=== PATIENT | male | born 1970 | race African-American/Black ===

== ENCOUNTER 2020-03-25 00:32 | Inpatient (IN) ==
[2020-03-25] MEDS ORDERED: ZOFRAN INJ 4 MG VIAL ONE ×2 (00:39→05:02)
[2020-03-25] MEDS ORDERED: APRESOLINE INJ 20 MG VIAL IVP ONE ×3 (00:47→14:36)
[2020-03-25] MEDS ORDERED: ZOFRAN INJ 4 MG VIAL IM ONE (00:50)
[2020-03-25 00:52] VITALS: BMI 32.5
[2020-03-25] MEDS ORDERED: APRESOLINE INJ 20 MG VIAL ONE ×3 (00:57→14:52)
--- NOTE | 2020-03-25 01:02 | DR.N/VMALE ---
HPI Time Seen Time Seen by Provider: 03/25/20 00:46 HPI Comment HPI Comment: Brought in by ems with elevated bp and "afib"; appears reluctant to speak and begins vomiting and c/o abd pain which began this afternoon; denies h/o afib, no cp, sob, fever or chills; admits to having a beer and a "shot" of alcohol earlier today but denies drugs. PMH PMH Past Medical History: Hypertension Past Surgical History: No Surgical History: No History Family History Family Medical History: Diabetes Mellitus, Cancer, Coronary Artery Disease and Hypertension Social History Do you use any recreational Drugs:: No ROS Review of Systems Constitutional: Malaise Eyes: No Symptoms Reported ENTM: No Symptoms Reported Respiratoy: No Symptoms Reported Cardiovascular: No Symptoms Reported Gastrointestinal/Abdominal: See HPI Genitourinary: No Symptoms Reported Neurological: No Symptoms Reported Musculoskeletal: No Symptoms Reported Integumentary: No Symptoms Reported Hematologic/Lymphatic: No Symptoms Reported PE Vital Signs Vitals: Temperature 98 F Pulse Rate [Apical] 97 Pulse Rate 71 Respiratory Rate 18 Blood Pressure [Left Arm] 197/113 Blood Pressure 228/115 O2 Sat by Pulse Oximetry 95 General Limitations: Other (somnolent, uncooperative, low speech) General Appearance: Alert Head Head Exam: Normal Inspection, Atraumatic and Normocephalic Eyes Eye exam: Normal Appearance Neck Neck Exam: Normal Inspection, Full ROM and Trachea Midline Chest Chest Inspection: Normal Inspection and Symmetric Chest Wall Rise Respiratory Respiratory Exam: Normal Lung Sounds Bilat Respiratory Exam: Bilateral: Clear to Auscultation Cardiovascular Cardiovascular Exam: Regular Rate and Normal Rhythm Abdominal Exam Abdominal Exam: Normal Inspection, Normal Bowel Sounds and Tenderness (actively throwing up) Extremities Extremities Exam: Normal Inspection and Full ROM Back Back Exam: Normal Inspection and Full ROM Psychiatric Psychiatric Exam: Flat Affect Skin Skin Exam: Warm and Dry COURSE Treatment Treatment: use morphine for prn abd pain as pt throwing up and has crf emesis appears coffee ground Reevaluation 1st: Unchanged 2nd: Worsened ("cramping" abd pain) ROR Labs Reviewed Laboratory Results Reviewed?: Yes Result Diagrams: 03/25/20 00:57 03/25/20 00:57 Laboratory: WBC 9.3 X10^3/uL (3.6-10.0) 03/25/20 00:57 RBC 5.47 X10^6/uL (4.7-6.0) 03/25/20 00:57 Hgb 17.2 g/dL (13.5-18.0) 03/25/20 00:57 Hct 50.6 % (42.0-54.0) 03/25/20 00:57 MCV 92.6 fL (80.0-100.0) 03/25/20 00:57 MCH 31.4 pg (27.0-34.0) 03/25/20 00:57 MCHC 34.0 g/dL (33.0-35.0) 03/25/20 00:57 RDW 13.7 % (11.6-16.5) 03/25/20 00:57 Plt Count 340 X10^3/uL (150.0-450.0) 03/25/20 00:57 MPV 8.8 fL (7.4-11.0) 03/25/20 00:57 Neut % (Auto) 83.4 % (42.0-75.0) H 03/25/20 00:57 Lymph % (Auto) 11.0 % (21.0-51.0) L 03/25/20 00:57 [place] % (Auto) 4.1 % (0.0-13.0) 03/25/20 00:57 Eos % (Auto) 0.5 % (0.9-2.9) L 03/25/20 00:57 Baso % (Auto) 1.0 % (0.2-1.0) 03/25/20 00:57 Neut # (Auto) 7.8 x10^3/uL (2.2-4.8) H 03/25/20 00:57 Lymph # (Auto) 1.0 X10^3/uL (1.3-2.9) L 03/25/20 00:57 [place] # (Auto) 0.4 x10^3/uL (0.3-0.8) 03/25/20 00:57 Eos # (Auto) 0.0 x10^3/uL (0.0-0.2) 03/25/20 00:57 Baso # (Auto) 0.1 X10^3/uL (0.0-0.1) 03/25/20 00:57 Absolute Nucleated RBC 0.3 /100WBC 03/25/20 00:57 Sodium 148 mmol/L (136-145) H 03/25/20 00:57 Corrected Sodium 149 mmol/L (136-145) H 03/25/20 00:57 Potassium 3.1 mmol/L (3.5-5.1) L 03/25/20 00:57 Chloride 111 mmol/L (98-107) H 03/25/20 00:57 Carbon Dioxide 25.6 mmol/L (21-32) 03/25/20 00:57 BUN 17 mg/dL (7-18) 03/25/20 00:57 Creatinine 3.23 mg/dL (0.70-1.30) H 03/25/20 00:57 Est GFR (MDRD) Af Amer 27 (>60) L 03/25/20 00:57 Est GFR (MDRD) Non-Af 22 (>60) L 03/25/20 00:57 Glucose 128 mg/dL (65-99) H 03/25/20 00:57 Calcium 9.2 mg/dL (8.5-10.1) 03/25/20 00:57 Corrected Calcium 10.7 mg/dL (8.5-10.1) H 03/25/20 00:57 Total Bilirubin 0.70 mg/dL (0.2-1.0) 03/25/20 00:57 AST 34 Units/L (15-37) 03/25/20 00:57 ALT 36 Units/L (12-78) 03/25/20 00:57 Alkaline Phosphatase 81 Units/L (46-116) 03/25/20 00:57 Creatine Kinase 650 Units/L (39-308) H 03/25/20 00:57 CK-MB (CK-2) 6.8 ng/mL (0-4.0) H* 03/25/20 00:57 CK/CKMB % Calc 1.1 % (<4) 03/25/20 00:57 Troponin I < 0.02 ng/mL (0-1.5) 03/25/20 00:57 Total Protein 6.4 g/dL (6.4-8.2) 03/25/20 00:57 Albumin 2.1 g/dL (3.4-5.0) L 03/25/20 00:57 Globulin 4.3 g/dL (2.5-4.5) 03/25/20 00:57 Albumin/Globulin Ratio 0.5 Ratio (1.1-2.1) L 03/25/20 00:57 Amylase 211 Units/L (25-115) H 03/25/20 00:57 Lipase 67 Units/L (73-393) L 03/25/20 00:57 Specimen Type Clean catch urine 03/25/20 01:03 Urine Color Yellow (YELLOW) 03/25/20 01:03 Urine Appearance Clear (CLEAR) 03/25/20 01:03 Urine pH 7.0 (5.0 - 8.0) 03/25/20 01:03 Ur Specific [place] 1.015 (1.000-1.030) 03/25/20 01:03 Urine Protein 4+ (NEGATIVE) 03/25/20 01:03 Urine Glucose (UA) 2+ (NEGATIVE) 03/25/20 01:03 Urine Ketones 1+ (NEGATIVE) 03/25/20 01:03 Urine Occult Blood 3+ (NEGATIVE) 03/25/20 01:03 Urine Nitrite Negative (NEGATIVE) 03/25/20 01:03 Urine Bilirubin Negative (NEGATIVE) 03/25/20 01:03 Urine Urobilinogen Normal (NORMAL) 03/25/20 01:03 Ur Leukocyte Esterase Negative (NEGATIVE) 03/25/20 01:03 Urine RBC 3-5 /HPF (0-3) A 03/25/20 01:03 Urine WBC None seen /HPF (0-5) 03/25/20 01:03 Ur Squamous Epith Cells Few /HPF (NEGATIVE) 03/25/20 01:03 Urine Bacteria Negative /HPF (NEGATIVE) 03/25/20 01:03 Other Casts Few /LPF (NEGATIVE) 03/25/20 01:03 Ur Culture Indicated? No/not indicated 03/25/20 01:03 Stool Description Fob tube 03/25/20 03:35 Stl Occult Blood (IFOB) Positive (NEGATIVE) A 03/25/20 03:35 Urine Opiates Screen Negative (NEG=<300) 03/25/20 01:03 Urine Methadone Screen Negative (NEG=<300) 03/25/20 01:03 Ur Barbiturates Screen Negative (NEG=<200) 03/25/20 01:03 Ur Phencyclidine Scrn Negative (NEG=<25) 03/25/20 01:03 Ur Amphetamines Screen Negative (NEG=<1000) 03/25/20 01:03 U Benzodiazepines Scrn Negative (NEG=<200) 03/25/20 01:03 Urine Cocaine Screen Positive (NEG=<300) 03/25/20 01:03 U Marijuana (THC) Screen Negative (NEG=<50) 03/25/20 01:03 Ethyl Alcohol mg/dL < 3 mg/dL (0-19.9) 03/25/20 00:57 XRAY XRAY Interpreted by: Radiologist X-ray Results: 1. THE LUNGS ARE CLEAR AND THE HEART SIZE IS NORMAL. 2. THE BOWEL GAS PATTERN IS NONOBSTRUCTIVE. Opioid Opioid Risk Tool Family Hx of Substance Abuse: Alcohol Personal Hx of Substance Abuse: Alcohol Age (Nav box if 16-45): No History of Preadolescent Sexual Abuse: No Psychological Disease: Depression Total: 0 Total Score Risk Category: Low Risk Copyright: Wilber AGEE predicting aberrant behaviors Diagnosis Discharge Problem: Acute GI bleeding, Acute hypokalemia, Cocaine abuse Hematuria Qualifiers: Hematuria type: other microscopic Qualified Code(s): R31.29 - Other microscopic hematuria Acute on chronic renal failure Qualifiers: Acute renal failure type: unspecified Chronic kidney disease stage: unspecified stage Qualified Code(s): N17.9 - Acute kidney failure, unspecified Instructions Instructions: Gastrointestinal Bleeding, [id number] Forms: Excuse From Work Precautions for COVID19 Patient Portal Social Distancing
[2020-03-25 01:17] LABS: BASOPHILS # (AUTO) 0.1 X10^3/uL (0.0-0.1); EOSINOPHILS % (AUTO) 0.5 % (0.9-2.9); HEMATOCRIT 50.6 % (42.0-54.0); HEMOGLOBIN 17.2 g/dL (13.5-18.0); MEAN CORPUSCULAR HEMOGLOBIN 31.4 pg (27.0-34.0); MEAN CORPUSCULAR VOLUME 92.6 fL (80.0-100.0); MEAN PLATELET VOLUME 8.8 fL (7.4-11.0); MONOCYTES # (AUTO) 0.4 x10^3/uL (0.3-0.8); MONOCYTES % (AUTO) 4.1 % (0.0-13.0); NEUTROPHILS # (AUTO) 7.8 x10^3/uL (2.2-4.8); NEUTROPHILS % (AUTO) 83.4 % (42.0-75.0); PLATELET COUNT 340 X10^3/uL (150.0-450.0); RED BLOOD COUNT 5.47 X10^6/uL (4.7-6.0); RED CELL DISTRIBUTION WIDTH 13.7 % (11.6-16.5); WHITE BLOOD COUNT 9.3 X10^3/uL (3.6-10.0)
[2020-03-25 01:27] LABS: BILIRUBIN,URINE NEGATIVE (NEGATIVE); BLOOD/HEMOGLOBIN,URINE 3+ (NEGATIVE); GLUCOSE, URINE 2+ (NEGATIVE); KETONES,URINE 1+ (NEGATIVE); LEUKOCYTE ESTERASE ,URINE NEGATIVE (NEGATIVE); NITRITES,URINE NEGATIVE (NEGATIVE); PROTEIN,URINE 4+ (NEGATIVE); UROBILINOGEN,URINE NORMAL (NORMAL)
[2020-03-25 01:28] LABS: APPEARANCE,URINE CLEAR (CLEAR); COLOR,URINE YELLOW (YELLOW)
[2020-03-25 01:55] LABS: ALANINE AMINOTRANSFERASE 36 Units/L (12-78); ALBUMIN 2.1 g/dL (3.4-5.0); ALKALINE PHOSPHATASE 81 Units/L (46-116); AMYLASE 211 Units/L (25-115); ASPARTATE AMINO TRANSFERASE 34 Units/L (15-37); BLOOD ALCOHOL < 3 mg/dL (0-19.9); BLOOD UREA NITROGEN 17 mg/dL (7-18); CALCIUM 9.2 mg/dL (8.5-10.1); CARBON DIOXIDE 25.6 mmol/L (21-32); CHLORIDE 111 mmol/L (98-107); CKMB % 1.1 % (<4); COR CA(FOR HYPOALB) 10.7 mg/dL (8.5-10.1); COR NA(FOR HYPERGLY) 149 mmol/L (136-145); CREATINE KINASE 650 Units/L (39-308); CREATININE 3.23 mg/dL (0.70-1.30); LIPASE 67 Units/L (73-393); SODIUM 148 mmol/L (136-145); TOTAL PROTEIN 6.4 g/dL (6.4-8.2); TROPONIN I < 0.02 ng/mL (0-1.5); eGFR NON BLACK RACES 22 (>60)
[2020-03-25 01:59] LABS: CREATINE KINASE MB 6.8 ng/mL (0-4.0)
--- NOTE | 2020-03-25 02:00 | RAD ---
STUDY: ACUTE ABDOMEN SERIESCOMPARISON: NoneHISTORY: pt c/o n/v admits to drinking liquor and beer todayFINDINGS:CHEST:There is no focal consolidation seen.The heart size is normal.The mediastinum is unremarkable.There is no evidence of pleural effusion or gross pneumothorax.ABDOMEN:The bowel gas pattern is nonobstructive.There is no gross evidence of free air.There are no abnormal masses or calcification seen.The visualized bones demonstrate degenerative changes.IMPRESSION:1. THE LUNGS ARE CLEAR AND THE HEART SIZE IS NORMAL.2. THE BOWEL GAS PATTERN IS NONOBSTRUCTIVE.Electronically signed by: Twan Kilgore (March 25, 2020 01:59:18)
[2020-03-25 03:07] LABS: SQUAMOUS EPITHELIAL CELL,UR FEW /HPF (NEGATIVE)
[2020-03-25 03:08] LABS: BACTERIA,URINE NEGATIVE /HPF (NEGATIVE); OTHER CASTS, URINE FEW /LPF (NEGATIVE)
[2020-03-25] MEDS ORDERED: NS 1000 ML 1,000 ML IV ONE (03:33)
[2020-03-25] MEDS ORDERED: NS 1000 ML 1,000 ML ONE ×2 (03:41→06:11)
[2020-03-25] MEDS ORDERED: K-RIDER 10 MEQ/NS 100 ML 10 MEQ/100 ML BAG IV ONE (03:44)
[2020-03-25] MEDS: K-RIDER 10 MEQ/NS 100 ML 10 MEQ/100 ML BAG IV SCH ×2 (03:49→09:13)
[2020-03-25] MEDS ORDERED: LOPRESSOR INJ 5 MG AMP IVP ONE (04:38)
[2020-03-25] MEDS ORDERED: PROTONIX INJ 40 MG VIAL IVP ONE (04:41)
[2020-03-25] MEDS ORDERED: PROTONIX INJ 40 MG VIAL ONE (04:44)
[2020-03-25] MEDS ORDERED: LOPRESSOR INJ 5 MG AMP ONE (04:44)
[2020-03-25] MEDS ORDERED: ZOFRAN INJ 4 MG VIAL IV ONE (04:58)
[2020-03-25] MEDS ORDERED: MORPHINE SULFATE INJ 2 MG INJ IV ONE (05:00)
[2020-03-25] MEDS ORDERED: MORPHINE SULFATE INJ 2 MG INJ ONE (05:02)
[2020-03-25] MEDS ORDERED: CARDIZEM INJ 50 MG VIAL IVP ONE (05:13)
[2020-03-25] MEDS ORDERED: CARDIZEM INJ 50 MG VIAL ONE (05:33)
[2020-03-25] MEDS ORDERED: MORPHINE SULFATE INJ 2 MG INJ IVP PRN (05:33)
[2020-03-25] MEDS ORDERED: CARDIZEM INJ 125 MG VIAL 125 MG in NS 100 ML IV 100 ML IV PRN (05:33)
[2020-03-25] MEDS ORDERED: NS 100 ML IV 100 ML IV ONE (06:06)
[2020-03-25] MEDS ORDERED: CARDIZEM INJ 125 MG VIAL ONE (06:07)
--- NOTE | 2020-03-25 08:32 | US ---
HISTORYHematuria, chronic renal failureSTUDYRENAL SONOGRAMTechnique: Multiple grayscale sonographic images were obtained.COMPARISONNoneFINDINGSThe right kidney measured 10 x 4.8 x 5.2 cm. Cortical thickness is normal. Cortical echogenicity is increased suggestive of chronic renal disease. No solid masses, hydronephrosis, stones, or perinephric fluid collections are identified. The left kidney measured 10.6 x 5.2 x 5.5 cm. Cortical thickness is normal. Increased cortical echogenicity is identified suggestive of medical renal disease. No solid masses, hydronephrosis, stones, or perinephric fluid collections are identified. Trace ascites is identified. No bladder abnormality is identified.IMPRESSIONNo evidence for hydronephrosisIncreased renal cortical echogenicity suggestive of medical renal diseaseElectronically signed by: RANDAL SHELTON (March 25, 2020 08:31:05)
[2020-03-25] MEDS: PROTONIX INJ 40 MG VIAL IVP SCH (09:13)
[2020-03-25 10:27] LABS: BASOPHILS % (AUTO) 0.3 % (0.2-1.0); HEMATOCRIT 51.5 % (42.0-54.0); HEMOGLOBIN 17.4 g/dL (13.5-18.0); LYMPHOCYTES # (AUTO) 0.7 X10^3/uL (1.3-2.9); LYMPHOCYTES % (AUTO) 5.3 % (21.0-51.0); MEAN CORPUSCULAR HEMOGLOBIN 31.3 pg (27.0-34.0); MEAN CORPUSCULAR HGB CONC 33.8 g/dL (33.0-35.0); MEAN CORPUSCULAR VOLUME 92.6 fL (80.0-100.0); MEAN PLATELET VOLUME 8.6 fL (7.4-11.0); MONOCYTES # (AUTO) 0.6 x10^3/uL (0.3-0.8); MONOCYTES % (AUTO) 4.5 % (0.0-13.0); NEUTROPHILS # (AUTO) 12.6 x10^3/uL (2.2-4.8); NEUTROPHILS % (AUTO) 89.9 % (42.0-75.0); PLATELET COUNT 358 X10^3/uL (150.0-450.0); RED BLOOD COUNT 5.56 X10^6/uL (4.7-6.0); RED CELL DISTRIBUTION WIDTH 14.1 % (11.6-16.5)
[2020-03-25 10:32] LABS: BLOOD UREA NITROGEN 20 mg/dL (7-18); CALCIUM 8.9 mg/dL (8.5-10.1); CARBON DIOXIDE 20.6 mmol/L (21-32); CHLORIDE 111 mmol/L (98-107); CREATININE 2.86 mg/dL (0.70-1.30); SODIUM 146 mmol/L (136-145); eGFR NON BLACK RACES 25 (>60)
[2020-03-25] MEDS ORDERED: K-RIDER 10 MEQ/NS 100 ML 10 MEQ/100 ML BAG IV PRN (10:39)
[2020-03-25] MEDS ORDERED: MICRO K EXTEN CAP 10 MEQ PO PRN (10:39)
[2020-03-25] MEDS ORDERED: K-DUR TAB 20 MEQ PO PRN (10:39)
[2020-03-25] MEDS ORDERED: MAGNESIUM SULFATE 1 GRAM/100 mL PREMIX 1 GM/100 ML BAG IV PRN (10:39)
[2020-03-25] MEDS ORDERED: POTASSIUM CHLORIDE LIQ 20 MEQ UDC PO PRN (10:39)
[2020-03-25] MEDS ORDERED: KLOR-CON PO PRN (10:39)
[2020-03-25] MEDS ORDERED: POTASSIUM CHL 40 MEQ/NS 0.45% 500 ML IV PRN (10:39)
[2020-03-25] MEDS ORDERED: POTASSIUM CHL 60 MEQ/NS 0.45% 500 ML IV PRN (10:39)
[2020-03-25] MEDS ORDERED: CATAPRES-TTS-2 TD SCH (11:00)
[2020-03-25] MEDS: MILK OF MAGNESIA PO SCH ×2 (11:12→21:05)
[2020-03-25 11:59] LABS: ALANINE AMINOTRANSFERASE 35 Units/L (12-78); ALBUMIN 2.1 g/dL (3.4-5.0); ALKALINE PHOSPHATASE 81 Units/L (46-116); ASPARTATE AMINO TRANSFERASE 34 Units/L (15-37); CKMB % 1.4 % (<4); COR CA(FOR HYPOALB) 10.4 mg/dL (8.5-10.1); CREATINE KINASE 506 Units/L (39-308); TOTAL PROTEIN 6.6 g/dL (6.4-8.2); TROPONIN I 0.13 ng/mL (0-1.5)
[2020-03-25] MEDS: CARDIZEM CD 180 MG 24-HR PO SCH (12:56)
[2020-03-25] MEDS: ZOFRAN INJ 4 MG VIAL IVP PRN (14:00)
[2020-03-25] MEDS: CARDIZEM INJ 125 MG VIAL 125 MG in NS 100 ML IV 100 ML IV PRN (15:28)
[2020-03-25] MEDS: LOPRESSOR TAB 50 MG PO SCH ×2 (15:50→21:03)
[2020-03-25] MEDS ORDERED: PHENERGAN INJ 25 MG IM ONE (17:22)
[2020-03-25] MEDS: PHENERGAN INJ 25 MG IM PRN (17:36)
[2020-03-25 18:57] LABS: CKMB % 1.8 % (<4); TROPONIN I 0.12 ng/mL (0-1.5)
[2020-03-25] MEDS: NS 1000 ML 1,000 ML IV SCH ×2 (19:42→21:02)
[2020-03-25] MEDS: COLACE CAP 100 MG PO SCH (21:03)
[2020-03-25 21:20] LABS: CREATINE KINASE MB 6.2 ng/mL (0-4.0)
[2020-03-25 22:46] LABS: CKMB % 1.7 % (<4); TROPONIN I 0.16 ng/mL (0-1.5)
[2020-03-25 22:51] LABS: CREATINE KINASE MB 5.5 ng/mL (0-4.0)
[2020-03-26] MEDS: CARDIZEM INJ 125 MG VIAL 125 MG in NS 100 ML IV 100 ML IV PRN (00:48)
[2020-03-26 06:32] LABS: BASOPHILS # (AUTO) 0.1 X10^3/uL (0.0-0.1); EOSINOPHILS # (AUTO) 0.1 x10^3/uL (0.0-0.2); EOSINOPHILS % (AUTO) 0.8 % (0.9-2.9); HEMATOCRIT 44.3 % (42.0-54.0); HEMOGLOBIN 14.8 g/dL (13.5-18.0); LYMPHOCYTES # (AUTO) 2.4 X10^3/uL (1.3-2.9); LYMPHOCYTES % (AUTO) 16.1 % (21.0-51.0); MEAN CORPUSCULAR HEMOGLOBIN 31.4 pg (27.0-34.0); MEAN CORPUSCULAR HGB CONC 33.4 g/dL (33.0-35.0); MEAN CORPUSCULAR VOLUME 94.1 fL (80.0-100.0); MEAN PLATELET VOLUME 9.3 fL (7.4-11.0); MONOCYTES # (AUTO) 1.4 x10^3/uL (0.3-0.8); MONOCYTES % (AUTO) 9.2 % (0.0-13.0); NEUTROPHILS # (AUTO) 11.1 x10^3/uL (2.2-4.8); NEUTROPHILS % (AUTO) 72.9 % (42.0-75.0); PLATELET COUNT 326 X10^3/uL (150.0-450.0); RED BLOOD COUNT 4.71 X10^6/uL (4.7-6.0); RED CELL DISTRIBUTION WIDTH 14.2 % (11.6-16.5); WHITE BLOOD COUNT 15.2 X10^3/uL (3.6-10.0)
[2020-03-26 06:48] LABS: ALANINE AMINOTRANSFERASE 25 Units/L (12-78); ALBUMIN 1.7 g/dL (3.4-5.0); ALKALINE PHOSPHATASE 58 Units/L (46-116); ASPARTATE AMINO TRANSFERASE 26 Units/L (15-37); BLOOD UREA NITROGEN 20 mg/dL (7-18); CALCIUM 7.8 mg/dL (8.5-10.1); CARBON DIOXIDE 23.9 mmol/L (21-32); CHLORIDE 113 mmol/L (98-107); COR CA(FOR HYPOALB) 9.6 mg/dL (8.5-10.1); CREATININE 3.29 mg/dL (0.70-1.30); SODIUM 146 mmol/L (136-145); TOTAL PROTEIN 5.1 g/dL (6.4-8.2); eGFR NON BLACK RACES 21 (>60)
[2020-03-26] MEDS: K-RIDER 10 MEQ/NS 100 ML 10 MEQ/100 ML BAG IV SCH (08:48)
[2020-03-26] MEDS: PROTONIX INJ 40 MG VIAL IVP SCH (08:50)
[2020-03-26] MEDS: NS 1000 ML 1,000 ML IV SCH ×2 (08:51→22:16)
[2020-03-26] MEDS: LOPRESSOR TAB 50 MG PO SCH ×2 (08:51→20:47)
[2020-03-26] MEDS: MILK OF MAGNESIA PO SCH ×2 (08:51→22:16)
--- NOTE | 2020-03-26 11:26 | DR.H&P ---
H&P - History & Physical for Day of: H&P Date: 03/25/20 - Chief Complaint Chief Complaint: ABDOMINAL PAIN, FATIGUE, VOMITING, A-FIB, HTN - History of Present Illness History of Present Illness: IS A 50 YEAR OLD BLACK MALE WHO PRESENTED TO THE ER VIA EMS WITH REPORTS OF ELEVATED BLOOD PRESSURE AND ATRIAL FIBRILLATION. PATIENT REPORTS COMPLAINTS OF ABDOMINAL PAIN, VOMITING, AND FATIGUE. SYMPTOMS BEGAN APPROXIMATELY 12 HOURS PRIOR TO ARRIVAL. HE RATES PAIN 5/10. HE DENIES CHEST PAIN, SOB, FEVER, OR CHILLS. HE DOES ADMIT TO HAVING A BEER AND A SHOT OF LIQUOR EARLIER IN THE DAY. HE ALSO ADMITTED TO USE OF COCAINE. PMH INCLUDES HTN. ON ARRIVAL TO THE ER, VITALS WERE 98.0-71-26-95%-228/115. LABS WERE OBTAINED. ABNORMAL LAB VALUES INCLUDE THE FOLLOWING: SODIUM 148, POTASSIUM 3.1, CHLORIDE 111, CREATININE 3.23, GLUCOSE 128, CALCIUM 10.7, CREATINE KINASE 650, CK-MB 6.8, ALBUMIN 2.1, AMYLASE 211, LIPASE 67. A URINALYSIS WAS OBTAINED AND REVEALED: WBC NONE SEEN, RBC 3-5, OCCULT 3+, BACTERIA NEGATIVE, KETONES 1+, PROTEIN 4+. STOOL IS POSTIVE FOR OCCULT BLOOD. URINE DRUG SCREEN IS POSITIVE FOR COCAINE. AN ABDOMINAL XRAY WAS OBTAINED AND REVEALED: 1. THE LUNGS ARE CLEAR AND THE HEART SIZE IS NORMAL. 2. THE BOWEL GAS PATTERN IS NONOBSTRUCTIVE. AN EKG WAS OBTAINED AND REVEALE SINUS ARRHYTHMIA WITH HR 57. A RENAL US WAS OBTAINED AND REVEALED: No evidence for hydronephrosis. Increased renal cortical echogenicity suggestive of medical renal disease. HE WAS GIVEN APRESOLINE 20MG IV X 1 DOSE, ZOFRAN 4MG IM X 1 DOSE. BLOOD PRESSURE REMAINE ELEVATED. HE WAS GIVEN AN ADDITIONAL DOSE OF APRESOLINE 20MG, A NORMAL SALINE BOLUS, LOPRESSOR 5MG IV X 1, ZOFRAN 4MG IV X 1, AND MORPHINE 2MG IV X 1. BLOOD PRESSURE ONLY DECREASED TO 198/110. HE WAS STARTED ON A CARDIZEM DRIP. HE WAS ADMITTED FOR FURTHER EVALUATION AND TREATMENT OF HYPERT ENSIVE URGENCY, GI BLEED, N/V/D, AND ACUTE ON CHRONIC RENAL FAILURE. HE WAS STARTED ON NS AT 80ML/HR, THE POPTASSIUM AND MAGNESIUM PROTOCOLS, LOPRESSOR 50MG PO BID, CATAPRES 0.2MG/HR TD PATCH, MORPHINE 2MG IV Q8H PRN, AND ZOFRAN 4MG IV Q8H PRN. WE WILL DISCONTINUE THE DRIP AND STARTE CARDIZEM CD 180MG PO DAILY. WE WILL MONITOR SERIAL CARDIAC ENZYMES AND EKGS. OTHERWISE, WE PLAN TO FOLLOW UP WITH AM LABS AND CONTINUE TO MONITOR. - Past Medical History Past Medical History: Hypertension - Past Surgical History Surgical History: No History - Family History Family Medical History: Diabetes Mellitus, Cancer, Coronary Artery Disease, Hypertension - Social History Does patient currently use any type of tobacco product: Yes Have you used tobacco products in the last 12 months: Yes Type of Tobacco Use: Cigarettes Does any household member use tobacco: No Alcohol Use: Occasionally Drug Use: Cocaine, Marijuana - Medications Home Medications: No Known Drug Allergies Allergy (Verified 11/23/19 16:59) CONTINUE taking the following medications NK 03/25/20 [History] - Review of Systems Constitutional: Malaise Eyes: No Symptoms Reported ENT: No Symptoms Reported Respiratory: No Symptoms Reported Cardiovascular: See HPI, Palpitations Gastrointestinal: See HPI, Vomiting, Abdominal Pain Genitourinary: No Symptoms Reported Musculoskeletal: No Symptoms Reported Skin: No Symptoms Reported Neurological: No Symptoms Reported - Physical Exam Vital Signs: Temperature 98.3 F Pulse Rate [Right Brachial] 64 Pulse Rate [Apical] 97 Pulse Rate 78 Respiratory Rate 18 Blood Pressure [Right Arm] 117/60 Blood Pressure [Left Arm] 197/113 Blood Pressure 220/122 O2 Sat by Pulse Oximetry 94 Oriented: Normal Eyes: Normal Ear: Normal Nose: Normal Throat: Normal Respiratory: Diminished Throughout Cardiovascular: Irregular. negative: S3, S4, Murmur : Normal Auscultation: Bowel Sounds: Normal Palpation: Normal Tenderness: Normal Skin: Normal Musculoskeletal: Normal Psychiatric: Normal Mood Description: Calm Affect: Normal Speech Pattern: Clear - Assessment/Plan (1) Hypertensive urgency Status: Acute Plan: ADMIT, NS AT 80ML/HR, THE POPTASSIUM AND MAGNESIUM PROTOCOLS, LOPRESSOR 50MG PO BID,CARDIZEM CD 180MG PO DAILY, CATAPRES 0.2MG/HR TD PATCH, MORPHINE 2MG IV Q8H PRN, AND ZOFRAN 4MG IV Q8H PRN. (2) Acute on chronic renal failure Qualifiers: Acute renal failure type: unspecified Chronic kidney disease stage: unspecified stage Qualified Code(s): N17.9 - Acute kidney failure, unspecified; N18.9 - Chronic kidney disease, unspecified Status: Acute (3) Hypernatremia Status: Acute (4) Acute hypokalemia Status: Acute (5) Acute GI bleeding Status: Acute (6) Nausea and vomiting Qualifiers: Vomiting type: unspecified Vomiting Intractability: non-intractable Qualified Code(s): R11.2 - Nausea with vomiting, unspecified Status: Acute - Allergies Allergies/Adverse Reactions: Allergies Allergy/AdvReac Type Severity Reaction Status Date / Time No Known Drug Allergies Allergy Verified 11/23/19 16:59
--- NOTE | 2020-03-26 14:56 | RAD ---
HISTORYSOBSTUDYCHEST, 1 VIEWCOMPARISONChest film December 01, 2019.FINDINGSThe trachea is midline. The cardiac silhouette is unremarkable . The lungs are clear without focal infiltrate or effusion. The bony thorax is unremarkable.IMPRESSIONNo acute cardiopulmonary disease and no significant change compared to December 01, 2019..Electronically signed by: FELIPE TEE (March 26, 2020 14:55:16)
[2020-03-26] MEDS: COLACE CAP 100 MG PO SCH (20:47)
--- NOTE | 2020-03-26 22:31 | PCM.PROG ---
Progress Note - Progress Note for Day of Date of Exam: 03/26/20 - Subjective Subjective: IS BEING TREATED FOR HYPERTENSIVE URGENCY, HYPERNATREMIA, HYPOKALEMIA, GI BLEED, NAUSEA AND VOMITING, AND ACUTE ON CHRONIC RENAL FAILURE. TODAY, HE IS ALERT, LYING IN BED ON MORNING ROUNDS. HE CONTINUES WITH COMPLAINTS OF NAUSEA. HE REPORTS MILD ABDOMINAL PAIN THIS MORNING. ON EXAMINATION, HEART IS REGULAR IN RATE AND RHYTHM. BILATERAL LUNGS ARE NOTED WITH DIMINISHED LUNG SOUNDS THROUGHOUT. ABDOMEN IS ROUND, SOFT, AND NOTED WITH DIFFUSE TENDERNESS TO PALPATION. NORMAL BOWEL SOUNDS ARE NOTED IN ALL QUADRANTS. HIS VITALS THIS MORNING ARE: 98.3-60-16-94%RA-112/56. LABS WERE OBTAINED. ABNORMAL LAB VALUES INCLUDE THE FOLLOWING: WBC 15.2, SODIUM 146, POTASSIUM 3.0, CHLORIDE 113, BUN 20, CREATININE 3.29, CALCIUM 7.8, TOTAL PROTEIN 5.1, ALBUMIN 1.7. HE IS CURRENTLY RECEIVING NS AT 80ML/HR, THE POPTASSIUM AND MAGNESIUM PROTOCOLS, LOPRESSOR 50MG PO BID, CATAPRES 0.2MG/HR TD PATCH, CARDIZEM CD 180MG PO DAILY, MORPHINE 2MG IV Q8H PRN, ZOFRAN 4MG IV Q8H PRN, AND THE POTASSIUM AND MAGNESIUM PROTOCOLS. TODAY, WE WILL CHANGE THE IV FLUIDS TO NORMAL SALINE. WE WILL OBTAIN A CHEST XRAY AND STOOL STUDIES DUE TO ELEVATED WBC. WE ALSO PLAN TO OBTAIN AN ABDOMEN/PELVIS CT WITHOUT CONTRAST IN THE MORNING DUE TO PERSISTENT ABDOMINAL PAIN. OTHERWISE, WE PLAN TO FOLLOW UP WITH AM LABS AND CONTINUE TO MONITOR. - Past Medical Family Social History Past Med/Fam/Surg Hx: No changes since H&P Allergies: Allergies No Known Drug Allergies Allergy (Verified 11/23/19 16:59) - Review of Systems ROS: No change since H&P - Vital Signs and I&O's Vital Signs: Temperature 98.0 F Pulse Rate [Right Brachial] 62 Pulse Rate [Apical] 97 Pulse Rate 78 Respiratory Rate 18 Blood Pressure [Right Arm] 121/77 Blood Pressure [Left Arm] 197/113 Blood Pressure 220/122 O2 Sat by Pulse Oximetry 96 Intake and Output: Intake & Output 03/24/20 03/25/20 03/26/20 03/27/20 11:59 11:59 11:59 11:59 Intake Total 1498 / 1498 1200 / 1200 Output Total 350 / 350 700 / 700 Balance -320 / -320 798 / 798 1200 / 1200 - Physical Exam Oriented: Normal Eyes: Normal Ear: Normal Nose: Normal Throat: Normal Respiratory: Generalized, Diminished Cardiovascular: Normal. negative: S3, S4, Murmur : Normal Auscultation: Bowel Sounds: Normal Palpation: Normal Tenderness: Normal Skin: Normal Musculoskeletal: Normal Psychiatric: Normal Mood Description: Calm Affect: Normal Speech Pattern: Clear, Appropriate - Laboratory and Diagnostics Result Diagrams: 03/26/20 05:30 03/26/20 05:30 Labs: Laboratory WBC 15.2 X10^3/uL (3.6-10.0) H 03/26/20 05:30 RBC 4.71 X10^6/uL (4.7-6.0) 03/26/20 05:30 Hgb 14.8 g/dL (13.5-18.0) D 03/26/20 05:30 Hct 44.3 % (42.0-54.0) 03/26/20 05:30 MCV 94.1 fL (80.0-100.0) 03/26/20 05:30 MCH 31.4 pg (27.0-34.0) 03/26/20 05:30 MCHC 33.4 g/dL (33.0-35.0) 03/26/20 05:30 RDW 14.2 % (11.6-16.5) 03/26/20 05:30 Plt Count 326 X10^3/uL (150.0-450.0) 03/26/20 05:30 MPV 9.3 fL (7.4-11.0) 03/26/20 05:30 Neut % (Auto) 72.9 % (42.0-75.0) 03/26/20 05:30 Lymph % (Auto) 16.1 % (21.0-51.0) L 03/26/20 05:30 [place] % (Auto) 9.2 % (0.0-13.0) 03/26/20 05:30 Eos % (Auto) 0.8 % (0.9-2.9) L 03/26/20 05:30 Baso % (Auto) 1.0 % (0.2-1.0) 03/26/20 05:30 Neut # (Auto) 11.1 x10^3/uL (2.2-4.8) H 03/26/20 05:30 Lymph # (Auto) 2.4 X10^3/uL (1.3-2.9) 03/26/20 05:30 [place] # (Auto) 1.4 x10^3/uL (0.3-0.8) H 03/26/20 05:30 Eos # (Auto) 0.1 x10^3/uL (0.0-0.2) 03/26/20 05:30 Baso # (Auto) 0.1 X10^3/uL (0.0-0.1) 03/26/20 05:30 Absolute Nucleated RBC 0.0 /100WBC 03/26/20 05:30 Sodium 146 mmol/L (136-145) H 03/26/20 05:30 Corrected Sodium TNP 03/26/20 05:30 Potassium 3.0 mmol/L (3.5-5.1) L* 03/26/20 05:30 Chloride 113 mmol/L (98-107) H 03/26/20 05:30 Carbon Dioxide 23.9 mmol/L (21-32) 03/26/20 05:30 BUN 20 mg/dL (7-18) H 03/26/20 05:30 Creatinine 3.29 mg/dL (0.70-1.30) H 03/26/20 05:30 Est GFR (MDRD) Af Amer 26 (>60) L 03/26/20 05:30 Est GFR (MDRD) Non-Af 21 (>60) L 03/26/20 05:30 Glucose 88 mg/dL (65-99) 03/26/20 05:30 Calcium 7.8 mg/dL (8.5-10.1) L 03/26/20 05:30 Corrected Calcium 9.6 mg/dL (8.5-10.1) 03/26/20 05:30 Magnesium 2.1 mg/dL (1.7-2.9) 03/25/20 10:13 Total Bilirubin 0.30 mg/dL (0.2-1.0) 03/26/20 05:30 AST 26 Units/L (15-37) 03/26/20 05:30 ALT 25 Units/L (12-78) 03/26/20 05:30 Alkaline Phosphatase 58 Units/L (46-116) 03/26/20 05:30 Creatine Kinase 322 Units/L (39-308) H 03/25/20 21:56 CK-MB (CK-2) 5.5 ng/mL (0-4.0) H* 03/25/20 21:56 CK/CKMB % Calc 1.7 % (<4) 03/25/20 21:56 Troponin I 0.16 ng/mL (0-1.5) 03/25/20 21:56 Total Protein 5.1 g/dL (6.4-8.2) L 03/26/20 05:30 Albumin 1.7 g/dL (3.4-5.0) L 03/26/20 05:30 Globulin 3.4 g/dL (2.5-4.5) 03/26/20 05:30 Albumin/Globulin Ratio 0.5 Ratio (1.1-2.1) L 03/26/20 05:30 Amylase 211 Units/L (25-115) H 03/25/20 00:57 Lipase 67 Units/L (73-393) L 03/25/20 00:57 Specimen Type Clean catch urine 03/25/20 01:03 Urine Color Yellow (YELLOW) 03/25/20 01:03 Urine Appearance Clear (CLEAR) 03/25/20 01:03 Urine pH 7.0 (5.0 - 8.0) 03/25/20 01:03 Ur Specific [place] 1.015 (1.000-1.030) 03/25/20 01:03 Urine Protein 4+ (NEGATIVE) 03/25/20 01:03 Urine Glucose (UA) 2+ (NEGATIVE) 03/25/20 01:03 Urine Ketones 1+ (NEGATIVE) 03/25/20 01:03 Urine Occult Blood 3+ (NEGATIVE) 03/25/20 01:03 Urine Nitrite Negative (NEGATIVE) 03/25/20 01:03 Urine Bilirubin Negative (NEGATIVE) 03/25/20 01:03 Urine Urobilinogen Normal (NORMAL) 03/25/20 01:03 Ur Leukocyte Esterase Negative (NEGATIVE) 03/25/20 01:03 Urine RBC 3-5 /HPF (0-3) A 03/25/20 01:03 Urine WBC None seen /HPF (0-5) 03/25/20 01:03 Ur Squamous Epith Cells Few /HPF (NEGATIVE) 03/25/20 01:03 Urine Bacteria Negative /HPF (NEGATIVE) 03/25/20 01:03 Other Casts Few /LPF (NEGATIVE) 03/25/20 01:03 Ur Culture Indicated? No/not indicated 03/25/20 01:03 Stool Description Fob tube 03/25/20 03:35 Stl Occult Blood (IFOB) Positive (NEGATIVE) A 03/25/20 03:35 Urine Opiates Screen Negative (NEG=<300) 03/25/20 01:03 Urine Methadone Screen Negative (NEG=<300) 03/25/20 01:03 Ur Barbiturates Screen Negative (NEG=<200) 03/25/20 01:03 Ur Phencyclidine Scrn Negative (NEG=<25) 03/25/20 01:03 Ur Amphetamines Screen Negative (NEG=<1000) 03/25/20 01:03 U Benzodiazepines Scrn Negative (NEG=<200) 03/25/20 01:03 Urine Cocaine Screen Positive (NEG=<300) 03/25/20 01:03 U Marijuana (THC) Screen Negative (NEG=<50) 03/25/20 01:03 Ethyl Alcohol mg/dL < 3 mg/dL (0-19.9) 03/25/20 00:57 - Plan (1) Hypertensive urgency Status: Acute Plan: 1/2 NS AT 80ML/HR, THE POTASSIUM AND MAGNESIUM PROTOCOLS, LOPRESSOR 50MG PO BID,CARDIZEM CD 180MG PO DAILY, CATAPRES 0.3MG/HR TD PATCH, MORPHINE 2MG IV Q8H PRN, AND ZOFRAN 4MG IV Q8H PRN. (2) Acute on chronic renal failure Status: Acute Qualifiers: Acute renal failure type: unspecified Chronic kidney disease stage: unspecified stage Qualified Code(s): N17.9 - Acute kidney failure, unspecified; N18.9 - Chronic kidney disease, unspecified Plan: CONTINUE IV FLUIDS (3) Hypernatremia Status: Acute Plan: 1/2NS AT 80 ML/HR (4) Acute hypokalemia Status: Acute Plan: POTASSIUM AND MAGNESIUM PROTOCOLS (5) Acute GI bleeding Status: Acute (6) Nausea and vomiting Status: Acute Qualifiers: Vomiting type: unspecified Vomiting Intractability: non-intractable Qual ified Code(s): R11.2 - Nausea with vomiting, unspecified Plan: OBTAIN ABDOMEN/PELVIS CT IN AM
[2020-03-26] MEDS: NS 1/2 1000 ML IV 1,000 ML IV SCH (23:52)
[2020-03-26] MEDS ORDERED: NS 1/2 1000 ML IV 1,000 ML IV ONE (23:52)
--- NOTE | 2020-03-27 02:55 | CT ---
CT abdomen and pelvis without contrastIndication: Abdominal pain with nausea and vomitingCOMPARISONMay 2019 renal sonogram. November 19, 2018 CT from an outside facilityTECHNIQUEHelical images through the abdomen and pelvis without contrast. Coronal and sagittal reformats provided.FINDINGSLimited images through the lower chest shows prominent heart size with small right effusion. Body wall anasarca suggested. Developing consolidation in the right lower lung not excluded. Review of bone windows demonstrates spine and pelvis DJD without destructive osseous lesion.Abdomen: The liver, gallbladder, spleen, pancreas and adrenal glands are within normal limits for noncontrast study. The kidneys appear normal without hydroureteronephrosis. Few iliac calcifications noted.The stomach and small bowel show no convincing acute abnormality. Few right colonic diverticula noted with minimal adjacent stranding, although this could be related to the diffuse mild anasarca in general mesenteric stranding.. The appendix is normal. No acute colonic abnormality seen.Pelvis: Urinary bladder and rectum are normal. Prostate gland is normal.IMPRESSION1. Right colon diverticula with minimal adjacent stranding. Diverticulitis is not excluded.2. Right lower lung opacity and effusion. Developing right lower lung pneumonia is likely. Correlate clinically and follow-up to resolution to exclude underlying lesion3. Lack of contrast limits sensitivity. Few vascular calcifications, spine DJD, and other findings as above.Electronically signed by: MIROSLAVA SELLERS (March 27, 2020 02:53:39)
[2020-03-27 05:40] LABS: ALANINE AMINOTRANSFERASE 25 Units/L (12-78); ALBUMIN 1.5 g/dL (3.4-5.0); ALKALINE PHOSPHATASE 53 Units/L (46-116); AMYLASE 45 Units/L (25-115); ASPARTATE AMINO TRANSFERASE 11 Units/L (15-37); BLOOD UREA NITROGEN 19 mg/dL (7-18); CALCIUM 7.4 mg/dL (8.5-10.1); CARBON DIOXIDE 24.5 mmol/L (21-32); CHLORIDE 110 mmol/L (98-107); COR CA(FOR HYPOALB) 9.4 mg/dL (8.5-10.1); CREATININE 3.12 mg/dL (0.70-1.30); LIPASE 149 Units/L (73-393); SODIUM 141 mmol/L (136-145); TOTAL PROTEIN 4.5 g/dL (6.4-8.2); eGFR NON BLACK RACES 23 (>60)
[2020-03-27 05:43] LABS: BASOPHILS # (AUTO) 0.1 X10^3/uL (0.0-0.1); BASOPHILS % (AUTO) 0.9 % (0.2-1.0); EOSINOPHILS # (AUTO) 0.5 x10^3/uL (0.0-0.2); EOSINOPHILS % (AUTO) 4.7 % (0.9-2.9); HEMATOCRIT 39.3 % (42.0-54.0); HEMOGLOBIN 13.1 g/dL (13.5-18.0); LYMPHOCYTES % (AUTO) 20.9 % (21.0-51.0); MEAN CORPUSCULAR HEMOGLOBIN 31.7 pg (27.0-34.0); MEAN CORPUSCULAR HGB CONC 33.4 g/dL (33.0-35.0); MEAN CORPUSCULAR VOLUME 94.8 fL (80.0-100.0); MEAN PLATELET VOLUME 9.7 fL (7.4-11.0); MONOCYTES # (AUTO) 1.2 x10^3/uL (0.3-0.8); NEUTROPHILS % (AUTO) 61.5 % (42.0-75.0); PLATELET COUNT 271 X10^3/uL (150.0-450.0); RED BLOOD COUNT 4.14 X10^6/uL (4.7-6.0); RED CELL DISTRIBUTION WIDTH 14.5 % (11.6-16.5); WHITE BLOOD COUNT 9.8 X10^3/uL (3.6-10.0)
[2020-03-27] MEDS: MILK OF MAGNESIA PO SCH ×2 (08:42→20:55)
[2020-03-27] MEDS: LOPRESSOR TAB 50 MG PO SCH ×2 (08:42→20:55)
[2020-03-27] MEDS: PROTONIX INJ 40 MG VIAL IVP SCH (08:42)
[2020-03-27] MEDS: CARDIZEM CD 180 MG 24-HR PO SCH (08:42)
[2020-03-27] MEDS: K-RIDER 10 MEQ/NS 100 ML 10 MEQ/100 ML BAG IV SCH (08:42)
[2020-03-27] MEDS ORDERED: LEVAQUIN PREMIX IV 750 MG 750 MG/150 ML BAG IV SCH (09:00)
[2020-03-27 09:04] LABS: CREATINE KINASE MB 1.9 ng/mL (0-4.0); TROPONIN I 0.03 ng/mL (0-1.5)
[2020-03-27] MEDS: FORTAZ or TAZICEF VIAL INJ 1 G in NS 100 ML IV 100 ML IV SCH (09:49)
[2020-03-27] MEDS: DUONEB 0.5 MG/3 MG (3 mL) NEB SCH ×4 (12:28→21:00)
[2020-03-27] MEDS: ZOFRAN INJ 4 MG VIAL IVP PRN (14:21)
[2020-03-27] MEDS ORDERED: NS 1/2 1000 ML IV 1,000 ML IV ONE (16:59)
[2020-03-27] MEDS: NS 1/2 1000 ML IV 1,000 ML IV SCH (17:01)
[2020-03-27] MEDS: COLACE CAP 100 MG PO SCH (20:55)
[2020-03-27] MEDS: APRESOLINE INJ 20 MG VIAL IVP PRN (22:15)
[2020-03-28] MEDS ORDERED: NS 1/2 1000 ML IV 1,000 ML IV ONE (02:58)
[2020-03-28] MEDS: NS 1/2 1000 ML IV 1,000 ML IV SCH ×2 (03:14→06:41)
--- NOTE | 2020-03-28 05:32 | RAD ---
HISTORYSOBSTUDYAP [id number] normal heart size with clear left chest. There is a diffus e increase in density at the right lower lung suggesting a developing infiltrate. The right upper lob e is clear. No pleural fluid or pneumothorax identified.IMPRESSIONSuspect appearance for developing i nfiltrate or atelectasis in the right lower lung. Continued follow-up suggested for this purpose.Elec tronically signed by: MICHAEL SOTO (March 28, 2020 05:30:44)
[2020-03-28 06:03] LABS: BASOPHILS % (AUTO) 0.6 % (0.2-1.0); EOSINOPHILS # (AUTO) 0.6 x10^3/uL (0.0-0.2); EOSINOPHILS % (AUTO) 7.1 % (0.9-2.9); HEMATOCRIT 38.6 % (42.0-54.0); HEMOGLOBIN 12.9 g/dL (13.5-18.0); LYMPHOCYTES # (AUTO) 1.9 X10^3/uL (1.3-2.9); LYMPHOCYTES % (AUTO) 23.3 % (21.0-51.0); MEAN CORPUSCULAR HEMOGLOBIN 31.9 pg (27.0-34.0); MEAN CORPUSCULAR HGB CONC 33.5 g/dL (33.0-35.0); MEAN CORPUSCULAR VOLUME 95.4 fL (80.0-100.0); MEAN PLATELET VOLUME 9.5 fL (7.4-11.0); MONOCYTES # (AUTO) 0.9 x10^3/uL (0.3-0.8); MONOCYTES % (AUTO) 10.6 % (0.0-13.0); NEUTROPHILS # (AUTO) 4.7 x10^3/uL (2.2-4.8); NEUTROPHILS % (AUTO) 58.4 % (42.0-75.0); PLATELET COUNT 259 X10^3/uL (150.0-450.0); RED BLOOD COUNT 4.05 X10^6/uL (4.7-6.0); RED CELL DISTRIBUTION WIDTH 14.7 % (11.6-16.5); WHITE BLOOD COUNT 8.1 X10^3/uL (3.6-10.0)
[2020-03-28 06:26] LABS: ALBUMIN 1.4 g/dL (3.4-5.0); CALCIUM 7.2 mg/dL (8.5-10.1); CARBON DIOXIDE 25.2 mmol/L (21-32); COR CA(FOR HYPOALB) 9.3 mg/dL (8.5-10.1); CREATININE 2.65 mg/dL (0.70-1.30); MAGNESIUM 2.3 mg/dL (1.7-2.9); TOTAL PROTEIN 4.6 g/dL (6.4-8.2)
[2020-03-28] MEDS: K-RIDER 10 MEQ/NS 100 ML 10 MEQ/100 ML BAG IV SCH (08:39)
[2020-03-28] MEDS: FORTAZ or TAZICEF VIAL INJ 1 G in NS 100 ML IV 100 ML IV SCH (08:43)
[2020-03-28 08:45] LABS: CRYPTOSPORIDIUM PARVUM ANTIGEN NEGATIVE (NEGATIVE); GIARDIA LAMBLIA ANTIGEN NEGATIVE (NEGATIVE)
[2020-03-28] MEDS: PROTONIX INJ 40 MG VIAL IVP SCH (08:50)
[2020-03-28] MEDS: CARDIZEM CD 180 MG 24-HR PO SCH (08:51)
[2020-03-28] MEDS: LOPRESSOR TAB 50 MG PO SCH ×2 (08:51→21:09)
[2020-03-28] MEDS: MILK OF MAGNESIA PO SCH ×2 (08:58→21:10)
[2020-03-28] MEDS: DUONEB 0.5 MG/3 MG (3 mL) NEB SCH ×4 (09:19→21:10)
[2020-03-28] MEDS: LEVAQUIN PREMIX IV 500 MG 500 MG/100 ML BAG IV SCH (10:36)
[2020-03-28] MEDS: AMOXIL CAP 500 MG PO SCH ×2 (10:36→21:09)
[2020-03-28] MEDS: NS 1/2 + KCL 20 MEQ/L 1,000 ML IV SCH ×2 (10:36→23:16)
[2020-03-28] MEDS: PROTONIX TAB 40 MG PO SCH ×2 (10:53→21:10)
--- NOTE | 2020-03-28 11:00 | PCM.PROG ---
Progress Note Progress Note for Day of Date of Exam: 03/28/20 Subjective Subjective: Patient is seen at bedside, reports feeling slightly better. He is admitted for abdominal pain, hypertensive urgency, hypokalemia and GI bleed. Patient reports nausea, no vomiting or diarrhea. He states abdominal pain has improved, tolerating soft diet. He states he still feels dizzy on ambulation. He reports some cough, no fever or chills. He states some SOB with exertion. Labs: K: 3.2 Hgb 12.9 Cr: 2.65 from 3.12 Stool: H Pylori antigen positive, WBC present, [place] (-) FOBT + CXR: increased RLL infiltrate/atelectasis Plan: start on triple therapy for H Pylori: levaquin 500 daily, amoxicillin 500 mg BID and Pantoprazole 40 mg BID Replace K with IVF, advance diet as tolerated, incentive spirometer, albuterol,will check for COVID due to respiratory symptoms. Continue anti-hypertensives, monitor AM labs Past Medical Family Social History Past Med/Fam/Surg Hx: No changes since H&P Allergies: Allergies No Known Drug Allergies Allergy (Verified 11/23/19 16:59) Review of Systems ROS: No change since H&P Vital Signs and I&O's Vital Signs: Temperature 98.0 F Pulse Rate [Right Brachial] 56 Pulse Rate [Apical] 97 Pulse Rate 62 Respiratory Rate 20 Blood Pressure [Right Arm] 152/84 Blood Pressure [Left Arm] 197/113 Blood Pressure 220/122 O2 Sat by Pulse Oximetry 95 Intake and Output: Intake & Output 03/25/20 03/26/20 03/27/20 03/28/20 23:59 23:59 23:59 23:59 Intake Total 995 / 995 2823 / 2823 2029 100 / 100 Output Total 1050 / 1050 975 / 975 450 / 450 Balance -55 / -55 2823 / 2823 1055 / 1055 -350 / -350 Physical Exam Oriented: Normal Eyes: Normal Ear: Normal Nose: Normal Throat: Normal Respiratory: Generalized and Diminished Cardiovascular: Normal; negative S3, S4 and Murmur Auscultation: Bowel Sounds: Normal Tenderness: Normal Skin: Normal Musculoskeletal: Normal Psychiatric: Normal Mood Description: Calm Affect: Normal Speech Pattern: Clear and Appropriate Laboratory and Diagnostics Result Diagrams: 03/28/20 04:11 03/28/20 04:11 Labs: 03/28/20 07:54 Stool - Final Laboratory WBC 8.1 X10^3/uL (3.6-10.0) 03/28/20 04:11 RBC 4.05 X10^6/uL (4.7-6.0) L 03/28/20 04:11 Hgb 12.9 g/dL (13.5-18.0) L 03/28/20 04:11 Hct 38.6 % (42.0-54.0) L 03/28/20 04:11 MCV 95.4 fL (80.0-100.0) 03/28/20 04:11 MCH 31.9 pg (27.0-34.0) 03/28/20 04:11 MCHC 33.5 g/dL (33.0-35.0) 03/28/20 04:11 RDW 14.7 % (11.6-16.5) 03/28/20 04:11 Plt Count 259 X10^3/uL (150.0-450.0) 03/28/20 04:11 MPV 9.5 fL (7.4-11.0) 03/28/20 04:11 Neut % (Auto) 58.4 % (42.0-75.0) 03/28/20 04:11 Lymph % (Auto) 23.3 % (21.0-51.0) 03/28/20 04:11 [place] % (Auto) 10.6 % (0.0-13.0) 03/28/20 04:11 Eos % (Auto) 7.1 % (0.9-2.9) H 03/28/20 04:11 Baso % (Auto) 0.6 % (0.2-1.0) 03/28/20 04:11 Neut # (Auto) 4.7 x10^3/uL (2.2-4.8) 03/28/20 04:11 Lymph # (Auto) 1.9 X10^3/uL (1.3-2.9) 03/28/20 04:11 [place] # (Auto) 0.9 x10^3/uL (0.3-0.8) H 03/28/20 04:11 Eos # (Auto) 0.6 x10^3/uL (0.0-0.2) H 03/28/20 04:11 Baso # (Auto) 0.0 X10^3/uL (0.0-0.1) 03/28/20 04:11 Absolute Nucleated RBC 0.0 /100WBC 03/28/20 04:11 Sodium 139 mmol/L (136-145) 03/28/20 04:11 Corrected Sodium 139 mmol/L (136-145) 03/28/20 04:11 Potassium 3.2 mmol/L (3.5-5.1) L 03/28/20 04:11 Chloride 109 mmol/L (98-107) H 03/28/20 04:11 Carbon Dioxide 25.2 mmol/L (21-32) 03/28/20 04:11 BUN 18 mg/dL (7-18) 03/28/20 04:11 Creatinine 2.65 mg/dL (0.70-1.30) H 03/28/20 04:11 Est GFR (MDRD) Af Amer 33 (>60) L 03/28/20 04:11 Est GFR (MDRD) Non-Af 28 (>60) L 03/28/20 04:11 Glucose 117 mg/dL (65-99) H 03/28/20 04:11 Calcium 7.2 mg/dL (8.5-10.1) L 03/28/20 04:11 Corrected Calcium 9.3 mg/dL (8.5-10.1) 03/28/20 04:11 Magnesium 2.3 mg/dL (1.7-2.9) 03/28/20 04:11 Total Bilirubin 0.10 mg/dL (0.2-1.0) L 03/28/20 04:11 AST 21 Units/L (15-37) 03/28/20 04:11 ALT 26 Units/L (12-78) 03/28/20 04:11 Alkaline Phosphatase 55 Units/L (46-116) 03/28/20 04:11 Creatine Kinase 184 Units/L (39-308) 03/27/20 04:19 CK-MB (CK-2) 1.9 ng/mL (0-4.0) 03/27/20 04:19 CK/CKMB % Calc 1.0 % (<4) 03/27/20 04:19 Troponin I 0.03 ng/mL (0-1.5) 03/27/20 04:19 Total Protein 4.6 g/dL (6.4-8.2) L 03/28/20 04:11 Albumin 1.4 g/dL (3.4-5.0) L 03/28/20 04:11 Globulin 3.2 g/dL (2.5-4.5) 03/28/20 04:11 Albumin/Globulin Ratio 0.4 Ratio (1.1-2.1) L 03/28/20 04:11 Amylase 45 Units/L (25-115) 03/27/20 04:19 Lipase 149 Units/L (73-393) 03/27/20 04:19 Specimen Type Clean catch urine 03/25/20 01:03 Urine Color Yellow (YELLOW) 03/25/20 01:03 Urine Appearance Clear (CLEAR) 03/25/20 01:03 Urine pH 7.0 (5.0 - 8.0) 03/25/20 01:03 Ur Specific [place] 1.015 (1.000-1.030) 03/25/20 01:03 Urine Protein 4+ (NEGATIVE) 03/25/20 01:03 Urine Glucose (UA) 2+ (NEGATIVE) 03/25/20 01:03 Urine Ketones 1+ (NEGATIVE) 03/25/20 01:03 Urine Occult Blood 3+ (NEGATIVE) 03/25/20 01:03 Urine Nitrite Negative (NEGATIVE) 03/25/20 01:03 Urine Bilirubin Negative (NEGATIVE) 03/25/20 01:03 Urine Urobilinogen Normal (NORMAL) 03/25/20 01:03 Ur Leukocyte Esterase Negative (NEGATIVE) 03/25/20 01:03 Urine RBC 3-5 /HPF (0-3) A 03/25/20 01:03 Urine WBC None seen /HPF (0-5) 03/25/20 01:03 Ur Squamous Epith Cells Few /HPF (NEGATIVE) 03/25/20 01:03 Urine Bacteria Negative /HPF (NEGATIVE) 03/25/20 01:03 Other Casts Few /LPF (NEGATIVE) 03/25/20 01:03 Ur Culture Indicated? No/not indicated 03/25/20 01:03 Stool Description 300g,brown,unformed 03/28/20 07:54 Stool Description 300g,brown,unformed' 03/28/20 07:54 Stl Occult Blood (IFOB) Negative (NEGATIVE) 03/28/20 07:54 Stool for White Cells Positive (NEGATIVE) A 03/28/20 07:54 Stl C. diff Tox B Gene Negative (NEGATIVE) 03/28/20 07:54 Stl C. diff 027-NAP1-BI Negative (NEGATIVE) 03/28/20 07:54 Stool H. pylori Ag Positive (NEGATIVE) A 03/28/20 07:54 Urine Opiates Screen Negative (NEG=<300) 03/25/20 01:03 Urine Methadone Screen Negative (NEG=<300) 03/25/20 01:03 Ur Barbiturates Screen Negative (NEG=<200) 03/25/20 01:03 Ur Phencyclidine Scrn Negative (NEG=<25) 03/25/20 01:03 Ur Amphetamines Screen Negative (NEG=<1000) 03/25/20 01:03 U Benzodiazepines Scrn Negative (NEG=<200) 03/25/20 01:03 Urine Cocaine Screen Positive (NEG=<300) 03/25/20 01:03 U Marijuana (THC) Screen Negative (NEG=<50) 03/25/20 01:03 Ethyl Alcohol mg/dL < 3 mg/dL (0-19.9) 03/25/20 00:57 Cryptosporid parvum Ag Negative (NEGATIVE) 03/28/20 07:54 Giardia lamblia Ag Negative (NEGATIVE) 03/28/20 07:54 Plan (1) H. pylori infection: Status: Acute (2) RLL pneumonia: Status: Acute Qualifiers: Pneumonia type: due to unspecified organism Qualified Code(s): J18.9 - Pneumonia, unspecified organism (3) Acute hypokalemia: Status: Acute Plan: POTASSIUM AND MAGNESIUM PROTOCOLS (4) Acute on chronic renal failure: Status: Acute Qualifiers: Acute renal failure type: unspecified Chronic kidney disease stage: unspecified stage Qualified Code(s): N17.9 - Acute kidney failure, unspecified; N18.9 - Chronic kidney disease, unspecified Plan: CONTINUE IV FLUIDS (5) Hypertensive urgency: Status: Acute Plan: 1/2 NS AT 80ML/HR, THE POTASSIUM AND MAGNESIUM PROTOCOLS, LOPRESSOR 50MG PO BID,CARDIZEM CD 180MG PO DAILY, CATAPRES 0.3MG/HR TD PATCH, MORPHINE 2MG IV Q8H PRN, AND ZOFRAN 4MG IV Q8H PRN. (6) Hypernatremia: Status: Acute Plan: 1/2NS AT 80 ML/HR (7) Hypokalemia: Status: Acute (8) Acute GI bleeding: Status: Acute (9) Nausea and vomiting: Status: Acute Qualifiers: Vomiting Intractability: non-intractable Vomiting type: unspecified Qu alified Code(s): R11.2 - Nausea with vomiting, unspecified Plan: OBTAIN ABDOMEN/PELVIS CT IN AM
[2020-03-28] MEDS: COLACE CAP 100 MG PO SCH (21:09)
[2020-03-29 06:14] LABS: BASOPHILS % (AUTO) 0.5 % (0.2-1.0); EOSINOPHILS # (AUTO) 0.7 x10^3/uL (0.0-0.2); EOSINOPHILS % (AUTO) 8.5 % (0.9-2.9); LYMPHOCYTES # (AUTO) 1.6 X10^3/uL (1.3-2.9); LYMPHOCYTES % (AUTO) 18.2 % (21.0-51.0); MEAN CORPUSCULAR HEMOGLOBIN 32.1 pg (27.0-34.0); MEAN CORPUSCULAR HGB CONC 34.2 g/dL (33.0-35.0); MEAN PLATELET VOLUME 8.8 fL (7.4-11.0); MONOCYTES # (AUTO) 0.9 x10^3/uL (0.3-0.8); MONOCYTES % (AUTO) 10.7 % (0.0-13.0); NEUTROPHILS # (AUTO) 5.3 x10^3/uL (2.2-4.8); NEUTROPHILS % (AUTO) 62.1 % (42.0-75.0); PLATELET COUNT 260 X10^3/uL (150.0-450.0); RED BLOOD COUNT 4.05 X10^6/uL (4.7-6.0); RED CELL DISTRIBUTION WIDTH 14.1 % (11.6-16.5); WHITE BLOOD COUNT 8.6 X10^3/uL (3.6-10.0)
[2020-03-29 06:33] LABS: ALANINE AMINOTRANSFERASE 24 Units/L (12-78); ALBUMIN 1.4 g/dL (3.4-5.0); ALKALINE PHOSPHATASE 56 Units/L (46-116); ASPARTATE AMINO TRANSFERASE 15 Units/L (15-37); BLOOD UREA NITROGEN 14 mg/dL (7-18); CALCIUM 7.9 mg/dL (8.5-10.1); CHLORIDE 109 mmol/L (98-107); SODIUM 139 mmol/L (136-145); TOTAL PROTEIN 4.8 g/dL (6.4-8.2); eGFR NON BLACK RACES 32 (>60)
--- NOTE | 2020-03-29 06:43 | RAD ---
HISTORYSOBSTUDYCHEST, 1 VIEWCOMPARISONMay 2019TECHNIQUEPortable chest x-rayFINDINGSThe streaky airspace disease in the right lower lobe is improving, though not fully resolved at this stage. There is mild elevation of the right diaphragm which is unchanged. Marginal blunting of the costophrenic sulci is improved in the interim.IMPRESSIONImproved aeration of the right lower lobe, indicating resolving infiltrate or atelectasis. Improved blunting of the costophrenic sulci associated with previously noted trace pleural effusions on CT exam of March 28.Electronically signed by: SHELBY MURILLO (March 29, 2020 06:42:09)
[2020-03-29] MEDS: DUONEB 0.5 MG/3 MG (3 mL) NEB SCH ×4 (08:19→21:15)
[2020-03-29] MEDS: LEVAQUIN PREMIX IV 500 MG 500 MG/100 ML BAG IV SCH (08:43)
[2020-03-29] MEDS: K-RIDER 10 MEQ/NS 100 ML 10 MEQ/100 ML BAG IV SCH (08:50)
[2020-03-29] MEDS: AMOXIL CAP 500 MG PO SCH ×2 (08:50→20:34)
[2020-03-29] MEDS: PROTONIX TAB 40 MG PO SCH ×2 (08:50→20:35)
[2020-03-29] MEDS: CARDIZEM CD 180 MG 24-HR PO SCH (08:50)
[2020-03-29] MEDS: LOPRESSOR TAB 50 MG PO SCH ×2 (08:51→20:35)
[2020-03-29] MEDS: MILK OF MAGNESIA PO SCH ×2 (08:51→20:35)
--- NOTE | 2020-03-29 11:31 | PCM.PROG ---
Progress Note Progress Note for Day of Date of Exam: 03/29/20 Subjective Subjective: Patient is seen at bedside, no overnight events. He reports doing better. He is admitted for abdominal pain, hypertensive urgency, hypokalemia and GI bleed. He is tolerating diet. He reports still feeling dizzy when he ambulates. He states breathing is better, has been using IS. Labs: K 3.6 Cr trending down 2.30 CXR: improved aeration of RLL COVID negative Plan: continue H Pylori treatment, continue gentle hydration, monitor AM labs. Continue using IS, ambulate TID. Monitor BP. Past Medical Family Social History Past Med/Fam/Surg Hx: No changes since H&P Allergies: Allergies No Known Drug Allergies Allergy (Verified 11/23/19 16:59) Review of Systems ROS: No change since H&P Vital Signs and I&O's Vital Signs: Temperature 98.9 F Pulse Rate [Left Brachial] 61 Pulse Rate [Right Brachial] 61 Pulse Rate [Apical] 97 Pulse Rate 62 Respiratory Rate 18 Blood Pressure [Right Arm] 176/92 Blood Pressure [Left Arm] 175/91 Blood Pressure 220/122 O2 Sat by Pulse Oximetry 96 Intake and Output: Intake & Output 03/26/20 03/27/20 03/28/20 03/29/20 23:59 23:59 23:59 23:59 Intake Total 2823 / 2823 2030 / 2030 1460 / 1460 1204 / 1204 Output Total 975 / 975 1400 / 1400 800 / 800 Balance 2823 / 2823 1055 / 1055 60 / 60 404 / 404 Physical Exam Oriented: Normal Eyes: Normal Ear: Normal Nose: Normal Throat: Normal Respiratory: Generalized and Diminished Cardiovascular: Normal; negative S3, S4 and Murmur : Normal Auscultation: Bowel Sounds: Normal Tenderness: Normal Skin: Normal Musculoskeletal: Normal Psychiatric: Normal Mood Description: Calm Affect: Normal Speech Pattern: Clear and Appropriate Laboratory and Diagnostics Result Diagrams: 03/29/20 05:08 03/29/20 05:08 Labs: 03/28/20 07:54 Stool Stool Culture - Preliminary 03/28/20 07:54 Stool - Final Laboratory WBC 8.6 X10^3/uL (3.6-10.0) 03/29/20 05:08 RBC 4.05 X10^6/uL (4.7-6.0) L 03/29/20 05:08 Hgb 13.0 g/dL (13.5-18.0) L 03/29/20 05:08 Hct 38.0 % (42.0-54.0) L 03/29/20 05:08 MCV 94.0 fL (80.0-100.0) 03/29/20 05:08 MCH 32.1 pg (27.0-34.0) 03/29/20 05:08 MCHC 34.2 g/dL (33.0-35.0) 03/29/20 05:08 RDW 14.1 % (11.6-16.5) 03/29/20 05:08 Plt Count 260 X10^3/uL (150.0-450.0) 03/29/20 05:08 MPV 8.8 fL (7.4-11.0) 03/29/20 05:08 Neut % (Auto) 62.1 % (42.0-75.0) 03/29/20 05:08 Lymph % (Auto) 18.2 % (21.0-51.0) L 03/29/20 05:08 [place] % (Auto) 10.7 % (0.0-13.0) 03/29/20 05:08 Eos % (Auto) 8.5 % (0.9-2.9) H 03/29/20 05:08 Baso % (Auto) 0.5 % (0.2-1.0) 03/29/20 05:08 Neut # (Auto) 5.3 x10^3/uL (2.2-4.8) H 03/29/20 05:08 Lymph # (Auto) 1.6 X10^3/uL (1.3-2.9) 03/29/20 05:08 [place] # (Auto) 0.9 x10^3/uL (0.3-0.8) H 03/29/20 05:08 Eos # (Auto) 0.7 x10^3/uL (0.0-0.2) H 03/29/20 05:08 Baso # (Auto) 0.0 X10^3/uL (0.0-0.1) 03/29/20 05:08 Absolute Nucleated RBC 0.0 /100WBC 03/29/20 05:08 Sodium 139 mmol/L (136-145) 03/29/20 05:08 Corrected Sodium TNP 03/29/20 05:08 Potassium 3.6 mmol/L (3.5-5.1) 03/29/20 05:08 Chloride 109 mmol/L (98-107) H 03/29/20 05:08 Carbon Dioxide 23.0 mmol/L (21-32) 03/29/20 05:08 BUN 14 mg/dL (7-18) 03/29/20 05:08 Creatinine 2.30 mg/dL (0.70-1.30) H 03/29/20 05:08 Est GFR (MDRD) Af Amer 39 (>60) L 03/29/20 05:08 Est GFR (MDRD) Non-Af 32 (>60) L 03/29/20 05:08 Glucose 106 mg/dL (65-99) H 03/29/20 05:08 Calcium 7.9 mg/dL (8.5-10.1) L 03/29/20 05:08 Corrected Calcium 10.0 mg/dL (8.5-10.1) 03/29/20 05:08 Magnesium 2.3 mg/dL (1.7-2.9) 03/28/20 04:11 Total Bilirubin 0.20 mg/dL (0.2-1.0) 03/29/20 05:08 AST 15 Units/L (15-37) 03/29/20 05:08 ALT 24 Units/L (12-78) 03/29/20 05:08 Alkaline Phosphatase 56 Units/L (46-116) 03/29/20 05:08 Creatine Kinase 184 Units/L (39-308) 03/27/20 04:19 CK-MB (CK-2) 1.9 ng/mL (0-4.0) 03/27/20 04:19 CK/CKMB % Calc 1.0 % (<4) 03/27/20 04:19 Troponin I 0.03 ng/mL (0-1.5) 03/27/20 04:19 Total Protein 4.8 g/dL (6.4-8.2) L 03/29/20 05:08 Albumin 1.4 g/dL (3.4-5.0) L 03/29/20 05:08 Globulin 3.4 g/dL (2.5-4.5) 03/29/20 05:08 Albumin/Globulin Ratio 0.4 Ratio (1.1-2.1) L 03/29/20 05:08 Amylase 45 Units/L (25-115) 03/27/20 04:19 Lipase 149 Units/L (73-393) 03/27/20 04:19 Specimen Type Clean catch urine 03/25/20 01:03 Urine Color Yellow (YELLOW) 03/25/20 01:03 Urine Appearance Clear (CLEAR) 03/25/20 01:03 Urine pH 7.0 (5.0 - 8.0) 03/25/20 01:03 Ur Specific [place] 1.015 (1.000-1.030) 03/25/20 01:03 Urine Protein 4+ (NEGATIVE) 03/25/20 01:03 Urine Glucose (UA) 2+ (NEGATIVE) 03/25/20 01:03 Urine Ketones 1+ (NEGATIVE) 03/25/20 01:03 Urine Occult Blood 3+ (NEGATIVE) 03/25/20 01:03 Urine Nitrite Negative (NEGATIVE) 03/25/20 01:03 Urine Bilirubin Negative (NEGATIVE) 03/25/20 01:03 Urine Urobilinogen Normal (NORMAL) 03/25/20 01:03 Ur Leukocyte Esterase Negative (NEGATIVE) 03/25/20 01:03 Urine RBC 3-5 /HPF (0-3) A 03/25/20 01:03 Urine WBC None seen /HPF (0-5) 03/25/20 01:03 Ur Squamous Epith Cells Few /HPF (NEGATIVE) 03/25/20 01:03 Urine Bacteria Negative /HPF (NEGATIVE) 03/25/20 01:03 Other Casts Few /LPF (NEGATIVE) 03/25/20 01:03 Ur Culture Indicated? No/not indicated 03/25/20 01:03 Stool Description 300g,brown,unformed 03/28/20 07:54 Stool Description 300g,brown,unformed' 03/28/20 07:54 Stl Occult Blood (IFOB) Negative (NEGATIVE) 03/28/20 07:54 Stool for White Cells Positive (NEGATIVE) A 03/28/20 07:54 Stl C. diff Tox B Gene Negative (NEGATIVE) 03/28/20 07:54 Stl C. diff 027-NAP1-BI Negative (NEGATIVE) 03/28/20 07:54 Stool H. pylori Ag Positive (NEGATIVE) A 03/28/20 07:54 Urine Opiates Screen Negative (NEG=<300) 03/25/20 01:03 Urine Methadone Screen Negative (NEG=<300) 03/25/20 01:03 Ur Barbiturates Screen Negative (NEG=<200) 03/25/20 01:03 Ur Phencyclidine Scrn Negative (NEG=<25) 03/25/20 01:03 Ur Amphetamines Screen Negative (NEG=<1000) 03/25/20 01:03 U Benzodiazepines Scrn Negative (NEG=<200) 03/25/20 01:03 Urine Cocaine Screen Positive (NEG=<300) 03/25/20 01:03 U Marijuana (THC) Screen Negative (NEG=<50) 03/25/20 01:03 Ethyl Alcohol mg/dL < 3 mg/dL (0-19.9) 03/25/20 00:57 Cryptosporid parvum Ag Negative (NEGATIVE) 03/28/20 07:54 Giardia lamblia Ag Negative (NEGATIVE) 03/28/20 07:54 SARS-CoV-2 (PCR) Negative (NEGATIVE) 03/28/20 11:16 Plan (1) H. pylori infection: Status: Acute (2) RLL pneumonia: Status: Acute Qualifiers: Pneumonia type: due to unspecified organism Qualified Code(s): J18.9 - Pneumonia, unspecified organism (3) Acute hypokalemia: Status: Acute (4) Acute on chronic renal failure: Status: Acute Qualifiers: Acute renal failure type: unspecified Chronic kidney disease stage: unspecified stage Qualified Code(s): N17.9 - Acute kidney failure, unspecified; N18.9 - Chronic kidney disease, unspecified (5) Hypertensive urgency: Status: Acute (6) Hypernatremia: Status: Acute (7) Acute GI bleeding: Status: Acute (8) Nausea and vomiting: Status: Acute Qualifiers: Vomiting Intractability: non-intractable Vomiting type: unspecified Qualified Code(s): R11.2 - Nausea with vomiting, unspecified
[2020-03-29] MEDS: NS 1/2 + KCL 20 MEQ/L 1,000 ML IV SCH (18:06)
[2020-03-29] MEDS: COLACE CAP 100 MG PO SCH (20:34)
[2020-03-29] MEDS: APRESOLINE INJ 20 MG VIAL IVP PRN (22:15)
[2020-03-30] MEDS: NS 1/2 + KCL 20 MEQ/L 1,000 ML IV SCH (01:12)
[2020-03-30] MEDS: APRESOLINE INJ 20 MG VIAL IVP PRN ×3 (03:38→15:39)
[2020-03-30] MEDS ORDERED: CATAPRES TAB 0.1 MG PO ONE (04:50)
[2020-03-30] MEDS ORDERED: CATAPRES TAB 0.1 MG ONE (04:52)
[2020-03-30 06:09] LABS: ALANINE AMINOTRANSFERASE 24 Units/L (12-78); ALBUMIN 1.5 g/dL (3.4-5.0); ALKALINE PHOSPHATASE 64 Units/L (46-116); ASPARTATE AMINO TRANSFERASE 18 Units/L (15-37); BLOOD UREA NITROGEN 13 mg/dL (7-18); CALCIUM 8.2 mg/dL (8.5-10.1); CARBON DIOXIDE 21.4 mmol/L (21-32); CHLORIDE 109 mmol/L (98-107); COR CA(FOR HYPOALB) 10.2 mg/dL (8.5-10.1); CREATININE 2.02 mg/dL (0.70-1.30); SODIUM 140 mmol/L (136-145); TOTAL PROTEIN 5.4 g/dL (6.4-8.2); eGFR NON BLACK RACES 38 (>60)
[2020-03-30 06:18] LABS: BASOPHILS # (AUTO) 0.1 X10^3/uL (0.0-0.1); BASOPHILS % (AUTO) 0.5 % (0.2-1.0); EOSINOPHILS # (AUTO) 0.7 x10^3/uL (0.0-0.2); EOSINOPHILS % (AUTO) 6.6 % (0.9-2.9); HEMATOCRIT 42.1 % (42.0-54.0); HEMOGLOBIN 14.3 g/dL (13.5-18.0); LYMPHOCYTES # (AUTO) 1.5 X10^3/uL (1.3-2.9); LYMPHOCYTES % (AUTO) 13.5 % (21.0-51.0); MEAN CORPUSCULAR HEMOGLOBIN 31.7 pg (27.0-34.0); MEAN CORPUSCULAR HGB CONC 33.9 g/dL (33.0-35.0); MEAN CORPUSCULAR VOLUME 93.5 fL (80.0-100.0); MEAN PLATELET VOLUME 9.5 fL (7.4-11.0); MONOCYTES % (AUTO) 8.4 % (0.0-13.0); PLATELET COUNT 308 X10^3/uL (150.0-450.0); RED CELL DISTRIBUTION WIDTH 14.4 % (11.6-16.5); WHITE BLOOD COUNT 11.3 X10^3/uL (3.6-10.0)
[2020-03-30] MEDS: DUONEB 0.5 MG/3 MG (3 mL) NEB SCH ×4 (08:31→20:20)
[2020-03-30] MEDS: MILK OF MAGNESIA PO SCH (08:32)
[2020-03-30] MEDS: AMOXIL CAP 500 MG PO SCH ×2 (08:33→20:48)
[2020-03-30] MEDS: PROTONIX TAB 40 MG PO SCH ×2 (08:33→20:46)
[2020-03-30] MEDS: CARDIZEM CD 180 MG 24-HR PO SCH (08:33)
[2020-03-30] MEDS: LOPRESSOR TAB 50 MG PO SCH (08:33)
[2020-03-30] MEDS: LEVAQUIN PREMIX IV 500 MG 500 MG/100 ML BAG IV SCH (08:34)
[2020-03-30] MEDS ORDERED: HYDROCHLOROTHIAZIDE 12.5 MG CAP PO SCH (09:00)
[2020-03-30] MEDS: ZOFRAN INJ 4 MG VIAL IVP PRN (09:14)
[2020-03-30] MEDS: APRESOLINE TAB 25 MG PO SCH ×3 (09:36→20:47)
--- NOTE | 2020-03-30 10:03 | PCM.PROG ---
Progress Note Progress Note for Day of Date of Exam: 03/30/20 Subjective Subjective: Patient seen at bedside, BP elevated overnight. He received a dose of IV hydralazine and clonidine. This morning patient is having nausea and vomiting green liquid. He ate pizza last night. He states he woke up feeling sick. He reports mild abdominal pain, last BM yesterday. Labs: K-3.4 Cr:2.02 WBC:11.3 Plan: discussed with patient about his meals, will start full liquids today as patient as been vomiting. Continue antibiotics and BP medications, hydralazine 25 mg BID added. If unable to take PO, IV hydralazine prn. Monitor AM labs and vitals. Continue IS, ambulate TID. Past Medical Family Social History Past Med/Fam/Surg Hx: No changes since H&P Allergies: Allergies No Known Drug Allergies Allergy (Verified 11/23/19 16:59) Review of Systems ROS: No change since H&P Vital Signs and I&O's Vital Signs: Temperature 98.5 F Pulse Rate [Left Brachial] 70 Pulse Rate [Right Brachial] 61 Pulse Rate [Apical] 97 Pulse Rate 86 Respiratory Rate 20 Blood Pressure [Right Arm] 205/98 Blood Pressure [Left Arm] 175/91 Blood Pressure 220/122 O2 Sat by Pulse Oximetry 93 Intake and Output: Intake & Output 03/27/20 03/28/20 03/29/20 03/30/20 23:59 23:59 23:59 23:59 Intake Total 2029 / 2029 1460 / 1460 3335 / 3335 1040 / 1040 Output Total 975 / 975 1400 / 1400 1850 / 1850 Balance 1055 / 1055 60 / 60 1485 / 1485 1040 / 1040 Physical Exam Oriented: Normal Eyes: Normal Ear: Normal Nose: Normal Throat: Normal Respiratory: Normal Cardiovascular: Tachycardia; negative S3, S4 and Murmur Auscultation: Bowel Sounds: Normal Tenderness: Epigastric and Mild Skin: Normal Musculoskeletal: Normal Psychiatric: Normal Mood Description: Calm Affect: Normal Speech Pattern: Clear and Appropriate Laboratory and Diagnostics Result Diagrams: 03/30/20 05:20 03/30/20 05:20 Labs: 03/28/20 07:54 Stool Stool Culture - Preliminary 03/28/20 07:54 Stool - Final Laboratory WBC 11.3 X10^3/uL (3.6-10.0) H 03/30/20 05:20 RBC 4.50 X10^6/uL (4.7-6.0) L 03/30/20 05:20 Hgb 14.3 g/dL (13.5-18.0) 03/30/20 05:20 Hct 42.1 % (42.0-54.0) 03/30/20 05:20 MCV 93.5 fL (80.0-100.0) 03/30/20 05:20 MCH 31.7 pg (27.0-34.0) 03/30/20 05:20 MCHC 33.9 g/dL (33.0-35.0) 03/30/20 05:20 RDW 14.4 % (11.6-16.5) 03/30/20 05:20 Plt Count 308 X10^3/uL (150.0-450.0) 03/30/20 05:20 MPV 9.5 fL (7.4-11.0) 03/30/20 05:20 Neut % (Auto) 71.0 % (42.0-75.0) 03/30/20 05:20 Lymph % (Auto) 13.5 % (21.0-51.0) L 03/30/20 05:20 [place] % (Auto) 8.4 % (0.0-13.0) 03/30/20 05:20 Eos % (Auto) 6.6 % (0.9-2.9) H 03/30/20 05:20 Baso % (Auto) 0.5 % (0.2-1.0) 03/30/20 05:20 Neut # (Auto) 8.0 x10^3/uL (2.2-4.8) H 03/30/20 05:20 Lymph # (Auto) 1.5 X10^3/uL (1.3-2.9) 03/30/20 05:20 [place] # (Auto) 1.0 x10^3/uL (0.3-0.8) H 03/30/20 05:20 Eos # (Auto) 0.7 x10^3/uL (0.0-0.2) H 03/30/20 05:20 Baso # (Auto) 0.1 X10^3/uL (0.0-0.1) 03/30/20 05:20 Absolute Nucleated RBC 0.1 /100WBC 03/30/20 05:20 Sodium 140 mmol/L (136-145) 03/30/20 05:20 Corrected Sodium TNP 03/30/20 05:20 Potassium 3.4 mmol/L (3.5-5.1) L 03/30/20 05:20 Chloride 109 mmol/L (98-107) H 03/30/20 05:20 Carbon Dioxide 21.4 mmol/L (21-32) 03/30/20 05:20 BUN 13 mg/dL (7-18) 03/30/20 05:20 Creatinine 2.02 mg/dL (0.70-1.30) H 03/30/20 05:20 Est GFR (MDRD) Af Amer 46 (>60) L 03/30/20 05:20 Est GFR (MDRD) Non-Af 38 (>60) L 03/30/20 05:20 Glucose 93 mg/dL (65-99) 03/30/20 05:20 Calcium 8.2 mg/dL (8.5-10.1) L 03/30/20 05:20 Corrected Calcium 10.2 mg/dL (8.5-10.1) H 03/30/20 05:20 Magnesium 2.3 mg/dL (1.7-2.9) 03/28/20 04:11 Total Bilirubin 0.20 mg/dL (0.2-1.0) 03/30/20 05:20 AST 18 Units/L (15-37) 03/30/20 05:20 ALT 24 Units/L (12-78) 03/30/20 05:20 Alkaline Phosphatase 64 Units/L (46-116) 03/30/20 05:20 Creatine Kinase 184 Units/L (39-308) 03/27/20 04:19 CK-MB (CK-2) 1.9 ng/mL (0-4.0) 03/27/20 04:19 CK/CKMB % Calc 1.0 % (<4) 03/27/20 04:19 Troponin I 0.03 ng/mL (0-1.5) 03/27/20 04:19 Total Protein 5.4 g/dL (6.4-8.2) L 03/30/20 05:20 Albumin 1.5 g/dL (3.4-5.0) L 03/30/20 05:20 Globulin 3.9 g/dL (2.5-4.5) 03/30/20 05:20 Albumin/Globulin Ratio 0.4 Ratio (1.1-2.1) L 03/30/20 05:20 Amylase 45 Units/L (25-115) 03/27/20 04:19 Lipase 149 Units/L (73-393) 03/27/20 04:19 Specimen Type Clean catch urine 03/25/20 01:03 Urine Color Yellow (YELLOW) 03/25/20 01:03 Urine Appearance Clear (CLEAR) 03/25/20 01:03 Urine pH 7.0 (5.0 - 8.0) 03/25/20 01:03 Ur Specific [place] 1.015 (1.000-1.030) 03/25/20 01:03 Urine Protein 4+ (NEGATIVE) 03/25/20 01:03 Urine Glucose (UA) 2+ (NEGATIVE) 03/25/20 01:03 Urine Ketones 1+ (NEGATIVE) 03/25/20 01:03 Urine Occult Blood 3+ (NEGATIVE) 03/25/20 01:03 Urine Nitrite Negative (NEGATIVE) 03/25/20 01:03 Urine Bilirubin Negative (NEGATIVE) 03/25/20 01:03 Urine Urobilinogen Normal (NORMAL) 03/25/20 01:03 Ur Leukocyte Esterase Negative (NEGATIVE) 03/25/20 01:03 Urine RBC 3-5 /HPF (0-3) A 03/25/20 01:03 Urine WBC None seen /HPF (0-5) 03/25/20 01:03 Ur Squamous Epith Cells Few /HPF (NEGATIVE) 03/25/20 01:03 Urine Bacteria Negative /HPF (NEGATIVE) 03/25/20 01:03 Other Casts Few /LPF (NEGATIVE) 03/25/20 01:03 Ur Culture Indicated? No/not indicated 03/25/20 01:03 Stool Description 300g,brown,unformed 03/28/20 07:54 Stool Description 300g,brown,unformed' 03/28/20 07:54 Stl Occult Blood (IFOB) Negative (NEGATIVE) 03/28/20 07:54 Stool for White Cells Positive (NEGATIVE) A 03/28/20 07:54 Stl C. diff Tox B Gene Negative (NEGATIVE) 03/28/20 07:54 Stl C. diff [id number] Negative (NEGATIVE) 03/28/20 07:54 Stool H. pylori Ag Positive (NEGATIVE) A 03/28/20 07:54 Urine Opiates Screen Negative (NEG=<300) 03/25/20 01:03 Urine Methadone Screen Negative (NEG=<300) 03/25/20 01:03 Ur Barbiturates Screen Negative (NEG=<200) 03/25/20 01:03 Ur Phencyclidine Scrn Negative (NEG=<25) 03/25/20 01:03 Ur Amphetamines Screen Negative (NEG=<1000) 03/25/20 01:03 U Benzodiazepines Scrn Negative (NEG=<200) 03/25/20 01:03 Urine Cocaine Screen Positive (NEG=<300) 03/25/20 01:03 U Marijuana (THC) Screen Negative (NEG=<50) 03/25/20 01:03 Ethyl Alcohol mg/dL < 3 mg/dL (0-19.9) 03/25/20 00:57 Cryptosporid parvum Ag Negative (NEGATIVE) 03/28/20 07:54 Giardia lamblia Ag Negative (NEGATIVE) 03/28/20 07:54 SARS-CoV-2 (PCR) Negative (NEGATIVE) 03/28/20 11:16 Plan (1) H. pylori infection: Status: Acute (2) RLL pneumonia: Status: Acute Qualifiers: Pneumonia type: due to unspecified organism Qualified Code(s): J18.9 - Pneumonia, unspecified organism (3) Acute hypokalemia: Status: Acute Plan: POTASSIUM AND MAGNESIUM PROTOCOLS (4) Acute on chronic renal failure: Status: Acute Qualifiers: Acute renal failure type: unspecified Chronic kidney disease stage: unspecified stage Qualified Code(s): N17.9 - Acute kidney failure, unspecified; N18.9 - Chronic kidney disease, unspecified Plan: CONTINUE IV FLUIDS (5) Hypertensive urgency: Status: Acute Plan: 1/2 NS AT 80ML/HR, THE POTASSIUM AND MAGNESIUM PROTOCOLS, LOPRESSOR 50MG PO BID,CARDIZEM CD 180MG PO DAILY, CATAPRES 0.3MG/HR TD PATCH, MORPHINE 2MG IV Q8H PRN, AND ZOFRAN 4MG IV Q8H PRN. (6) Hypernatremia: Status: Acute Plan: 1/2NS AT 80 ML/HR (7) Acute GI bleeding: Status: Acute (8) Nausea and vomiting: Status: Acute Qualifiers: Vomiting Intractability: non-intractable Vomiting type: unspecified Qualified Code(s): R11.2 - Nausea with vomiting, unspecified Plan: OBTAIN ABDOMEN/PELVIS CT IN AM
[2020-03-30] MEDS: K-RIDER 10 MEQ/NS 100 ML 10 MEQ/100 ML BAG IV SCH (10:04)
[2020-03-30] MEDS: PHENERGAN INJ 25 MG IM PRN (14:09)
[2020-03-30] MEDS ORDERED: CATAPRES TAB 0.2 MG PO ONE (17:10)
[2020-03-30] MEDS: HYDROCHLOROTHIAZIDE 25 MG TAB PO SCH (20:47)
[2020-03-30] MEDS: COLACE CAP 100 MG PO SCH (20:48)
[2020-03-31 05:29] LABS: BASOPHILS # (AUTO) 0.1 X10^3/uL (0.0-0.1); BASOPHILS % (AUTO) 0.7 % (0.2-1.0); EOSINOPHILS # (AUTO) 0.3 x10^3/uL (0.0-0.2); EOSINOPHILS % (AUTO) 2.3 % (0.9-2.9); HEMATOCRIT 43.5 % (42.0-54.0); HEMOGLOBIN 14.7 g/dL (13.5-18.0); LYMPHOCYTES # (AUTO) 1.5 X10^3/uL (1.3-2.9); LYMPHOCYTES % (AUTO) 13.2 % (21.0-51.0); MEAN CORPUSCULAR HEMOGLOBIN 31.5 pg (27.0-34.0); MEAN CORPUSCULAR HGB CONC 33.8 g/dL (33.0-35.0); MEAN CORPUSCULAR VOLUME 93.1 fL (80.0-100.0); MEAN PLATELET VOLUME 9.6 fL (7.4-11.0); MONOCYTES # (AUTO) 0.9 x10^3/uL (0.3-0.8); MONOCYTES % (AUTO) 8.1 % (0.0-13.0); NEUTROPHILS # (AUTO) 8.8 x10^3/uL (2.2-4.8); NEUTROPHILS % (AUTO) 75.7 % (42.0-75.0); PLATELET COUNT 325 X10^3/uL (150.0-450.0); RED BLOOD COUNT 4.67 X10^6/uL (4.7-6.0); RED CELL DISTRIBUTION WIDTH 14.2 % (11.6-16.5); WHITE BLOOD COUNT 11.6 X10^3/uL (3.6-10.0)
[2020-03-31 05:36] LABS: BLOOD UREA NITROGEN 15 mg/dL (7-18); CALCIUM 8.3 mg/dL (8.5-10.1); CARBON DIOXIDE 22.1 mmol/L (21-32); CHLORIDE 107 mmol/L (98-107); CREATININE 2.37 mg/dL (0.70-1.30); SODIUM 139 mmol/L (136-145); eGFR NON BLACK RACES 31 (>60)
--- NOTE | 2020-03-31 06:01 | RAD ---
HISTORYShortness of breathSTUDYCHEST, 1 [id number]/24/2020FINDINGSThe heart is within normal limits in size. The awilda are normal. The lungs are well inflated. Mild residual right basilar infiltrate remains. The remainder of the lung aguirre are clear. No pleural effusions are identified. Bony thorax is unremarkable.IMPRESSIONNo change residual right basilar lung infiltrateElectronically signed by: RANDAL SHELTON (March 31, 2020 06:00:17)
[2020-03-31] MEDS: HYDROCHLOROTHIAZIDE 25 MG TAB PO SCH (08:42)
[2020-03-31] MEDS: APRESOLINE TAB 25 MG PO SCH (08:42)
[2020-03-31] MEDS: PROTONIX TAB 40 MG PO SCH (08:43)
[2020-03-31] MEDS: AMOXIL CAP 500 MG PO SCH (08:43)
[2020-03-31] MEDS: CARDIZEM CD 180 MG 24-HR PO SCH (08:43)
[2020-03-31] MEDS: LEVAQUIN PREMIX IV 500 MG 500 MG/100 ML BAG IV SCH (08:44)
[2020-03-31] MEDS: K-RIDER 10 MEQ/NS 100 ML 10 MEQ/100 ML BAG IV SCH (08:44)
--- NOTE | 2020-03-31 08:54 | PCM.PROG ---
Progress Note - Progress Note for Day of Date of Exam: 03/27/20 - Subjective Subjective: IS BEING TREATED FOR HYPERTENSIVE URGENCY, HYPERNATREMIA, HYPOKALEMIA, GI BLEED, NAUSEA AND VOMITING, AND ACUTE ON CHRONIC RENAL FAILURE. TODAY, HE IS ALERT, LYING IN BED ON MORNING ROUNDS. HE CONTINUES WITH COMPLAINTS OF MILD ABDOMINAL PAIN AND ALSO REPORTS SHORTNESS OF BREATH THIS MORNING. HE DOES HAVE A MILD, NON-PRODUCTIVE COUGH. ON EXAMINATION, HEART IS REGULAR IN RATE AND RHYTHM. BILATERAL LUNGS ARE NOTED WITH DIMINISHED LUNG SOUNDS THROUGHOUT. ABDOMEN IS ROUND, SOFT, AND NOTED WITH DIFFUSE TENDERNESS TO PALPATION. NORMAL BOWEL SOUNDS ARE NOTED IN ALL QUADRANTS. HIS VITALS THIS MORNING ARE: 98.1-64-20-94%-160/93. LABS WERE OBTAINED. ABNORMAL LAB VALUES INCLUDE THE FOLL OWING: RBC 4.14, HGB 13.1, HCT 39.3, POTASSIUM 3.4, CHLORIDE 110, BUN 19, CREATININE 3.12, CALCIUM 7.4, AST 11, TOTAL PROTEIN 4.5, ALBUMIN 1.5. WE OBTAINED AN ABDOMEN/PELVIS CT THIS MORNING. IT REVEALED: 1. Right colon diverticula with minimal adjacent stranding. Diverticulitis is not excluded. 2. Right lower lung opacity and effusion. Developing right lower lung pneumonia is likely. Correlate clinically and follow-up to resolution to exclude underlying lesion 3. Lack of contrast limits sensitivity. Few vascular calcifications, spine DJD. WE HAVE ORDERED STOOL STUDIES, BUT A STOOL HAS NOT BEEN COLLECTED AT THIS TIME. HE IS CURRENTLY RECEIVING NS AT 80ML/HR, THE POPTASSIUM AND MAGNESIUM PROTOCOLS, LOPRESSOR 50MG PO BID, CATAPRES 0.2MG/HR TD PATCH, CARDIZEM CD 180MG PO DAILY, MORPHINE 2MG IV Q8H PRN, ZOFRAN 4MG IV Q8H PRN, AND THE POTASSIUM AND MAGNESIUM PROTOCOLS. TODAY, WE WILL START IV FORTAZ AND IV LEVAQUIN FOR TREATMENT OF PNEUMONIA. OTHERWISE, WE PLAN TO FOLLOW UP WITH AM LABS AND CONTINUE TO MONITOR. - Past Medical Family Social History Past Med/Fam/Surg Hx: No changes since H&P Allergies: Allergies No Known Drug Allergies Allergy (Verified 11/23/19 16:59) - Review of Systems ROS: No change since H&P - Vital Signs and I&O's Vital Signs: Temperature 98.2 F Pulse Rate [Left Brachial] 65 Pulse Rate [Right Brachial] 72 Pulse Rate [Apical] 97 Pulse Rate 74 Respiratory Rate 20 Blood Pressure [Right Arm] 190/116 Blood Pressure [Left Arm] 196/106 Blood Pressure 220/122 O2 Sat by Pulse Oximetry 93 Intake and Output: Intake & Output 03/28/20 03/29/20 03/30/20 03/31/20 11:59 11:59 11:59 11:59 Intake Total 1910 / 1910 2564 / 2564 3171 / 3171 1552 / 1552 Output Total 1425 / 1425 1750 / 1750 1050 / 1050 1550 / 1550 Balance 485 / 485 814 / 814 2121 / 1 - Physical Exam Oriented: Normal Eyes: Normal Ear: Normal Nose: Normal Throat: Normal Respiratory: Normal Cardiovascular: Normal. negative: S3, S4, Murmur : Normal Auscultation: Bowel Sounds: Normal Palpation: Normal Tenderness: Epigastric, Mild Skin: Normal Musculoskeletal: Normal Psychiatric: Normal Mood Description: Calm Affect: Normal Speech Pattern: Clear, Appropriate - Laboratory and Diagnostics Result Diagrams: 03/31/20 04:36 03/31/20 04:36 Labs: 03/28/20 07:54 Stool Stool Culture - Final 03/28/20 07:54 Stool - Final Laboratory WBC 11.6 X10^3/uL (3.6-10.0) H 03/31/20 04:36 RBC 4.67 X10^6/uL (4.7-6.0) L 03/31/20 04:36 Hgb 14.7 g/dL (13.5-18.0) 03/31/20 04:36 Hct 43.5 % (42.0-54.0) 03/31/20 04:36 MCV 93.1 fL (80.0-100.0) 03/31/20 04:36 MCH 31.5 pg (27.0-34.0) 03/31/20 04:36 MCHC 33.8 g/dL (33.0-35.0) 03/31/20 04:36 RDW 14.2 % (11.6-16.5) 03/31/20 04:36 Plt Count 325 X10^3/uL (150.0-450.0) 03/31/20 04:36 MPV 9.6 fL (7.4-11.0) 03/31/20 04:36 Neut % (Auto) 75.7 % (42.0-75.0) H 03/31/20 04:36 Lymph % (Auto) 13.2 % (21.0-51.0) L 03/31/20 04:36 [place] % (Auto) 8.1 % (0.0-13.0) 03/31/20 04:36 Eos % (Auto) 2.3 % (0.9-2.9) 03/31/20 04:36 Baso % (Auto) 0.7 % (0.2-1.0) 03/31/20 04:36 Neut # (Auto) 8.8 x10^3/uL (2.2-4.8) H 03/31/20 04:36 Lymph # (Auto) 1.5 X10^3/uL (1.3-2.9) 03/31/20 04:36 [place] # (Auto) 0.9 x10^3/uL (0.3-0.8) H 03/31/20 04:36 Eos # (Auto) 0.3 x10^3/uL (0.0-0.2) H 03/31/20 04:36 Baso # (Auto) 0.1 X10^3/uL (0.0-0.1) 03/31/20 04:36 Absolute Nucleated RBC 0.1 /100WBC 03/31/20 04:36 Sodium 139 mmol/L (136-145) 03/31/20 04:36 Corrected Sodium TNP 03/31/20 04:36 Potassium 3.3 mmol/L (3.5-5.1) L 03/31/20 04:36 Chloride 107 mmol/L (98-107) 03/31/20 04:36 Carbon Dioxide 22.1 mmol/L (21-32) 03/31/20 04:36 BUN 15 mg/dL (7-18) 03/31/20 04:36 Creatinine 2.37 mg/dL (0.70-1.30) H 03/31/20 04:36 Est GFR (MDRD) Af Amer 38 (>60) L 03/31/20 04:36 Est GFR (MDRD) Non-Af 31 (>60) L 03/31/20 04:36 Glucose 95 mg/dL (65-99) 03/31/20 04:36 Calcium 8.3 mg/dL (8.5-10.1) L 03/31/20 04:36 Corrected Calcium 10.2 mg/dL (8.5-10.1) H 03/30/20 05:20 Magnesium 1.9 mg/dL (1.7-2.9) 03/30/20 05:20 Total Bilirubin 0.20 mg/dL (0.2-1.0) 03/30/20 05:20 AST 18 Units/L (15-37) 03/30/20 05:20 ALT 24 Units/L (12-78) 03/30/20 05:20 Alkaline Phosphatase 64 Units/L (46-116) 03/30/20 05:20 Creatine Kinase 184 Units/L (39-308) 03/27/20 04:19 CK-MB (CK-2) 1.9 ng/mL (0-4.0) 03/27/20 04:19 CK/CKMB % Calc 1.0 % (<4) 03/27/20 04:19 Troponin I 0.03 ng/mL (0-1.5) 03/27/20 04:19 Total Protein 5.4 g/dL (6.4-8.2) L 03/30/20 05:20 Albumin 1.5 g/dL (3.4-5.0) L 03/30/20 05:20 Globulin 3.9 g/dL (2.5-4.5) 03/30/20 05:20 Albumin/Globulin Ratio 0.4 Ratio (1.1-2.1) L 03/30/20 05:20 Amylase 45 Units/L (25-115) 03/27/20 04:19 Lipase 149 Units/L (73-393) 03/27/20 04:19 Specimen Type Clean catch urine 03/25/20 01:03 Urine Color Yellow (YELLOW) 03/25/20 01:03 Urine Appearance Clear (CLEAR) 03/25/20 01:03 Urine pH 7.0 (5.0 - 8.0) 03/25/20 01:03 Ur Specific [place] 1.015 (1.000-1.030) 03/25/20 01:03 Urine Protein 4+ (NEGATIVE) 03/25/20 01:03 Urine Glucose (UA) 2+ (NEGATIVE) 03/25/20 01:03 Urine Ketones 1+ (NEGATIVE) 03/25/20 01:03 Urine Occult Blood 3+ (NEGATIVE) 03/25/20 01:03 Urine Nitrite Negative (NEGATIVE) 03/25/20 01:03 Urine Bilirubin Negative (NEGATIVE) 03/25/20 01:03 Urine Urobilinogen Normal (NORMAL) 03/25/20 01:03 Ur Leukocyte Esterase Negative (NEGATIVE) 03/25/20 01:03 Urine RBC 3-5 /HPF (0-3) A 03/25/20 01:03 Urine WBC None seen /HPF (0-5) 03/25/20 01:03 Ur Squamous Epith Cells Few /HPF (NEGATIVE) 03/25/20 01:03 Urine Bacteria Negative /HPF (NEGATIVE) 03/25/20 01:03 Other Casts Few /LPF (NEGATIVE) 03/25/20 01:03 Ur Culture Indicated? No/not indicated 03/25/20 01:03 Stool Description 300g,brown,unformed 03/28/20 07:54 Stool Description 300g,brown,unformed' 03/28/20 07:54 Stl Occult Blood (IFOB) Negative (NEGATIVE) 03/28/20 07:54 Stool for White Cells Positive (NEGATIVE) A 03/28/20 07:54 Stl C. diff Tox B Gene Negative (NEGATIVE) 03/28/20 07:54 Stl C. diff [id number] Negative (NEGATIVE) 03/28/20 07:54 Stool H. pylori Ag Positive (NEGATIVE) A 03/28/20 07:54 Urine Opiates Screen Negative (NEG=<300) 03/25/20 01:03 Urine Methadone Screen Negative (NEG=<300) 03/25/20 01:03 Ur Barbiturates Screen Negative (NEG=<200) 03/25/20 01:03 Ur Phencyclidine Scrn Negative (NEG=<25) 03/25/20 01:03 Ur Amphetamines Screen Negative (NEG=<1000) 03/25/20 01:03 U Benzodiazepines Scrn Negative (NEG=<200) 03/25/20 01:03 Urine Cocaine Screen Positive (NEG=<300) 03/25/20 01:03 U Marijuana (THC) Screen Negative (NEG=<50) 03/25/20 01:03 Ethyl Alcohol mg/dL < 3 mg/dL (0-19.9) 03/25/20 00:57 Cryptosporid parvum Ag Negative (NEGATIVE) 03/28/20 07:54 Giardia lamblia Ag Negative (NEGATIVE) 03/28/20 07:54 SARS-CoV-2 (PCR) Negative (NEGATIVE) 03/28/20 11:16 - Plan (1) RLL pneumonia Status: Acute Qualifiers: Pneumonia type: due to unspecified organism Plan: IV FORTAZ, IV LEVAQUIN, RESPIRATORY TX, CONTINUE TO MONITOR (2) Hypertensive urgency Status: Acute Plan: 1/2 NS AT 80ML/HR, THE POTASSIUM AND MAGNESIUM PROTOCOLS, LOPRESSOR 50MG PO BID,CARDIZEM CD 180MG PO DAILY, CATAPRES 0.3MG/HR TD PATCH, MORPHINE 2MG IV Q8H PRN, AND ZOFRAN 4MG IV Q8H PRN. (3) Acute on chronic renal failure Status: Acute Qualifiers: Acute renal failure type: unspecified Chronic kidney disease stage: unspecified stage Qualified Code(s): N17.9 - Acute kidney failure, unspecified; N18.9 - Chronic kidney disease, unspecified Plan: CONTINUE IV FLUIDS (4) Hypernatremia Status: Acute Plan: 1/2NS AT 80 ML/HR (5) Acute hypokalemia Status: Acute Plan: POTASSIUM AND MAGNESIUM PROTOCOLS (6) Acute GI bleeding Status: Acute (7) Nausea and vomiting Status: Acute Qualifiers: Vomiting type: unspecified Vomiting Intractability: non-intractable Qualified Code(s): R11.2 - Nausea with vomiting, unspecified
[2020-03-31] MEDS: DUONEB 0.5 MG/3 MG (3 mL) NEB SCH (09:40)
[2020-03-31 12:21] VITALS: BP 186/96
== END 2020-03-31 12:10 | disposition home or self-care (01) | DRG 304 ==
LOC: ER 00:33 → MED/SURG 05:29
PROVIDERS: ADMIT Internal Medicine; ATTEND Internal Medicine
DX: F14.10 Cocaine abuse, uncomplicated; R94.31 Abnormal electrocardiogram [ECG] [EKG]; R10.84 Generalized abdominal pain; E87.1 Hypo-osmolality and hyponatremia; K92.2 Gastrointestinal hemorrhage, unspecified; E87.0 Hyperosmolality and hypernatremia; E87.6 Hypokalemia; J18.9 Pneumonia, unspecified organism; R31.29 Other microscopic hematuria; I16.0 Hypertensive urgency; R94.4 Abnormal results of kidney function studies; N18.9 Chronic kidney disease, unspecified; R11.2 Nausea with vomiting, unspecified; B96.81 Helicobacter pylori [H. pylori] as the cause of diseases classified elsewhere; Z11.59 Encounter for screening for other viral diseases; I48.91 Unspecified atrial fibrillation; N17.8 Other acute kidney failure; F10.10 Alcohol abuse, uncomplicated
CPT/HCPCS: 36415; 71010; 71045; 74022; 74176; 76770; 80048; 80053; 80307; 80320; 81001; 82150; 82270; 82550; 82553; 83630; 83690; 83735; 84132; 84484; 85025; 87045; 87328; 87329; 87338; 87427; 87449; 87493; 87635; 87899; 93005; 94640; 94760; 96365; 96372; 96374; 96375; 99285; A4216; A4222; C9113; J0360; J0713; J1956; J2270; J2405; J2550; J3480; J3490; J7030; J7050; J7620

== ENCOUNTER 2021-07-15 12:18 | Observation (INO) ==
[2021-07-15 12:38] VITALS: BMI 26.6
[2021-07-15] MEDS ORDERED: NS 1000 ML 1,000 ML IV ONE (12:56)
[2021-07-15] MEDS ORDERED: NS 1000 ML 1,000 ML ONE (13:05)
[2021-07-15 13:31] LABS: BASOPHILS # (AUTO) 0.1 X10^3/uL (0.0-0.1); BASOPHILS % (AUTO) 1.1 % (0.2-1.0); EOSINOPHILS % (AUTO) 12.4 % (0.9-2.9); HEMOGLOBIN 12.6 g/dL (13.5-18.0); LYMPHOCYTES % (AUTO) 13.1 % (21.0-51.0); MEAN CORPUSCULAR HEMOGLOBIN 31.4 pg (27.0-34.0); MEAN CORPUSCULAR VOLUME 92.3 fL (80.0-100.0); MEAN PLATELET VOLUME 8.8 fL (7.4-11.0); MONOCYTES # (AUTO) 0.7 x10^3/uL (0.3-0.8); MONOCYTES % (AUTO) 8.6 % (0.0-13.0); NEUTROPHILS % (AUTO) 64.8 % (42.0-75.0); PLATELET COUNT 307 X10^3/uL (150.0-450.0); RED BLOOD COUNT 4.01 X10^6/uL (4.7-6.0); RED CELL DISTRIBUTION WIDTH 13.6 % (11.6-16.5); WHITE BLOOD COUNT 7.7 X10^3/uL (3.6-10.0)
[2021-07-15] MEDS ORDERED: APRESOLINE INJ 20 MG VIAL IVP ONE ×2 (13:32→17:18)
[2021-07-15] MEDS ORDERED: ASPIRIN PO ONE (13:33)
[2021-07-15] MEDS ORDERED: APRESOLINE INJ 20 MG VIAL ONE ×2 (13:35→17:23)
[2021-07-15] MEDS ORDERED: ASPIRIN ONE (13:36)
--- NOTE | 2021-07-15 13:40 | DR.CP ---
HPI Time Seen Time Seen by Provider: 07/15/21 12:37 Complaint Chief Complaint Doctor Comments: 51 y/o male presents with chest pain. States it started last pm. Admits to doing a large amount of cocaine yesterday, it was possibly mixed with another substance. Having sharp chest pain, across the anterior chest, radiates into his back. Worse with moving. Nothing makes it better. Associated with palpitations, shortness of breath. Has a h/o HTN, no ho cardiac disease. Wants to quit cocaine. COVID-19 Coronavirus risk:travel/contact w/high risk person: No Has patient experienced Coronavirus symptoms: No Reviewed Nurses Notes Review: Yes Source History Provided: Patient Mode of Arrival Mode of Arrival: Ambulatory Timing Came on: Gradually Duration Duration: Intermittent How lon Duration: Days Location Location of Chest Pain: Chest Chest Pain Radiation Location: Back Context Onset: At rest Cardiac Risk Factors: Smoker, HTN and Cocaine Quality Quality: Sharp Severity Severity: Severe Modifying Factors Worsens: Movement Impoves: Nothing Associated Signs and Symptoms Associated Signs and Symptoms: Shortness of Breath and Palpitations PMH PMH Past Medical History: Yes Past Medical History: Hypertension Past Surgical History: Yes Surgical History: Unknown Family History Family Medical History: Hypertension Social History Does patient currently use any type of tobacco product: Yes Do you use any recreational Drugs:: Yes (cocaine, regular basis) Travel Risk Coronavirus risk:travel/contact w/high risk person: No Infectious screening Isolation: Standard ROS Review of Systems Constitutional: No Symptoms Reported Eyes: No Symptoms Reported ENTM: No Symptoms Reported Respiratoy: Short of Breath Cardiovascular: Chest Pain and Palpitations Gastrointestinal/Abdominal: No Symptoms Reported Genitourinary: No Symptoms Reported Neurological: No Symptoms Reported Musculoskeletal: No Symptoms Reported Integumentary: No Symptoms Reported Hematologic/Lymphatic: No Symptoms Reported Endocrine: No Symptoms Reported Psychiatric: No Symptoms Reported All Other Systems: Reviewed and Negative PE Vitals Vitals: Temperature 96.8 F Pulse Rate 82 Respiratory Rate 16 Blood Pressure [Right Arm] 223/127 Blood Pressure [Left Arm] 196/106 Blood Pressure 186/93 O2 Sat by Pulse Oximetry 100 General Limitations: No Limitations and Language Barrier General Appearance: Alert and In No Apparent Distress Head Head Exam: Normal Inspection Eyes Eye exam: Normal Appearance and PERRL ENT ENT Exam: Normal Exam Chest Chest Inspection: Normal Inspection; negative Tenderness Respiratory Respiratory Exam: Normal Lung Sounds Bilat; negative Accessory Muscle Use and Respiratory Distress Respiratory Exam: Bilateral: Clear to Auscultation Cardiovascular Cardiovascular Exam: Regular Rate, Normal Rhythm and Normal Heart Sounds Abdominal Exam Abdominal Exam: Normal Inspection and Normal Bowel Sounds; negative Tenderness Extremities Extremities Exam: Normal Inspection and Full ROM; negative Tenderness and Edema Back Back Exam: Normal Inspection and Full ROM Neurologic Neurological Exam: Alert, Oriented X3 and CN II-XII Intact; negative Motor Sensory Deficit Psychiatric Psychiatric Exam: Normal Affect Skin Skin Exam: Warm and Dry MDM Differential Diagnosis Differential Diagnosis: Angina, Aortic Dissection, Chest Wall Pain, Costochondritis, Pancreatitis and Pulmonary Embolus COURSE Treatment Treatment: 51 y/o presents with chest pain. + abuses cocaine, did a large amount yesterday. W/u initiated. Given ASA. Pt was given IV hydralazine, 10 mg , then 20 mg. Pt's chronic kidney status, worse than usual, Cr 5+. Cardiac w/u negative for acute PR. Discussed with his attending, Dr. Guillory, will admit. ROR Labs Reviewed Laboratory Results Reviewed?: Yes Result Diagrams: 07/15/21 13:13 07/15/21 13:13 Laboratory: WBC 7.7 X10^3/uL (3.6-10.0) 07/15/21 13:13 RBC 4.01 X10^6/uL (4.7-6.0) L 07/15/21 13:13 Hgb 12.6 g/dL (13.5-18.0) L 07/15/21 13:13 Hct 37.0 % (42.0-54.0) L 07/15/21 13:13 MCV 92.3 fL (80.0-100.0) 07/15/21 13:13 MCH 31.4 pg (27.0-34.0) 07/15/21 13:13 MCHC 34.0 g/dL (33.0-35.0) 07/15/21 13:13 RDW 13.6 % (11.6-16.5) 07/15/21 13:13 Plt Count 307 X10^3/uL (150.0-450.0) 07/15/21 13:13 MPV 8.8 fL (7.4-11.0) 07/15/21 13:13 Neut % (Auto) 64.8 % (42.0-75.0) 07/15/21 13:13 Lymph % (Auto) 13.1 % (21.0-51.0) L 07/15/21 13:13 [place] % (Auto) 8.6 % (0.0-13.0) 07/15/21 13:13 Eos % (Auto) 12.4 % (0.9-2.9) H 07/15/21 13:13 Baso % (Auto) 1.1 % (0.2-1.0) H 07/15/21 13:13 Neut # (Auto) 5.0 x10^3/uL (2.2-4.8) H 07/15/21 13:13 Lymph # (Auto) 1.0 X10^3/uL (1.3-2.9) L 07/15/21 13:13 [place] # (Auto) 0.7 x10^3/uL (0.3-0.8) 07/15/21 13:13 Eos # (Auto) 1.0 x10^3/uL (0.0-0.2) H 07/15/21 13:13 Baso # (Auto) 0.1 X10^3/uL (0.0-0.1) 07/15/21 13:13 Absolute Nucleated RBC 0.1 /100WBC 07/15/21 13:13 PT 15.8 SECONDS (11.8-14.3) 07/15/21 13:13 INR Target Range - 07/15/21 13:13 INR 1.32 (0.8-1.3) H 07/15/21 13:13 Sodium 141 mmol/L (136-145) 07/15/21 13:13 Corrected Sodium 141 mmol/L (136-145) 07/15/21 13:13 Potassium 3.6 mmol/L (3.5-5.1) 07/15/21 13:13 Chloride 108 mmol/L (98-107) H 07/15/21 13:13 Carbon Dioxide 22.6 mmol/L (21-32) 07/15/21 13:13 BUN 33 mg/dL (7-18) H 07/15/21 13:13 Creatinine 5.14 mg/dL (0.70-1.30) H 07/15/21 13:13 Est GFR (MDRD) Af Amer 15 (>60) L 07/15/21 13:13 Est GFR (MDRD) Non-Af 13 (>60) L 07/15/21 13:13 Glucose 120 mg/dL (65-99) H 07/15/21 13:13 Calcium 8.0 mg/dL (8.5-10.1) L 07/15/21 13:13 Corrected Calcium 9.0 mg/dL (8.5-10.1) 07/15/21 13:13 Total Bilirubin 0.20 mg/dL (0.2-1.0) 07/15/21 13:13 AST 29 Units/L (15-37) 07/15/21 13:13 ALT 39 Units/L (12-78) 07/15/21 13:13 Alkaline Phosphatase 50 Units/L (46-116) 07/15/21 13:13 Creatine Kinase 890 Units/L (39-308) H 07/15/21 13:13 CK-MB (CK-2) 5.9 ng/mL (0-4.0) H* 07/15/21 13:13 CK/CKMB % Calc 0.7 % (<4) 07/15/21 13:13 Troponin I < 0.02 ng/mL (0-1.5) 07/15/21 13:13 Total Protein 6.1 g/dL (6.4-8.2) L 07/15/21 13:13 Albumin 2.7 g/dL (3.4-5.0) L 07/15/21 13:13 Globulin 3.4 g/dL (2.5-4.5) 07/15/21 13:13 Albumin/Globulin Ratio 0.8 Ratio (1.1-2.1) L 07/15/21 13:13 Specimen Type Clean catch urine 07/15/21 17:47 Urine Color Yellow (YELLOW) 07/15/21 17:47 Urine Appearance Clear (CLEAR) 07/15/21 17:47 Urine pH 5.0 (5.0 - 8.0) 07/15/21 17:47 Ur Specific [place] 1.015 (1.000-1.030) 07/15/21 17:47 Urine Protein 4+ (NEGATIVE) 07/15/21 17:47 Urine Glucose (UA) 2+ (NEGATIVE) 07/15/21 17:47 Urine Ketones Negative (NEGATIVE) 07/15/21 17:47 Urine Occult Blood 2+ (NEGATIVE) 07/15/21 17:47 Urine Nitrite Negative (NEGATIVE) 07/15/21 17:47 Urine Bilirubin Negative (NEGATIVE) 07/15/21 17:47 Urine Urobilinogen Normal (NORMAL) 07/15/21 17:47 Ur Leukocyte Esterase Negative (NEGATIVE) 07/15/21 17:47 Urine RBC 3-5 /HPF (0-3) A 07/15/21 17:47 Urine WBC 0-2 /HPF (0-5) 07/15/21 17:47 Ur Squamous Epith Cells Rare /HPF (NEGATIVE) 07/15/21 17:47 Urine Bacteria Trace /HPF (NEGATIVE) 07/15/21 17:47 Ur Culture Indicated? No/not indicated 07/15/21 17:47 Urine Opiates Screen Negative (NEG=<300) 07/15/21 17:47 Urine Methadone Screen Negative (NEG=<300) 07/15/21 17:47 Ur Barbiturates Screen Negative (NEG=<200) 07/15/21 17:47 Ur Phencyclidine Scrn Negative (NEG=<25) 07/15/21 17:47 Ur Amphetamines Screen Negative (NEG=<1000) 07/15/21 17:47 U Benzodiazepines Scrn Negative (NEG=<200) 07/15/21 17:47 Urine Cocaine Screen Positive (NEG=<300) 07/15/21 17:47 U Marijuana (THC) Screen Negative (NEG=<50) 07/15/21 17:47 SARS-CoV-2 (PCR) Negative (NEGATIVE) 07/15/21 17:07 Influenza Type A (PCR) Negative (NEGATIVE) 07/15/21 17:07 Influenza Type B (PCR) Negative (NEGATIVE) 07/15/21 17:07 RSV (PCR) Negative (NEGATIVE) 07/15/21 17:07 XRAY XRAY Interpreted by: Both X-ray Results: No acute abnormalities EKG Rate: 70 Olden: Normal Rhythm: NSR Hypertrophy: LAE and LVH ST: Normal Opioid Opioid Risk Tool Family Hx of Substance Abuse: Alcohol Personal Hx of Substance Abuse: Alcohol Age (Nav box if 16-45): No History of Preadolescent Sexual Abuse: No Psychological Disease: Depression Total: 0 Total Score Risk Category: Low Risk Copyright: Wilber AGEE predicting aberrant behaviors Diagnosis Discharge Problem: Hypertensive urgency, Cocaine abuse Acute on chronic renal failure Qualifiers: Acute renal failure type: unspecified
--- NOTE | 2021-07-15 14:21 | RAD ---
HISTORYCHEST PAIN, PT USED COCAINE THIS WEEK WELL HEROIN, PT THINKS IT MAY HAVE BEEN LACED WITH FENTANYLSTUDYCHEST, 1 VIEWCOMPARISONOctober 2019TECHNIQUEThe chest radiographFINDINGSHeart size and mediastinal contours are normal. Lungs are clear as are the pleural spaces. No free air or pneumothorax. No acute bony abonormality.IMPRESSIONNo acute radiographic abnormalities of the chestElectronically signed by: SHELBY MURILLO (Jul 15, 2021 14:20:07)
[2021-07-15 14:37] LABS: ALANINE AMINOTRANSFERASE 39 Units/L (12-78); ALBUMIN 2.7 g/dL (3.4-5.0); ALKALINE PHOSPHATASE 50 Units/L (46-116); ASPARTATE AMINO TRANSFERASE 29 Units/L (15-37); BLOOD UREA NITROGEN 33 mg/dL (7-18); CARBON DIOXIDE 22.6 mmol/L (21-32); CHLORIDE 108 mmol/L (98-107); CKMB % 0.7 % (<4); COR NA(FOR HYPERGLY) 141 mmol/L (136-145); CREATINE KINASE 890 Units/L (39-308); CREATININE 5.14 mg/dL (0.70-1.30); SODIUM 141 mmol/L (136-145); TOTAL PROTEIN 6.1 g/dL (6.4-8.2); TROPONIN I < 0.02 ng/mL (0-1.5); eGFR NON BLACK RACES 13 (>60)
[2021-07-15 14:50] LABS: CREATINE KINASE MB 5.9 ng/mL (0-4.0)
[2021-07-15 18:01] LABS: BILIRUBIN,URINE NEGATIVE (NEGATIVE); BLOOD/HEMOGLOBIN,URINE 2+ (NEGATIVE); GLUCOSE, URINE 2+ (NEGATIVE); KETONES,URINE NEGATIVE (NEGATIVE); LEUKOCYTE ESTERASE ,URINE NEGATIVE (NEGATIVE); NITRITES,URINE NEGATIVE (NEGATIVE); PROTEIN,URINE 4+ (NEGATIVE); UROBILINOGEN,URINE NORMAL (NORMAL)
[2021-07-15] MEDS ORDERED: ZOFRAN INJ 4 MG VIAL IVP ONE (18:16)
[2021-07-15] MEDS ORDERED: ATIVAN INJ 2 MG VIAL IVP PRN (18:18)
[2021-07-15 18:21] LABS: APPEARANCE,URINE CLEAR (CLEAR); BACTERIA,URINE TRACE /HPF (NEGATIVE); COLOR,URINE YELLOW (YELLOW); SQUAMOUS EPITHELIAL CELL,UR RARE /HPF (NEGATIVE)
[2021-07-15] MEDS ORDERED: ZOFRAN INJ 4 MG VIAL ONE (18:24)
[2021-07-15 20:01] LABS: CKMB % 0.6 % (<4)
[2021-07-15 20:18] LABS: TROPONIN I 0.02 ng/mL (0-1.5)
[2021-07-15] MEDS ORDERED: APRESOLINE TAB 25 MG ONE (20:28)
[2021-07-15] MEDS: D5 1/2 NS 1000 ML 1,000 ML IV SCH (20:32)
[2021-07-15 20:34] LABS: CREATINE KINASE MB 4.6 ng/mL (0-4.0)
[2021-07-15] MEDS: APRESOLINE TAB 25 MG PO SCH (21:19)
[2021-07-15] MEDS ORDERED: APRESOLINE TAB 25 MG PO SCH (22:00)
[2021-07-16] MEDS ORDERED: CATAPRES TAB 0.2 MG PO ONE (01:27)
[2021-07-16] MEDS ORDERED: CATAPRES TAB 0.2 MG ONE (01:28)
[2021-07-16] MEDS ORDERED: D5 1/2 NS 1000 ML 1,000 ML IV ONE (03:52)
[2021-07-16] MEDS: D5 1/2 NS 1000 ML 1,000 ML IV SCH (03:53)
[2021-07-16] MEDS: APRESOLINE TAB 25 MG PO SCH (05:49)
[2021-07-16 07:02] LABS: BASOPHILS # (AUTO) 0.1 X10^3/uL (0.0-0.1); BASOPHILS % (AUTO) 1.1 % (0.2-1.0); EOSINOPHILS # (AUTO) 1.3 x10^3/uL (0.0-0.2); EOSINOPHILS % (AUTO) 18.3 % (0.9-2.9); HEMATOCRIT 34.2 % (42.0-54.0); HEMOGLOBIN 11.6 g/dL (13.5-18.0); LYMPHOCYTES # (AUTO) 1.1 X10^3/uL (1.3-2.9); LYMPHOCYTES % (AUTO) 15.7 % (21.0-51.0); MEAN CORPUSCULAR HEMOGLOBIN 31.5 pg (27.0-34.0); MEAN CORPUSCULAR HGB CONC 33.9 g/dL (33.0-35.0); MEAN CORPUSCULAR VOLUME 92.9 fL (80.0-100.0); MEAN PLATELET VOLUME 8.7 fL (7.4-11.0); MONOCYTES # (AUTO) 0.6 x10^3/uL (0.3-0.8); MONOCYTES % (AUTO) 8.5 % (0.0-13.0); NEUTROPHILS % (AUTO) 56.4 % (42.0-75.0); PLATELET COUNT 281 X10^3/uL (150.0-450.0); RED BLOOD COUNT 3.68 X10^6/uL (4.7-6.0); RED CELL DISTRIBUTION WIDTH 13.8 % (11.6-16.5); WHITE BLOOD COUNT 7.1 X10^3/uL (3.6-10.0)
[2021-07-16 07:10] LABS: ALANINE AMINOTRANSFERASE 26 Units/L (12-78); ALBUMIN 2.3 g/dL (3.4-5.0); ALKALINE PHOSPHATASE 42 Units/L (46-116); ASPARTATE AMINO TRANSFERASE 20 Units/L (15-37); BLOOD UREA NITROGEN 29 mg/dL (7-18); CALCIUM 7.4 mg/dL (8.5-10.1); CARBON DIOXIDE 21.4 mmol/L (21-32); CHLORIDE 111 mmol/L (98-107); COR CA(FOR HYPOALB) 8.8 mg/dL (8.5-10.1); CREATININE 4.39 mg/dL (0.70-1.30); SODIUM 140 mmol/L (136-145); TOTAL PROTEIN 5.3 g/dL (6.4-8.2); eGFR NON BLACK RACES 15 (>60)
[2021-07-16] MEDS ORDERED: MILK OF MAGNESIA PO SCH (09:00)
[2021-07-16] MEDS ORDERED: COLACE CAP 100 MG PO SCH (09:00)
[2021-07-16] MEDS ORDERED: LOVENOX INJ 100 MG SYR SC SCH (09:00)
[2021-07-16] MEDS ORDERED: LOVENOX INJ 100 MG SYR SC ONE (09:13)
[2021-07-16] MEDS ORDERED: CATAPRES TAB 0.1 MG ONE (09:13)
[2021-07-16] MEDS ORDERED: MILK OF MAGNESIA ONE (09:14)
[2021-07-16] MEDS ORDERED: COLACE CAP 100 MG PO ONE (09:14)
[2021-07-16 10:11] VITALS: BP 184/97
--- NOTE | 2021-07-16 10:11 | DR.SSS ---
SHORT STAY SUMMARY Admission Date Date of Admission: 07/15/21 Discharge Date Discharge Date: 07/16/21 Admission Diagnoses Admission Diagnoses: Chest pain Hypertensive urgency Cocaine abuse Discharge Diagnoses Discharge Diagnoses: Chest pain Hypertensive urgency Cocaine abuse Chief Complaint Chief Complaint: Chest pain History of Present Illness History of Present Illness: Pt is a 51 year old male past medical history of Hy pertension, CKD, presenting after having chest pain. He states that he did use cocaine and started feeling chest pain shortly after. He admits to not being compliant with his prescribed medications. Past Medical History Past Medical History: Hypertension and Renal Disease Past Surgical History Surgical History: Unknown Allergies Allergies Allergy/AdvReac Type Severity Reaction Status Date / Time lisinopril Allergy Verified 07/15/21 12:28 Medications Home Medications: lisinopril Allergy (Verified 07/15/21 12:28) CONTINUE taking the following medications clonidine 1 patch TOPICAL WE 07/15/21 [History] Family History Family Medical History: Diabetes Mellitus, Cancer, Coronary Artery Disease and Hypertension Social History Does patient currently use any type of tobacco product: Yes Have you used tobacco products in the last 12 months: Yes Type of Tobacco Use: Cigarettes How many years tobacco product used: 20 Alcohol Use: Occasionally Drug Use: Cocaine and Marijuana Review of Systems Constitutional: No Symptoms Reported Eyes: No Symptoms Reported ENT: No Symptoms Reported Respiratory: No Symptoms Reported Cardiovascular: Chest Pain Gastrointestinal: No Symptoms Reported Genitourinary: No Symptoms Reported Musculoskeletal: No Symptoms Reported Skin: No Symptoms Reported Neurological: No Symptoms Reported Physical Exam Vital Signs: Last Vital Signs Temp 98.1 F 07/16/21 08:00 Pulse 64 07/16/21 08:00 Resp 18 07/16/21 08:00 BP 184/97 07/16/21 08:00 Pulse Ox 98 07/16/21 08:00 Oriented: Normal Eyes: Normal Ear: Normal Nose: Normal Throat: Normal Respiratory: Clear Throughout Cardiovascular: Normal : Normal Auscultation: Bowel Sounds: Normal Palpation: Normal Tenderness: Normal Skin: Normal Musculoskeletal: Normal Psychiatric: Normal Mood Description: Calm Affect: Normal Speech Pattern: Clear Labs Labs: Laboratory Last Values WBC 7.1 X10^3/uL (3.6-10.0) 07/16/21 06:40 RBC 3.68 X10^6/uL (4.7-6.0) L 07/16/21 06:40 Hgb 11.6 g/dL (13.5-18.0) L 07/16/21 06:40 Hct 34.2 % (42.0-54.0) L 07/16/21 06:40 MCV 92.9 fL (80.0-100.0) 07/16/21 06:40 MCH 31.5 pg (27.0-34.0) 07/16/21 06:40 MCHC 33.9 g/dL (33.0-35.0) 07/16/21 06:40 RDW 13.8 % (11.6-16.5) 07/16/21 06:40 Plt Count 281 X10^3/uL (150.0-450.0) 07/16/21 06:40 MPV 8.7 fL (7.4-11.0) 07/16/21 06:40 Neut % (Auto) 56.4 % (42.0-75.0) 07/16/21 06:40 Lymph % (Auto) 15.7 % (21.0-51.0) L 07/16/21 06:40 [place] % (Auto) 8.5 % (0.0-13.0) 07/16/21 06:40 Eos % (Auto) 18.3 % (0.9-2.9) H 07/16/21 06:40 Baso % (Auto) 1.1 % (0.2-1.0) H 07/16/21 06:40 Neut # (Auto) 4.0 x10^3/uL (2.2-4.8) 07/16/21 06:40 Lymph # (Auto) 1.1 X10^3/uL (1.3-2.9) L 07/16/21 06:40 [place] # (Auto) 0.6 x10^3/uL (0.3-0.8) 07/16/21 06:40 Eos # (Auto) 1.3 x10^3/uL (0.0-0.2) H 07/16/21 06:40 Baso # (Auto) 0.1 X10^3/uL (0.0-0.1) 07/16/21 06:40 Absolute Nucleated RBC 0.0 /100WBC 07/16/21 06:40 PT 15.8 SECONDS (11.8-14.3) 07/15/21 13:13 INR Target Range - 07/15/21 13:13 INR 1.32 (0.8-1.3) H 07/15/21 13:13 Sodium 140 mmol/L (136-145) 07/16/21 06:40 Corrected Sodium TNP 07/16/21 06:40 Potassium 3.6 mmol/L (3.5-5.1) 07/16/21 06:40 Chloride 111 mmol/L (98-107) H 07/16/21 06:40 Carbon Dioxide 21.4 mmol/L (21-32) 07/16/21 06:40 BUN 29 mg/dL (7-18) H 07/16/21 06:40 Creatinine 4.39 mg/dL (0.70-1.30) H 07/16/21 06:40 Est GFR (MDRD) Af Amer 19 (>60) L 07/16/21 06:40 Est GFR (MDRD) Non-Af 15 (>60) L 07/16/21 06:40 Glucose 100 mg/dL (65-99) H 07/16/21 06:40 Calcium 7.4 mg/dL (8.5-10.1) L 07/16/21 06:40 Corrected Calcium 8.8 mg/dL (8.5-10.1) 07/16/21 06:40 Total Bilirubin 0.30 mg/dL (0.2-1.0) 07/16/21 06:40 AST 20 Units/L (15-37) 07/16/21 06:40 ALT 26 Units/L (12-78) 07/16/21 06:40 Alkaline Phosphatase 42 Units/L (46-116) L 07/16/21 06:40 Creatine Kinase 801 Units/L (39-308) H 07/15/21 19:12 CK-MB (CK-2) 4.6 ng/mL (0-4.0) H* 07/15/21 19:12 CK/CKMB % Calc 0.6 % (<4) 07/15/21 19:12 Troponin I 0.02 ng/mL (0-1.5) 07/15/21 19:12 Total Protein 5.3 g/dL (6.4-8.2) L 07/16/21 06:40 Albumin 2.3 g/dL (3.4-5.0) L 07/16/21 06:40 Globulin 3.0 g/dL (2.5-4.5) 07/16/21 06:40 Albumin/Globulin Ratio 0.8 Ratio (1.1-2.1) L 07/16/21 06:40 Specimen Type Clean catch urine 07/15/21 17:47 Urine Color Yellow (YELLOW) 07/15/21 17:47 Urine Appearance Clear (CLEAR) 07/15/21 17:47 Urine pH 5.0 (5.0 - 8.0) 07/15/21 17:47 Ur Specific [place] 1.015 (1.000-1.030) 07/15/21 17:47 Urine Protein 4+ (NEGATIVE) 07/15/21 17:47 Urine Glucose (UA) 2+ (NEGATIVE) 07/15/21 17:47 Urine Ketones Negative (NEGATIVE) 07/15/21 17:47 Urine Occult Blood 2+ (NEGATIVE) 07/15/21 17:47 Urine Nitrite Negative (NEGATIVE) 07/15/21 17:47 Urine Bilirubin Negative (NEGATIVE) 07/15/21 17:47 Urine Urobilinogen Normal (NORMAL) 07/15/21 17:47 Ur Leukocyte Esterase Negative (NEGATIVE) 07/15/21 17:47 Urine RBC 3-5 /HPF (0-3) A 07/15/21 17:47 Urine WBC 0-2 /HPF (0-5) 07/15/21 17:47 Ur Squamous Epith Cells Rare /HPF (NEGATIVE) 07/15/21 17:47 Urine Bacteria Trace /HPF (NEGATIVE) 07/15/21 17:47 Ur Culture Indicated? No/not indicated 07/15/21 17:47 Urine Opiates Screen Negative (NEG=<300) 07/15/21 17:47 Urine Methadone Screen Negative (NEG=<300) 07/15/21 17:47 Ur Barbiturates Screen Negative (NEG=<200) 07/15/21 17:47 Ur Phencyclidine Scrn Negative (NEG=<25) 07/15/21 17:47 Ur Amphetamines Screen Negative (NEG=<1000) 07/15/21 17:47 U Benzodiazepines Scrn Negative (NEG=<200) 07/15/21 17:47 Urine Cocaine Screen Positive (NEG=<300) 07/15/21 17:47 U Marijuana (THC) Screen Negative (NEG=<50) 07/15/21 17:47 SARS-CoV-2 (PCR) Negative (NEGATIVE) 07/15/21 17:07 Influenza Type A (PCR) Negative (NEGATIVE) 07/15/21 17:07 Influenza Type B (PCR) Negative (NEGATIVE) 07/15/21 17:07 RSV (PCR) Negative (NEGATIVE) 07/15/21 17:07 Assessment/Plan (1) Chest pain: (2) Cocaine abuse: (3) CKD (chronic kidney disease) stage 4, GFR 15-29 ml/min: (4) Hypertensive urgency: Hospital Course Hospital Course: Pt is a 51 year old male past medical history of Hypertension, CKD, presenting after having chest pain. He states that he did use cocaine and started feeling chest pain shortly after. He admits to not being compliant with his prescribed medications. In the ED he was found to be significantly hypertensive. Labs/imaging: Wbc 7.1, Hgb 11.6, Plt 281, Na 140, K 3.6, Creatinine 4.39, glucose 100, Troponin negative x 2, UA negative, Cocaine positive, Ekg NSR, CXR was obtained that revealed: No acute radiographic abnormalities of the chest. Pt was monitored on telemetry and blood pressure managed with IV hydralazine and restarting home medications. Discussed risk of taking cocaine. Pt verbalized understanding and will consider changing his lifestyle in the near future. Information given for [facility] if patient chooses to pursue. ACS ruled out. Pt instructed to continue home medications. Follow up with pcp in 3-5 days. Discharge Medications Discharge Medications: Home Medication List clonidine 1 patch TOPICAL WE 07/15/21 [History] Prescriptions: Discharge Disposition Discharge Disposition: Home
== END 2021-07-16 11:15 | disposition home or self-care (01) ==
LOC: OBS 12:40 → ER 12:40
PROVIDERS: ADMIT Family Medicine; ATTEND Family Medicine
DX: I16.0 Hypertensive urgency; R94.31 Abnormal electrocardiogram [ECG] [EKG]; R07.89 Other chest pain; N18.4 Chronic kidney disease, stage 4 (severe); F14.10 Cocaine abuse, uncomplicated; Z20.822 Contact with and (suspected) exposure to COVID-19

== ENCOUNTER 2022-05-04 16:00 | Inpatient (IN) ==
[2022-05-04 16:11] VITALS: BMI 27.4
[2022-05-04] MEDS ORDERED: APRESOLINE INJ 20 MG VIAL IVP ONE ×2 (16:41→17:40)
[2022-05-04] MEDS ORDERED: APRESOLINE INJ 20 MG VIAL ONE (16:48)
[2022-05-04 16:49] LABS: BASOPHILS # (AUTO) 0.1 X10^3/uL (0.0-0.1); BASOPHILS % (AUTO) 0.9 % (0.2-1.0); EOSINOPHILS % (AUTO) 0.2 % (0.9-2.9); HEMATOCRIT 42.7 % (42.0-54.0); HEMOGLOBIN 14.7 g/dL (13.5-18.0); LYMPHOCYTES # (AUTO) 0.5 X10^3/uL (1.3-2.9); LYMPHOCYTES % (AUTO) 6.9 % (21.0-51.0); MEAN CORPUSCULAR HEMOGLOBIN 30.9 pg (27.0-34.0); MEAN CORPUSCULAR HGB CONC 34.3 g/dL (33.0-35.0); MEAN PLATELET VOLUME 9.6 fL (7.4-11.0); MONOCYTES # (AUTO) 1.3 x10^3/uL (0.3-0.8); MONOCYTES % (AUTO) 18.2 % (0.0-13.0); NEUTROPHILS # (AUTO) 5.1 x10^3/uL (2.2-4.8); NEUTROPHILS % (AUTO) 73.8 % (42.0-75.0); RED BLOOD COUNT 4.74 X10^6/uL (4.7-6.0); RED CELL DISTRIBUTION WIDTH 14.2 % (11.6-16.5); WHITE BLOOD COUNT 6.9 X10^3/uL (3.6-10.0)
[2022-05-04 17:17] LABS: ALANINE AMINOTRANSFERASE 32 Units/L (12-78); ALBUMIN 3.5 g/dL (3.4-5.0); ALKALINE PHOSPHATASE 57 Units/L (46-116); ASPARTATE AMINO TRANSFERASE 26 Units/L (15-37); BLOOD UREA NITROGEN 47 mg/dL (7-18); CALCIUM 8.9 mg/dL (8.5-10.1); CHLORIDE 105 mmol/L (98-107); CKMB % 0.5 % (<4); CREATINE KINASE 471 Units/L (39-308); CREATINE KINASE MB 2.5 ng/mL (0-4.0); CREATININE 5.76 mg/dL (0.70-1.30); SODIUM 137 mmol/L (136-145); TOTAL PROTEIN 7.3 g/dL (6.4-8.2); eGFR NON BLACK RACES 11 (>60)
--- NOTE | 2022-05-04 17:21 | DR.CP ---
HPI Time Seen Time Seen by Provider: 05/04/22 17:11 PCP Primary Care Physician: DR MELO HPI Comment HPI Comment: A 52 y/o male presenting with multiple but related c/o. He states that he has noted his BP to be quite elevated since 04/30/2022. He has associated headache and blurry vision. There is no nausea or vomiting. He has c/o also of stabbing chest pain that is not radiating. He has a productive phlegm with the cough. HE denies fever. He states that his BP has been difficlt to control and his meds. are therefore being changed. He doesn't recollect the name of what he currently takes. Also he did some cocaine this past weekend. He has known hx. of HTN and CKD but is not on HD yet. Complaint Chief Complaint:: PT C/O ELEVATED BP SINCE MONDAY. MONDAY PT WENT TO A FAMILY REUNION AND WAS AROUND A LARGE CROWD. SINCE THEN HE HAS HAD PROGRESSIVELY WORSENING HTN, SOB WITH EXERTION AND PRODUCTIVE COUGH WITH YELLOW SPUTUM. STATES THAT WHEN HE COUGHS HE HAS SUBSTERNAL SHARP STABBING CHEST PAIN THAT IS NONRADIATING. Self Treatment fo Chief Complaint: PT STATES THAT HE LOST HIS NORMAL BP THIS WEEKEND AND HAS BEEN TAKING HIS PREVIOUS BP MED. COVID-19 Coronavirus risk:travel/contact w/high risk person: No Has patient experienced Coronavirus symptoms: No Reviewed Nurses Notes Review: Yes Source History Provided: Patient Mode of Arrival Mode of Arrival: EMS Timing Onset of Chief Complaint: 05/04/22 Duration Duration: Intermittent How lon Duration: Days Location Location of Chest Pain: Chest Chest Pain Radiation Location: None Context Onset: At rest Cardiac Risk Factors: Smoker and HTN PE Risk Factors: None History of: None Prehospital Care: None Modifying Factors Worsens: Nothing Impoves: Nothing Associated Signs and Symptoms Associated Signs and Symptoms: Shortness of Breath PMH PMH Past Medical History: Yes Past Medical History: Asthma, Hypertension and Renal Disease Past Surgical History: No Surgical History: Unknown Family History History of Family Medical Conditions: Yes Family Medical History: Diabetes Mellitus Social History Does patient currently use any type of tobacco product: Yes Have you used tobacco products in the last 12 months: Yes Type of Tobacco Use: Cigarettes Does any household member use tobacco: Yes Alcohol Use: Occasionally Do you use any recreational Drugs:: Yes (COCAINE,MARIJUANA) Lives With: Family Lives Where: Home Travel Risk Coronavirus risk:travel/contact w/high risk person: No Has patient experienced Coronavirus symptoms: No Infectious screening In the last 2 months have you had wt loss of >10#?: NO Have you had fever, night sweats or hemotysis?: No Have you traveled outside the country in the last 6 months?: No Isolation: Standard ROS Review of Systems Constitutional: No Symptoms Reported Eyes: No Symptoms Reported ENTM: No Symptoms Reported Respiratoy: Productive Cough Cardiovascular: Chest Pain Gastrointestinal/Abdominal: No Symptoms Reported Genitourinary: No Symptoms Reported Neurological: Headache Musculoskeletal: No Symptoms Reported Integumentary: No Symptoms Reported Hematologic/Lymphatic: No Symptoms Reported Endocrine: No Symptoms Reported Psychiatric: No Symptoms Reported PE Vitals Vitals: Temperature 98.3 F Pulse Rate 95 Respiratory Rate 20 Blood Pressure [Right Arm] 184/97 Blood Pressure 232/142 O2 Sat by Pulse Oximetry 97 General Limitations: No Limitations General Appearance: Alert and In No Apparent Distress Head Head Exam: Normal Inspection, Atraumatic and Normocephalic Eyes Eye exam: Normal Appearance and EOMI ENT ENT Exam: Normal Exam, Normal Oropharynx, Normal External Ear Exam and Mucous Membranes Moist Chest Chest Inspection: Normal Inspection and Symmetric Chest Wall Rise Respiratory Respiratory Exam: Normal Lung Sounds Bilat Cardiovascular Cardiovascular Exam: Regular Rate, Normal Rhythm, Normal Heart Sounds, +S1 and +S2 Edema: Normal Abdominal Exam Abdominal Exam: Normal Inspection, Normal Bowel Sounds and Soft Extremities Extremities Exam: Normal Inspection and Full ROM Back Back Exam: Normal Inspection and Full ROM Neurologic Neurological Exam: Alert and Oriented X3 Psychiatric Psychiatric Exam: Normal Affect and Normal Mood Skin Skin Exam: Intact COURSE Treatment Treatment: He was informed of his test results and plan to admit. I then spoke with ton container shipper MD (Dr. Juarez) who agrees to admit here for BP management. [facility]OR Labs Reviewed Result Diagrams: 05/04/22 16:15 05/04/22 16:15 Laboratory: WBC 6.9 X10^3/uL (3.6-10.0) 05/04/22 16:15 RBC 4.74 X10^6/uL (4.7-6.0) 05/04/22 16:15 Hgb 14.7 g/dL (13.5-18.0) 05/04/22 16:15 Hct 42.7 % (42.0-54.0) 05/04/22 16:15 MCV 90.0 fL (80.0-100.0) 05/04/22 16:15 MCH 30.9 pg (27.0-34.0) 05/04/22 16:15 MCHC 34.3 g/dL (33.0-35.0) 05/04/22 16:15 RDW 14.2 % (11.6-16.5) 05/04/22 16:15 Plt Count 214 X10^3/uL (150.0-450.0) 05/04/22 16:15 MPV 9.6 fL (7.4-11.0) 05/04/22 16:15 Neut % (Auto) 73.8 % (42.0-75.0) 05/04/22 16:15 Lymph % (Auto) 6.9 % (21.0-51.0) L 05/04/22 16:15 [place] % (Auto) 18.2 % (0.0-13.0) H 05/04/22 16:15 Eos % (Auto) 0.2 % (0.9-2.9) L 05/04/22 16:15 Baso % (Auto) 0.9 % (0.2-1.0) 05/04/22 16:15 Neut # (Auto) 5.1 x10^3/uL (2.2-4.8) H 05/04/22 16:15 Lymph # (Auto) 0.5 X10^3/uL (1.3-2.9) L 05/04/22 16:15 [place] # (Auto) 1.3 x10^3/uL (0.3-0.8) H 05/04/22 16:15 Eos # (Auto) 0.0 x10^3/uL (0.0-0.2) 05/04/22 16:15 Baso # (Auto) 0.1 X10^3/uL (0.0-0.1) 05/04/22 16:15 Absolute Nucleated RBC 0.1 /100WBC 05/04/22 16:15 D-Dimer 0.40 ug/ml (0.0-0.57) 05/04/22 16:15 Sodium 137 mmol/L (136-145) 05/04/22 16:15 Corrected Sodium TNP 05/04/22 16:15 Potassium 3.7 mmol/L (3.5-5.1) 05/04/22 16:15 Chloride 105 mmol/L (98-107) 05/04/22 16:15 Carbon Dioxide 22.0 mmol/L (21-32) 05/04/22 16:15 BUN 47 mg/dL (7-18) H 05/04/22 16:15 Creatinine 5.76 mg/dL (0.70-1.30) H 05/04/22 16:15 Est GFR (MDRD) Af Amer 13 (>60) L 05/04/22 16:15 Est GFR (MDRD) Non-Af 11 (>60) L 05/04/22 16:15 Glucose 100 mg/dL (65-99) H 05/04/22 16:15 Calcium 8.9 mg/dL (8.5-10.1) 05/04/22 16:15 Corrected Calcium TNP 05/04/22 16:15 Ferritin 257 ng/mL (26-388) 05/04/22 16:15 Total Bilirubin 0.40 mg/dL (0.2-1.0) 05/04/22 16:15 AST 26 Units/L (15-37) 05/04/22 16:15 ALT 32 Units/L (12-78) 05/04/22 16:15 Alkaline Phosphatase 57 Units/L (46-116) 05/04/22 16:15 Creatine Kinase 471 Units/L (39-308) H 05/04/22 16:15 CK-MB (CK-2) 2.5 ng/mL (0-4.0) 05/04/22 16:15 CK/CKMB % Calc 0.5 % (<4) 05/04/22 16:15 Troponin I High Sens 56.8 ng/L (4.0-60.0) 05/04/22 16:15 C-Reactive Protein 6.50 mg/L (0-3.0) H 05/04/22 16:15 Total Protein 7.3 g/dL (6.4-8.2) 05/04/22 16:15 Albumin 3.5 g/dL (3.4-5.0) 05/04/22 16:15 Globulin 3.8 g/dL (2.5-4.5) 05/04/22 16:15 Albumin/Globulin Ratio 0.9 Ratio (1.1-2.1) L 05/04/22 16:15 Specimen Type Clean catch urine 05/04/22 18:35 Urine Color Yellow (YELLOW) 05/04/22 18:35 Urine Appearance Clear (CLEAR) 05/04/22 18:35 Urine pH 6.0 (5.0 - 8.0) 05/04/22 18:35 Ur Specific [place] 1.020 (1.000-1.030) 05/04/22 18:35 Urine Protein 4+ (NEGATIVE) 05/04/22 18:35 Urine Glucose (UA) 2+ (NEGATIVE) 05/04/22 18:35 Urine Ketones 1+ (NEGATIVE) 05/04/22 18:35 Urine Blood 3+ (NEGATIVE) 05/04/22 18:35 Urine Nitrite Negative (NEGATIVE) 05/04/22 18:35 Urine Bilirubin Negative (NEGATIVE) 05/04/22 18:35 Urine Urobilinogen Normal (NORMAL) 05/04/22 18:35 Ur Leukocyte Esterase Negative (NEGATIVE) 05/04/22 18:35 Urine RBC 0-2 /HPF (0-3) 05/04/22 18:35 Urine WBC 0-2 /HPF (0-5) 05/04/22 18:35 Ur Squamous Epith Cells Rare /HPF (NEGATIVE) 05/04/22 18:35 Amorphous Sediment 1+ /HPF (NEGATIVE) 05/04/22 18:35 Urine Bacteria Trace /HPF (NEGATIVE) 05/04/22 18:35 Granular Casts Few /LPF (NEGATIVE) 05/04/22 18:35 Ur Culture Indicated? No/not indicated 05/04/22 18:35 Urine Opiates Screen Negative (NEG=<300) 05/04/22 18:35 Urine Methadone Screen Negative (NEG=<300) 05/04/22 18:35 Ur Barbiturates Screen Negative (NEG=<200) 05/04/22 18:35 Ur Phencyclidine Scrn Negative (NEG=<25) 05/04/22 18:35 Ur Amphetamines Screen Negative (NEG=<1000) 05/04/22 18:35 U Benzodiazepines Scrn Negative (NEG=<200) 05/04/22 18:35 Urine Cocaine Screen Positive (NEG=<300) 05/04/22 18:35 U Marijuana (THC) Screen Positive (NEG=<50) A 05/04/22 18:35 SARS-CoV-2 (PCR) Negative (NEGATIVE) 05/04/22 18:29 Influenza Type A (PCR) Positive (NEGATIVE) A 05/04/22 18:29 Influenza Type B (PCR) Negative (NEGATIVE) 05/04/22 18:29 RSV (PCR) Negative (NEGATIVE) 05/04/22 18:29 EKG Rate: 81 [place]: Normal Rhythm: NSR Block: None Hypertrophy: LVH ST: Inf, Lat and Ischemia Opioid Opioid Risk Tool Family Hx of Substance Abuse: Alcohol Personal Hx of Substance Abuse: Alcohol Age (Nav box if 16-45): Yes History of Preadolescent Sexual Abuse: No Psychological Disease: Depression Total: 1 Total Score Risk Category: Low Risk Copyright: Wilber AGEE predicting aberrant behaviors Discharge Plan Diagnosis Discharge Problem: Hypertensive urgency, CKD (chronic kidney disease) stage 5, GFR less than 15 ml/min, Current recreational drug use, Influenza A Chest pain Qualifiers: Chest pain type: unspecified Qualified Code(s): R07.9 - Chest pain, unspecified Discharge Plan Patient Disposition: ADMITTED INPATIENT Condition: Stable Orders to Discharge Patient Discharge Orders: Transfer (Routine); Ordered 05/04/22 Ordered By: RONALD TAYLOR
--- NOTE | 2022-05-04 17:38 | RAD ---
HISTORYReason For StudySTUDYCHEST, 1 VIEWCOMPARISONSeptember 2020.TECHNIQUEA single frontal view of the chest was obtained.FINDINGSThere are multiple EKG leads and wires seen overlying the patient. The heart is normal in size. There is no focal infiltrate. There is no effusion. There is no pneumothorax. The osseous structures are intact.IMPRESSIONNo focal infiltrate or effusion.Electronically signed by: Carmen Omalley (May 04, 2022 17:36:18)
[2022-05-04 18:55] LABS: BILIRUBIN,URINE NEGATIVE (NEGATIVE); BLOOD/HEMOGLOBIN,URINE 3+ (NEGATIVE); GLUCOSE, URINE 2+ (NEGATIVE); KETONES,URINE 1+ (NEGATIVE); LEUKOCYTE ESTERASE ,URINE NEGATIVE (NEGATIVE); NITRITES,URINE NEGATIVE (NEGATIVE); PROTEIN,URINE 4+ (NEGATIVE); UROBILINOGEN,URINE NORMAL (NORMAL)
[2022-05-04 19:23] LABS: APPEARANCE,URINE CLEAR (CLEAR); COLOR,URINE YELLOW (YELLOW)
[2022-05-04 19:24] LABS: BACTERIA,URINE TRACE /HPF (NEGATIVE); GRANULAR CASTS,URINE FEW /LPF (NEGATIVE); RBC,URINE 0-2 /HPF (0-3); SQUAMOUS EPITHELIAL CELL,UR RARE /HPF (NEGATIVE)
[2022-05-04] MEDS ORDERED: LOPRESSOR INJ 5 MG AMP IVP ONE (20:16)
[2022-05-04] MEDS ORDERED: LOPRESSOR INJ 5 MG AMP ONE (20:17)
[2022-05-04] MEDS ORDERED: CARDENE IV PREMIX* 40 MG/200 ML 40 MG/200 ML PIGGYBACK IV ONE ×2 (20:42→20:59)
[2022-05-04] MEDS: CARDENE IV PREMIX* 40 MG/200 ML 40 MG/200 ML PIGGYBACK IV PRN (21:46)
--- NOTE | 2022-05-04 21:55 | RAD ---
EXAM: CHEST X-RAYHISTORY: Central line placement verification.TECHNIQUE: AP CXR dated May 04, 2022 at 9:38 PM.COMPARISON: CXR dated May 04, 2022 at 4:46 PMFINDINGS:There is interval placement of a left subclavian central venous catheter with distal tip in SVC (adequate position). Recommend careful clinical correlation to ensure venous blood return.The heart size and mediastinum are within normal limits. The lung aguirre and costophrenic angles are clear. There is no acute parenchymal infiltrate, pleural effusion, or pneumothorax seen. The visualized bony structures are within normal limits.IMPRESSION:1. No evidence for acute cardiopulmonary disease seen.2. Interval placement of a left subclavian central venous catheter with distal tip in SVC (adequate position). Recommend careful clinical correlation to ensure venous blood return.Electronically signed by: Sowmya Abraham (May 04, 2022 21:53:11)
[2022-05-04 23:02] LABS: CKMB % 0.4 % (<4); CREATINE KINASE MB 2.5 ng/mL (0-4.0)
[2022-05-04 23:13] LABS: ABG BASE EXCESS -7.2 mmol/L (-2.0-2.0)
[2022-05-04 23:14] LABS: ABG ALLEN TEST POS; ABG HCO3 16.1 mmol/L (22-26)
--- NOTE | 2022-05-05 00:28 | DR.OPNOTE ---
OP NOTE Pre-Op Diagnosis: Hypertension Post-Op Diagnosis: same , need for central veous access Procedure Date Date Of Procedure: 05/04/22 Procedure: PROCEDURE: Left subclavian vein central venous access NARRATIVE :The patient was placed in Trendelenburg position and the left neck and chest prepped and draped in sterile fashion . The skin under the left clavicle and along the left chest wall infiltrated with 1 % Xylocaine. 16 gauge needle use to puncture the left subclavian vein and guide wire placed without difficulty. Incision made over the guide wire with a number 11 knife played at the skin edge and dilator placed over the guide wire into the left subclavian vein. Dilator was removed and the triple Lumen catheter placed over the guide wire into the left subclavian vein. Guide wire removed and all ports aspirated blood and flushed with heparinized saline . Catheter secured to the skin with instructed silk sutures . Post-procedure chest X-rays showed no pneumothorax and good placement of the catheter in the left subclavian vein . Type of Anesthesia: Local (1 % Xylocaine) EBL: minimal Complications:: none Disposition/Condition: Post procedure CXR shows good placement of left subclavian vein central venous catheter without pneumothorax.
[2022-05-05] MEDS ORDERED: CARDENE IV PREMIX* 40 MG/200 ML 40 MG/200 ML PIGGYBACK IV ONE ×3 (01:25→10:35)
[2022-05-05] MEDS: CARDENE IV PREMIX* 40 MG/200 ML 40 MG/200 ML PIGGYBACK IV PRN ×4 (01:26→10:41)
[2022-05-05 04:49] LABS: BASOPHILS # (AUTO) 0.1 X10^3/uL (0.0-0.1); BASOPHILS % (AUTO) 0.7 % (0.2-1.0); EOSINOPHILS % (AUTO) 0.1 % (0.9-2.9); HEMATOCRIT 42.1 % (42.0-54.0); HEMOGLOBIN 14.5 g/dL (13.5-18.0); LYMPHOCYTES # (AUTO) 0.7 X10^3/uL (1.3-2.9); LYMPHOCYTES % (AUTO) 6.9 % (21.0-51.0); MEAN CORPUSCULAR HEMOGLOBIN 30.9 pg (27.0-34.0); MEAN CORPUSCULAR HGB CONC 34.4 g/dL (33.0-35.0); MEAN CORPUSCULAR VOLUME 89.9 fL (80.0-100.0); MEAN PLATELET VOLUME 9.5 fL (7.4-11.0); MONOCYTES # (AUTO) 1.3 x10^3/uL (0.3-0.8); MONOCYTES % (AUTO) 12.4 % (0.0-13.0); NEUTROPHILS # (AUTO) 8.2 x10^3/uL (2.2-4.8); NEUTROPHILS % (AUTO) 79.9 % (42.0-75.0); RED BLOOD COUNT 4.69 X10^6/uL (4.7-6.0); RED CELL DISTRIBUTION WIDTH 14.2 % (11.6-16.5); WHITE BLOOD COUNT 10.2 X10^3/uL (3.6-10.0)
[2022-05-05 05:20] LABS: ALANINE AMINOTRANSFERASE 31 Units/L (12-78); ALBUMIN 3.4 g/dL (3.4-5.0); ALKALINE PHOSPHATASE 58 Units/L (46-116); ASPARTATE AMINO TRANSFERASE 33 Units/L (15-37); BLOOD UREA NITROGEN 49 mg/dL (7-18); CALCIUM 8.4 mg/dL (8.5-10.1); CARBON DIOXIDE 15.7 mmol/L (21-32); CHLORIDE 106 mmol/L (98-107); CKMB % 0.3 % (<4); CREATINE KINASE 810 Units/L (39-308); CREATINE KINASE MB 2.6 ng/mL (0-4.0); CREATININE 5.71 mg/dL (0.70-1.30); SODIUM 137 mmol/L (136-145); TOTAL PROTEIN 7.1 g/dL (6.4-8.2); eGFR NON BLACK RACES 11 (>60)
[2022-05-05] MEDS ORDERED: HEPARIN SODIUM INJ 5000 UNITS ONE ×2 (05:40→17:32)
[2022-05-05] MEDS ORDERED: HEPARIN SODIUM IN D5W 25,000 UNITS/500 ML BAG ONE (05:40)
[2022-05-05] MEDS ORDERED: HEPARIN SODIUM INJ 5000 UNITS IVP ONE ×3 (05:41→23:45)
[2022-05-05] MEDS: HEPARIN SODIUM IN D5W 25,000 UNITS/500 ML BAG IV PRN (05:48)
[2022-05-05] MEDS ORDERED: TAMIFLU PO SCH (09:00)
[2022-05-05] MEDS: TAMIFLU PO SCH (09:45)
[2022-05-05 11:17] LABS: CKMB % 0.3 % (<4); CREATINE KINASE MB 2.7 ng/mL (0-4.0)
[2022-05-05] MEDS: NS 1,000 ML IV 1,000 ML IV SCH (11:33)
[2022-05-05] MEDS ORDERED: NS 1,000 ML IV 1,000 ML ONE (11:33)
--- NOTE | 2022-05-05 13:07 | DR.H&P ---
H&P History & Physical for Day of: H&P Date: 05/05/22 Chief Complaint Chief Complaint: Shortness of breath Chest pain Elevated blood pressure Allergies Allergies Allergy/AdvReac Type Severity Reaction Status Date / Time lisinopril Allergy Verified 07/15/21 12:28 History of Present Illness History of Present Illness: Pt is a 52 year old male past medical history of Hypertension, CKD stage IV, presenting with shortness of breath, chest pain, and noticed that his blood pressure was severely elevated. Reports it has been elevated since the weekend and that he did not take his medication. Reports associated headache and blurry vision. Denies nausea, vomiting, diaphoresis. Associated also with mid-sternal chest pain. Has been having productive cough and chills. Labs/imaging: Wbc 10.2, Hgb 14.5, Plt 226, Na 137, K 3.7, Creatinine 5.71, Glucose 109, UA negative, +Influenza, UDS: positive cocaine, CXR: No focal infiltrate or effusion. ABG: pH 7.4, pCO2 26, pO2 57, HCO3 16, O2sat 89% on Room air. D-dimer negative. EKG NSR. In the ED, pt was noted to have hypertensive urgency that did not respond to IV medications. He was started on a cardene gtt and titrated to achieve appropriate blood pressure per protocol. Troponin was obtained that was elevated, pt was started on heparin gtt overnight. Troponin:78>130>325. Will add IV morphine prn for pain control, Tamiflu at renal dosing for Influenza A, and IVF NS@75ml/h. NSTEMI likely due to hypertensive urgency and cocaine. Will continue medical management. Continue to trend cardiac enzymes. Restart home medications. Continue to closely monitor and follow up labs. Time spent on clinical assessment, reviewing labs and imaging, decision making, and documentation greater than 45 minutes. Past Medical History Past Medical History: Asthma, Hypertension and Renal Disease Past Surgical History Surgical History: Unknown Family History Family Medical History: Diabetes Mellitus Social History Does patient currently use any type of tobacco product: Yes Have you used tobacco products in the last 12 months: Yes Type of Tobacco Use: Cigarettes Does any household member use tobacco: Yes Alcohol Use: None Drug Use: Cocaine and Marijuana Medications Home Medications: lisinopril Allergy (Verified 07/15/21 12:28) CONTINUE taking the following medications labetalol 200 mg tablet 2 tab PO BID 05/05/22 [History] metoprolol succinate 100 mg tablet,extended release 24 hr 100 mg PO BID 05/05/22 [History] oxycodone 10 mg tablet 10 mg PO BID PRN 05/05/22 [History] Labs Result Diagrams: 05/05/22 04:18 05/05/22 04:18 Labs: Laboratory WBC 10.2 X10^3/uL (3.6-10.0) H 05/05/22 04:18 RBC 4.69 X10^6/uL (4.7-6.0) L 05/05/22 04:18 Hgb 14.5 g/dL (13.5-18.0) 05/05/22 04:18 Hct 42.1 % (42.0-54.0) 05/05/22 04:18 MCV 89.9 fL (80.0-100.0) 05/05/22 04:18 MCH 30.9 pg (27.0-34.0) 05/05/22 04:18 MCHC 34.4 g/dL (33.0-35.0) 05/05/22 04:18 RDW 14.2 % (11.6-16.5) 05/05/22 04:18 Plt Count 226 X10^3/uL (150.0-450.0) 05/05/22 04:18 MPV 9.5 fL (7.4-11.0) 05/05/22 04:18 Neut % (Auto) 79.9 % (42.0-75.0) H 05/05/22 04:18 Lymph % (Auto) 6.9 % (21.0-51.0) L 05/05/22 04:18 [place] % (Auto) 12.4 % (0.0-13.0) 05/05/22 04:18 Eos % (Auto) 0.1 % (0.9-2.9) L 05/05/22 04:18 Baso % (Auto) 0.7 % (0.2-1.0) 05/05/22 04:18 Neut # (Auto) 8.2 x10^3/uL (2.2-4.8) H 05/05/22 04:18 Lymph # (Auto) 0.7 X10^3/uL (1.3-2.9) L 05/05/22 04:18 [place] # (Auto) 1.3 x10^3/uL (0.3-0.8) H 05/05/22 04:18 Eos # (Auto) 0.0 x10^3/uL (0.0-0.2) 05/05/22 04:18 Baso # (Auto) 0.1 X10^3/uL (0.0-0.1) 05/05/22 04:18 Absolute Nucleated RBC 0.1 /100WBC 05/05/22 04:18 PT 14.3 SECONDS (11.8-14.3) 05/05/22 05:41 INR Target Range - 05/05/22 05:41 INR 1.14 (0.8-1.3) 05/05/22 05:41 APTT 131.8 SECONDS (22.9-36.5) H 05/05/22 10:42 PTT Comment - 05/05/22 10:42 D-Dimer 0.40 ug/ml (0.0-0.57) 05/04/22 16:15 Sample Site Lr 05/04/22 23:07 ABG pH 7.400 (7.35-7.45) 05/04/22 23:07 ABG pCO2 26.0 mmHg (35.0-45.0) L 05/04/22 23:07 ABG pO2 57.0 mmHg (80.0-100.0) L 05/04/22 23:07 ABG HCO3 16.1 mmol/L (22-26) L* 05/04/22 23:07 ABG O2 Saturation 89.0 % (90-100) L 05/04/22 23:07 ABG Base Excess -7.2 mmol/L (-2.0-2.0) L 05/04/22 23:07 Harsha Test Pos 05/04/22 23:07 A-a Gradient 60.0 mmHg 05/04/22 23:07 FiO2 21.0 05/04/22 23:07 Blood Gas Comments Dc well ae 05/04/22 23:07 Sodium 137 mmol/L (136-145) 05/05/22 04:18 Corrected Sodium TNP 05/05/22 04:18 Potassium 3.7 mmol/L (3.5-5.1) 05/05/22 04:18 Chloride 106 mmol/L (98-107) 05/05/22 04:18 Carbon Dioxide 15.7 mmol/L (21-32) L 05/05/22 04:18 BUN 49 mg/dL (7-18) H 05/05/22 04:18 Creatinine 5.71 mg/dL (0.70-1.30) H 05/05/22 04:18 Est GFR (MDRD) Af Amer 14 (>60) L 05/05/22 04:18 Est GFR (MDRD) Non-Af 11 (>60) L 05/05/22 04:18 Glucose 109 mg/dL (65-99) H 05/05/22 04:18 Calcium 8.4 mg/dL (8.5-10.1) L 05/05/22 04:18 Corrected Calcium TNP 05/05/22 04:18 Ferritin 257 ng/mL (26-388) 05/04/22 16:15 Total Bilirubin 0.40 mg/dL (0.2-1.0) 05/05/22 04:18 AST 33 Units/L (15-37) 05/05/22 04:18 ALT 31 Units/L (12-78) 05/05/22 04:18 Alkaline Phosphatase 58 Units/L (46-116) 05/05/22 04:18 Creatine Kinase 936 Units/L (39-308) H 05/05/22 10:42 CK-MB (CK-2) 2.7 ng/mL (0-4.0) 05/05/22 10:42 CK/CKMB % Calc 0.3 % (<4) 05/05/22 10:42 Troponin I High Sens 325.5 ng/L (4.0-60.0) H* 05/05/22 10:42 C-Reactive Protein 6.50 mg/L (0-3.0) H 05/04/22 16:15 Total Protein 7.1 g/dL (6.4-8.2) 05/05/22 04:18 Albumin 3.4 g/dL (3.4-5.0) 05/05/22 04:18 Globulin 3.7 g/dL (2.5-4.5) 05/05/22 04:18 Albumin/Globulin Ratio 0.9 Ratio (1.1-2.1) L 05/05/22 04:18 Specimen Type Clean catch urine 05/04/22 18:35 Urine Color Yellow (YELLOW) 05/04/22 18:35 Urine Appearance Clear (CLEAR) 05/04/22 18:35 Urine pH 6.0 (5.0 - 8.0) 05/04/22 18:35 Ur Specific [place] 1.020 (1.000-1.030) 05/04/22 18:35 Urine Protein 4+ (NEGATIVE) 05/04/22 18:35 Urine Glucose (UA) 2+ (NEGATIVE) 05/04/22 18:35 Urine Ketones 1+ (NEGATIVE) 05/04/22 18:35 Urine Blood 3+ (NEGATIVE) 05/04/22 18:35 Urine Nitrite Negative (NEGATIVE) 05/04/22 18:35 Urine Bilirubin Negative (NEGATIVE) 05/04/22 18:35 Urine Urobilinogen Normal (NORMAL) 05/04/22 18:35 Ur Leukocyte Esterase Negative (NEGATIVE) 05/04/22 18:35 Urine RBC 0-2 /HPF (0-3) 05/04/22 18:35 Urine WBC 0-2 /HPF (0-5) 05/04/22 18:35 Ur Squamous Epith Cells Rare /HPF (NEGATIVE) 05/04/22 18:35 Amorphous Sediment 1+ /HPF (NEGATIVE) 05/04/22 18:35 Urine Bacteria Trace /HPF (NEGATIVE) 05/04/22 18:35 Granular Casts Few /LPF (NEGATIVE) 05/04/22 18:35 Ur Culture Indicated? No/not indicated 05/04/22 18:35 Urine Opiates Screen Negative (NEG=<300) 05/04/22 18:35 Urine Methadone Screen Negative (NEG=<300) 05/04/22 18:35 Ur Barbiturates Screen Negative (NEG=<200) 05/04/22 18:35 Ur Phencyclidine Scrn Negative (NEG=<25) 05/04/22 18:35 Ur Amphetamines Screen Negative (NEG=<1000) 05/04/22 18:35 U Benzodiazepines Scrn Negative (NEG=<200) 05/04/22 18:35 Urine Cocaine Screen Positive (NEG=<300) 05/04/22 18:35 U Marijuana (THC) Screen Positive (NEG=<50) A 05/04/22 18:35 SARS-CoV-2 (PCR) Negative (NEGATIVE) 05/04/22 18:29 Influenza Type A (PCR) Positive (NEGATIVE) A 05/04/22 18:29 Influenza Type B (PCR) Negative (NEGATIVE) 05/04/22 18:29 RSV (PCR) Negative (NEGATIVE) 05/04/22 18:29 Review of Systems Constitutional: Chills and Weakness Eyes: No Symptoms Reported ENT: No Symptoms Reported Respiratory: Cough and Shortness of Breath Cardiovascular: Chest Pain Gastrointestinal: No Symptoms Reported Genitourinary: No Symptoms Reported Musculoskeletal: No Symptoms Reported Skin: No Symptoms Reported Neurological: No Symptoms Reported Physical Exam Vital Signs: Temperature 98.4 F Pulse Rate 90 Respiratory Rate 32 Blood Pressure [Right Arm] 184/97 Blood Pressure 142/76 O2 Sat by Pulse Oximetry 96 Oriented: Normal Eyes: Normal Ear: Normal Nose: Normal Throat: Normal Respiratory: Clear Throughout Cardiovascular: Normal : Normal Auscultation: Bowel Sounds: Normal Palpation: Normal Tenderness: Normal Skin: Normal Musculoskeletal: Normal Psychiatric: Normal Mood Description: Calm and Appropriate Affect: Normal Speech Pattern: Clear and Appropriate Assessment/Plan (1) Hypertensive urgency: Status: Acute (2) Chest pain: Qualifiers: Chest pain type: unspecified Qualified Code(s): R07.9 - Chest pain, unspecified Status: Acute (3) CKD (chronic kidney disease) stage 4, GFR 15-29 ml/min: Status: Acute (4) Influenza A: Status: Acute (5) Cocaine abuse: Status: Acute (6) NSTEMI (non-ST elevated myocardial infarction): Status: Acute Review H&P Reviewed: Yes Patient was examined?: Yes
[2022-05-05] MEDS ORDERED: LOPRESSOR TAB 50 MG ONE (14:50)
[2022-05-05] MEDS ORDERED: NORMODYNE TAB 100 MG ONE (14:50)
[2022-05-05] MEDS ORDERED: LOPRESSOR TAB 50 MG PO SCH (15:00)
[2022-05-05] MEDS ORDERED: NORMODYNE TAB 200 MG PO SCH (15:00)
[2022-05-05 15:09] LABS: CKMB % 0.2 % (<4); CREATINE KINASE MB 2.1 ng/mL (0-4.0)
[2022-05-05] MEDS: APRESOLINE TAB 25 MG PO SCH (21:31)
[2022-05-05] MEDS: CATAPRES TAB 0.2 MG PO SCH (21:31)
[2022-05-05] MEDS: COLACE CAP 100 MG PO SCH (21:37)
[2022-05-05] MEDS: ROBITUSSIN DM PO PRN (21:44)
[2022-05-05] MEDS: MORPHINE SULFATE INJ 2 MG INJ IVP PRN (21:44)
[2022-05-05] MEDS: NICOTINE PATCH TD SCH (22:20)
[2022-05-06] MEDS: NS 1,000 ML IV 1,000 ML IV SCH ×3 (01:01→16:49)
[2022-05-06] MEDS: ROBITUSSIN DM PO PRN ×3 (02:16→22:01)
[2022-05-06 05:13] LABS: BASOPHILS % (AUTO) 0.4 % (0.2-1.0); EOSINOPHILS % (AUTO) 0.2 % (0.9-2.9); HEMATOCRIT 34.3 % (42.0-54.0); HEMOGLOBIN 11.9 g/dL (13.5-18.0); LYMPHOCYTES # (AUTO) 0.6 X10^3/uL (1.3-2.9); LYMPHOCYTES % (AUTO) 7.2 % (21.0-51.0); MEAN CORPUSCULAR HEMOGLOBIN 31.1 pg (27.0-34.0); MEAN CORPUSCULAR HGB CONC 34.6 g/dL (33.0-35.0); MEAN CORPUSCULAR VOLUME 89.8 fL (80.0-100.0); MEAN PLATELET VOLUME 10.1 fL (7.4-11.0); NEUTROPHILS # (AUTO) 6.4 x10^3/uL (2.2-4.8); NEUTROPHILS % (AUTO) 79.2 % (42.0-75.0); RED BLOOD COUNT 3.82 X10^6/uL (4.7-6.0); RED CELL DISTRIBUTION WIDTH 13.8 % (11.6-16.5)
[2022-05-06 05:37] LABS: ALANINE AMINOTRANSFERASE 26 Units/L (12-78); ALBUMIN 2.6 g/dL (3.4-5.0); ALKALINE PHOSPHATASE 44 Units/L (46-116); ASPARTATE AMINO TRANSFERASE 30 Units/L (15-37); BLOOD UREA NITROGEN 49 mg/dL (7-18); CALCIUM 7.5 mg/dL (8.5-10.1); CARBON DIOXIDE 15.9 mmol/L (21-32); CHLORIDE 106 mmol/L (98-107); COR CA(FOR HYPOALB) 8.6 mg/dL (8.5-10.1); CREATININE 6.06 mg/dL (0.70-1.30); SODIUM 134 mmol/L (136-145); TOTAL PROTEIN 5.8 g/dL (6.4-8.2); eGFR NON BLACK RACES 11 (>60)
[2022-05-06] MEDS: CATAPRES TAB 0.2 MG PO SCH ×2 (05:58→22:02)
[2022-05-06] MEDS: APRESOLINE TAB 25 MG PO SCH ×3 (05:58→22:02)
[2022-05-06] MEDS ORDERED: ~Z-PAK 5 DAY (ZITHROMAX) PO ONE (06:40)
[2022-05-06] MEDS ORDERED: APRESOLINE INJ 20 MG VIAL IVP PRN (07:37)
--- NOTE | 2022-05-06 07:48 | RAD ---
HISTORYShortness of breathSTUDYChest AP [id number] is a left-sided central line with its tip in the expected position of superior vena cava. Heart size is normal. [place] are normal. Lung aguirre are clear. No pleural effusion or pneumothorax is identified. Bony thorax is unremarkable.IMPRESSIONLungs clearElectronically signed by: RANDAL SHELTON (May 06, 2022 07:47:11)
--- NOTE | 2022-05-06 07:52 | PCM.PROG ---
Progress Note Progress Note for Day of Date of Exam: 05/06/22 Subjective Subjective: Pt is a 52 year old male past medical history of Hypertension, CKD stage IV, admitted for Hypertension urgency, NSTEMI, Cocaine use, and Influenza A. This morning he does report feeling better. His blood pressure has responded to his home medications and cardene gtt has been weaned off. His home anti- hypertensive medications will need to be adjusted since his non-compliance. Elevated troponin level likely due to heart strain from drug abuse and hypertensive urgency is trending down. Will need another 24 hours of heparin gtt before he can be discharge. Labs/imaging: Wbc 8, Hgb 11.9, Plt 154, Na 134, K 3.8, Creatinine 6.06, Glucose 106, CXR: No focal infiltrate or effusion. Troponin: 325>193. He is currently receiving IV morphine prn for pain control, Tamiflu at renal dosing for Influenza A, and IVF NS@75ml/h. Home medications have been resumed and will adjust clonidine and hydralazine based on blood pressure. Pt does have productive sputum. Sputum cultures pending. Will start on antibiotics azithromycin. Will change IVF to KVO. Pt will need to follow up with his park interpreter outpatient. Otherwise will continue with current treatment plan. Continue to closely monitor and follow up labs/imaging. Time spent on clinical assessment, reviewing labs and imaging, decision making, and documentation greater than 45 minutes. Past Medical Family Social History Allergies: Allergies lisinopril Allergy (Verified 07/15/21 12:28) Review of Systems ROS: Changes notes (describe) (no chest pain or shortness of breath) Vital Signs and I&O's Vital Signs: Temperature 98.4 F Pulse Rate 65 Respiratory Rate 22 Blood Pressure [Right Arm] 184/97 Blood Pressure 107/53 O2 Sat by Pulse Oximetry 98 Intake and Output: Intake & Output 05/03/22 05/04/22 05/05/22 05/06/22 23:59 23:59 23:59 23:59 Intake Total 411.64 / 411.64 4868.36 / 4868.36 590 / 590 Output Total 1200 / 1200 400 / 400 Balance 411.64 / 411.64 3668.36 / 3668.36 190 / 190 Physical Exam Oriented: Normal Eyes: Normal Ear: Normal Nose: Normal Throat: Normal Cardiovascular: Normal : Normal Auscultation: Bowel Sounds: Normal Tenderness: Normal Skin: Normal Musculoskeletal: Normal Psychiatric: Normal Mood Description: Calm and Appropriate Affect: Normal Speech Pattern: Clear and Appropriate Laboratory and Diagnostics Result Diagrams: 05/06/22 04:10 05/06/22 04:10 Labs: 05/04/22 16:25 Blood Blood Culture - Preliminary 05/04/22 16:15 Blood Blood Culture - Preliminary 05/06/22 02:04 Sputum - Expectorated Sputum - Final Laboratory WBC 8.0 X10^3/uL (3.6-10.0) 05/06/22 04:10 RBC 3.82 X10^6/uL (4.7-6.0) L 05/06/22 04:10 Hgb 11.9 g/dL (13.5-18.0) L D 05/06/22 04:10 Hct 34.3 % (42.0-54.0) L 05/06/22 04:10 MCV 89.8 fL (80.0-100.0) 05/06/22 04:10 MCH 31.1 pg (27.0-34.0) 05/06/22 04:10 MCHC 34.6 g/dL (33.0-35.0) 05/06/22 04:10 RDW 13.8 % (11.6-16.5) 05/06/22 04:10 Plt Count 154 X10^3/uL (150.0-450.0) 05/06/22 04:10 MPV 10.1 fL (7.4-11.0) 05/06/22 04:10 Neut % (Auto) 79.2 % (42.0-75.0) H 05/06/22 04:10 Lymph % (Auto) 7.2 % (21.0-51.0) L 05/06/22 04:10 [place] % (Auto) 13.0 % (0.0-13.0) 05/06/22 04:10 Eos % (Auto) 0.2 % (0.9-2.9) L 05/06/22 04:10 Baso % (Auto) 0.4 % (0.2-1.0) 05/06/22 04:10 Neut # (Auto) 6.4 x10^3/uL (2.2-4.8) H 05/06/22 04:10 Lymph # (Auto) 0.6 X10^3/uL (1.3-2.9) L 05/06/22 04:10 [place] # (Auto) 1.0 x10^3/uL (0.3-0.8) H 05/06/22 04:10 Eos # (Auto) 0.0 x10^3/uL (0.0-0.2) 05/06/22 04:10 Baso # (Auto) 0.0 X10^3/uL (0.0-0.1) 05/06/22 04:10 Absolute Nucleated RBC 0.0 /100WBC 05/06/22 04:10 PT 14.3 SECONDS (11.8-14.3) 05/05/22 05:41 INR Target Range - 05/05/22 05:41 INR 1.14 (0.8-1.3) 05/05/22 05:41 APTT 85.5 SECONDS (22.9-36.5) H 05/06/22 05:45 PTT Comment - 05/06/22 05:45 D-Dimer 0.40 ug/ml (0.0-0.57) 05/04/22 16:15 Sample Site Lr 05/04/22 23:07 ABG pH 7.400 (7.35-7.45) 05/04/22 23:07 ABG pCO2 26.0 mmHg (35.0-45.0) L 05/04/22 23:07 ABG pO2 57.0 mmHg (80.0-100.0) L 05/04/22 23:07 ABG HCO3 16.1 mmol/L (22-26) L* 05/04/22 23:07 ABG O2 Saturation 89.0 % (90-100) L 05/04/22 23:07 ABG Base Excess -7.2 mmol/L (-2.0-2.0) L 05/04/22 23:07 Harsha Test Pos 05/04/22 23:07 A-a Gradient 60.0 mmHg 05/04/22 23:07 FiO2 21.0 05/04/22 23:07 Blood Gas Comments Dc well ae 05/04/22 23:07 Sodium 134 mmol/L (136-145) L 05/06/22 04:10 Corrected Sodium TNP 05/06/22 04:10 Potassium 3.8 mmol/L (3.5-5.1) 05/06/22 04:10 Chloride 106 mmol/L (98-107) 05/06/22 04:10 Carbon Dioxide 15.9 mmol/L (21-32) L 05/06/22 04:10 BUN 49 mg/dL (7-18) H 05/06/22 04:10 Creatinine 6.06 mg/dL (0.70-1.30) H 05/06/22 04:10 Est GFR (MDRD) Af Amer 13 (>60) L 05/06/22 04:10 Est GFR (MDRD) Non-Af 11 (>60) L 05/06/22 04:10 Glucose 106 mg/dL (65-99) H 05/06/22 04:10 Calcium 7.5 mg/dL (8.5-10.1) L 05/06/22 04:10 Corrected Calcium 8.6 mg/dL (8.5-10.1) 05/06/22 04:10 Ferritin 257 ng/mL (26-388) 05/04/22 16:15 Total Bilirubin 0.30 mg/dL (0.2-1.0) 05/06/22 04:10 AST 30 Units/L (15-37) 05/06/22 04:10 ALT 26 Units/L (12-78) 05/06/22 04:10 Alkaline Phosphatase 44 Units/L (46-116) L 05/06/22 04:10 Creatine Kinase 989 Units/L (39-308) H 05/05/22 14:30 CK-MB (CK-2) 2.1 ng/mL (0-4.0) 05/05/22 14:30 CK/CKMB % Calc 0.2 % (<4) 05/05/22 14:30 Troponin I High Sens 193.1 ng/L (4.0-60.0) H* 05/06/22 04:10 C-Reactive Protein 6.50 mg/L (0-3.0) H 05/04/22 16:15 Total Protein 5.8 g/dL (6.4-8.2) L 05/06/22 04:10 Albumin 2.6 g/dL (3.4-5.0) L 05/06/22 04:10 Globulin 3.2 g/dL (2.5-4.5) 05/06/22 04:10 Albumin/Globulin Ratio 0.8 Ratio (1.1-2.1) L 05/06/22 04:10 Specimen Type Clean catch urine 05/04/22 18:35 Urine Color Yellow (YELLOW) 05/04/22 18:35 Urine Appearance Clear (CLEAR) 05/04/22 18:35 Urine pH 6.0 (5.0 - 8.0) 05/04/22 18:35 Ur Specific [place] 1.020 (1.000-1.030) 05/04/22 18:35 Urine Protein 4+ (NEGATIVE) 05/04/22 18:35 Urine Glucose (UA) 2+ (NEGATIVE) 05/04/22 18:35 Urine Ketones 1+ (NEGATIVE) 05/04/22 18:35 Urine Blood 3+ (NEGATIVE) 05/04/22 18:35 Urine Nitrite Negative (NEGATIVE) 05/04/22 18:35 Urine Bilirubin Negative (NEGATIVE) 05/04/22 18:35 Urine Urobilinogen Normal (NORMAL) 05/04/22 18:35 Ur Leukocyte Esterase Negative (NEGATIVE) 05/04/22 18:35 Urine RBC 0-2 /HPF (0-3) 05/04/22 18:35 Urine WBC 0-2 /HPF (0-5) 05/04/22 18:35 Ur Squamous Epith Cells Rare /HPF (NEGATIVE) 05/04/22 18:35 Amorphous Sediment 1+ /HPF (NEGATIVE) 05/04/22 18:35 Urine Bacteria Trace /HPF (NEGATIVE) 05/04/22 18:35 Granular Casts Few /LPF (NEGATIVE) 05/04/22 18:35 Ur Culture Indicated? No/not indicated 05/04/22 18:35 Urine Opiates Screen Negative (NEG=<300) 05/04/22 18:35 Urine Methadone Screen Negative (NEG=<300) 05/04/22 18:35 Ur Barbiturates Screen Negative (NEG=<200) 05/04/22 18:35 Ur Phencyclidine Scrn Negative (NEG=<25) 05/04/22 18:35 Ur Amphetamines Screen Negative (NEG=<1000) 05/04/22 18:35 U Benzodiazepines Scrn Negative (NEG=<200) 05/04/22 18:35 Urine Cocaine Screen Positive (NEG=<300) 05/04/22 18:35 U Marijuana (THC) Screen Positive (NEG=<50) A 05/04/22 18:35 SARS-CoV-2 (PCR) Negative (NEGATIVE) 05/04/22 18:29 Influenza Type A (PCR) Positive (NEGATIVE) A 05/04/22 18:29 Influenza Type B (PCR) Negative (NEGATIVE) 05/04/22 18:29 RSV (PCR) Negative (NEGATIVE) 05/04/22 18:29 Plan (1) Hypertensive urgency: Status: Acute (2) Chest pain: Status: Acute Qualifiers: Chest pain type: unspecified Qualified Code(s): R07.9 - Chest pain, unspecified (3) CKD (chronic kidney disease) stage 4, GFR 15-29 ml/min: Status: Acute (4) Influenza A: Status: Acute (5) Cocaine abuse: Status: Acute (6) NSTEMI (non-ST elevated myocardial infarction): Status: Acute
[2022-05-06] MEDS ORDERED: TOPROL XL PO ONE (08:12)
[2022-05-06] MEDS: NICOTINE PATCH TD SCH (08:25)
[2022-05-06] MEDS: TOPROL XL PO SCH (08:26)
[2022-05-06] MEDS: TAMIFLU PO SCH (08:26)
[2022-05-06] MEDS: MORPHINE SULFATE INJ 2 MG INJ IVP PRN ×2 (13:47→22:00)
[2022-05-06] MEDS: HEPARIN SODIUM IN D5W 25,000 UNITS/500 ML BAG IV PRN (16:49)
[2022-05-06] MEDS: TESSALON PERLES PO PRN (22:02)
[2022-05-06] MEDS: COLACE CAP 100 MG PO SCH (22:03)
[2022-05-06] MEDS: ZOFRAN INJ 4 MG VIAL IVP PRN (22:10)
[2022-05-06] MEDS ORDERED: CHLORASEPTIC SPRAY MT PRN (23:00)
[2022-05-07 05:13] LABS: BASOPHILS % (AUTO) 0.4 % (0.2-1.0); EOSINOPHILS % (AUTO) 0.3 % (0.9-2.9); HEMATOCRIT 32.1 % (42.0-54.0); HEMOGLOBIN 11.1 g/dL (13.5-18.0); LYMPHOCYTES # (AUTO) 0.7 X10^3/uL (1.3-2.9); MEAN CORPUSCULAR HEMOGLOBIN 30.9 pg (27.0-34.0); MEAN CORPUSCULAR HGB CONC 34.6 g/dL (33.0-35.0); MEAN CORPUSCULAR VOLUME 89.5 fL (80.0-100.0); MEAN PLATELET VOLUME 10.7 fL (7.4-11.0); MONOCYTES # (AUTO) 1.2 x10^3/uL (0.3-0.8); MONOCYTES % (AUTO) 13.3 % (0.0-13.0); RED BLOOD COUNT 3.58 X10^6/uL (4.7-6.0); RED CELL DISTRIBUTION WIDTH 14.2 % (11.6-16.5)
[2022-05-07 05:23] LABS: ALANINE AMINOTRANSFERASE 26 Units/L (12-78); ALBUMIN 2.4 g/dL (3.4-5.0); ALKALINE PHOSPHATASE 41 Units/L (46-116); ASPARTATE AMINO TRANSFERASE 25 Units/L (15-37); BLOOD UREA NITROGEN 50 mg/dL (7-18); CALCIUM 7.7 mg/dL (8.5-10.1); CARBON DIOXIDE 17.9 mmol/L (21-32); CHLORIDE 106 mmol/L (98-107); CREATININE 5.98 mg/dL (0.70-1.30); SODIUM 136 mmol/L (136-145); TOTAL PROTEIN 5.8 g/dL (6.4-8.2); eGFR NON BLACK RACES 11 (>60)
[2022-05-07] MEDS: NS 1,000 ML IV 1,000 ML IV SCH ×2 (05:26→20:50)
[2022-05-07] MEDS: ROBITUSSIN DM PO PRN ×3 (05:28→20:33)
[2022-05-07] MEDS ORDERED: HEPARIN SODIUM INJ 5000 UNITS IVP ONE (06:15)
[2022-05-07] MEDS ORDERED: TOPROL XL PO ONE (08:18)
[2022-05-07] MEDS: TUSSIONEX PENNKINETIC SUSP PO PRN (08:29)
[2022-05-07] MEDS: APRESOLINE TAB 25 MG PO SCH ×2 (08:29→20:34)
[2022-05-07] MEDS: NICOTINE PATCH TD SCH (08:29)
[2022-05-07] MEDS: TOPROL XL PO SCH (08:29)
[2022-05-07] MEDS: CATAPRES TAB 0.2 MG PO SCH ×2 (08:30→20:36)
[2022-05-07] MEDS: TAMIFLU PO SCH (08:32)
[2022-05-07] MEDS ORDERED: NITROSTAT SL PRN (08:46)
[2022-05-07 08:50] LABS: CKMB % 0.2 % (<4); CREATINE KINASE MB 1.4 ng/mL (0-4.0)
[2022-05-07] MEDS: ASPIRIN 81 MG CHEWTAB PO SCH (10:27)
[2022-05-07] MEDS: MORPHINE SULFATE INJ 2 MG INJ IVP PRN ×2 (13:17→18:49)
--- NOTE | 2022-05-07 13:29 | PCM.PROG ---
Progress Note Progress Note for Day of Date of Exam: 05/07/22 Subjective Subjective: Pt is a 52 year old male past medical history of Hypertension, CKD stage IV, admitted for Hypertension urgency, NSTEMI, Cocaine use, and Influenza A. This morning he is reporting some chest pain again that feels like a heavy pressure on top of his chest. I had the nurses to repeat cardiac enzymes and his troponins were negative. EKG shows inverted T waves in inferior leads II, III and aVF. Patient's creatinine has improved since yesterday. His creatinine today is 5.98 down from just over 6. Patient does report seeing a head of academic technology Dr. Quintero as outpatient. We will continue to run serial cardiac enzymes and EKGs. Past Medical Family Social History Allergies: Allergies lisinopril Allergy (Verified 07/15/21 12:28) Review of Systems ROS: Changes notes (describe) (no chest pain or shortness of breath) Vital Signs and I&O's Vital Signs: Temperature 98.4 F Pulse Rate 57 Respiratory Rate 38 Blood Pressure [Right Arm] 184/97 Blood Pressure 99/57 O2 Sat by Pulse Oximetry 93 Intake and Output: Intake & Output 05/05/22 05/06/22 05/07/22 05/08/22 11:59 11:59 11:59 11:59 Intake Total 1620.00 / 1620.00 4250 / 4250 2863 / 2863 Output Total 400 / 400 1200 / 1200 1300 / 1300 Balance 1220.00 / 1220.00 3050 / 3050 1563 / 1563 Physical Exam Oriented: Normal Eyes: Normal Ear: Normal Nose: Normal Throat: Normal Respiratory: Normal Cardiovascular: Normal : Normal Auscultation: Bowel Sounds: Normal Palpation: Normal Tenderness: Normal Skin: Normal Musculoskeletal: Normal Psychiatric: Normal Mood Description: Calm and Appropriate Affect: Normal Speech Pattern: Clear and Appropriate Laboratory and Diagnostics Result Diagrams: 05/07/22 04:15 05/07/22 04:15 Labs: 05/06/22 02:04 Sputum - Expectorated Sputum Sputum Culture - Preliminary 05/06/22 02:04 Sputum - Expectorated Sputum - Final 05/04/22 16:25 Blood Blood Culture - Preliminary 05/04/22 16:15 Blood Blood Culture - Preliminary Laboratory WBC 9.0 X10^3/uL (3.6-10.0) 05/07/22 04:15 RBC 3.58 X10^6/uL (4.7-6.0) L 05/07/22 04:15 Hgb 11.1 g/dL (13.5-18.0) L 05/07/22 04:15 Hct 32.1 % (42.0-54.0) L 05/07/22 04:15 MCV 89.5 fL (80.0-100.0) 05/07/22 04:15 MCH 30.9 pg (27.0-34.0) 05/07/22 04:15 MCHC 34.6 g/dL (33.0-35.0) 05/07/22 04:15 RDW 14.2 % (11.6-16.5) 05/07/22 04:15 Plt Count 163 X10^3/uL (150.0-450.0) 05/07/22 04:15 MPV 10.7 fL (7.4-11.0) 05/07/22 04:15 Neut % (Auto) 78.0 % (42.0-75.0) H 05/07/22 04:15 Lymph % (Auto) 8.0 % (21.0-51.0) L 05/07/22 04:15 [place] % (Auto) 13.3 % (0.0-13.0) H 05/07/22 04:15 Eos % (Auto) 0.3 % (0.9-2.9) L 05/07/22 04:15 Baso % (Auto) 0.4 % (0.2-1.0) 05/07/22 04:15 Neut # (Auto) 7.0 x10^3/uL (2.2-4.8) H 05/07/22 04:15 Lymph # (Auto) 0.7 X10^3/uL (1.3-2.9) L 05/07/22 04:15 [place] # (Auto) 1.2 x10^3/uL (0.3-0.8) H 05/07/22 04:15 Eos # (Auto) 0.0 x10^3/uL (0.0-0.2) 05/07/22 04:15 Baso # (Auto) 0.0 X10^3/uL (0.0-0.1) 05/07/22 04:15 Absolute Nucleated RBC 0.0 /100WBC 05/07/22 04:15 PT 14.3 SECONDS (11.8-14.3) 05/05/22 05:41 INR Target Range - 05/05/22 05:41 INR 1.14 (0.8-1.3) 05/05/22 05:41 APTT 95.0 SECONDS (22.9-36.5) H 05/07/22 12:03 PTT Comment - 05/07/22 12:03 D-Dimer 0.40 ug/ml (0.0-0.57) 05/04/22 16:15 Sample Site Lr 05/04/22 23:07 ABG pH 7.400 (7.35-7.45) 05/04/22 23:07 ABG pCO2 26.0 mmHg (35.0-45.0) L 05/04/22 23:07 ABG pO2 57.0 mmHg (80.0-100.0) L 05/04/22 23:07 ABG HCO3 16.1 mmol/L (22-26) L* 05/04/22 23:07 ABG O2 Saturation 89.0 % (90-100) L 05/04/22 23:07 ABG Base Excess -7.2 mmol/L (-2.0-2.0) L 05/04/22 23:07 Harsha Test Pos 05/04/22 23:07 A-a Gradient 60.0 mmHg 05/04/22 23:07 FiO2 21.0 05/04/22 23:07 Blood Gas Comments Dc well ae 05/04/22 23:07 Sodium 136 mmol/L (136-145) 05/07/22 04:15 Corrected Sodium TNP 05/07/22 04:15 Potassium 3.9 mmol/L (3.5-5.1) 05/07/22 04:15 Chloride 106 mmol/L (98-107) 05/07/22 04:15 Carbon Dioxide 17.9 mmol/L (21-32) L 05/07/22 04:15 BUN 50 mg/dL (7-18) H 05/07/22 04:15 Creatinine 5.98 mg/dL (0.70-1.30) H 05/07/22 04:15 Est GFR (MDRD) Af Amer 13 (>60) L 05/07/22 04:15 Est GFR (MDRD) Non-Af 11 (>60) L 05/07/22 04:15 Glucose 94 mg/dL (65-99) 05/07/22 04:15 Calcium 7.7 mg/dL (8.5-10.1) L 05/07/22 04:15 Corrected Calcium 9.0 mg/dL (8.5-10.1) 05/07/22 04:15 Ferritin 257 ng/mL (26-388) 05/04/22 16:15 Total Bilirubin 0.40 mg/dL (0.2-1.0) 05/07/22 04:15 AST 25 Units/L (15-37) 05/07/22 04:15 ALT 26 Units/L (12-78) 05/07/22 04:15 Alkaline Phosphatase 41 Units/L (46-116) L 05/07/22 04:15 Creatine Kinase 689 Units/L (39-308) H 05/07/22 08:05 CK-MB (CK-2) 1.4 ng/mL (0-4.0) 05/07/22 08:05 CK/CKMB % Calc 0.2 % (<4) 05/07/22 08:05 Troponin I High Sens 43.6 ng/L (4.0-60.0) 05/07/22 08:05 C-Reactive Protein 6.50 mg/L (0-3.0) H 05/04/22 16:15 Total Protein 5.8 g/dL (6.4-8.2) L 05/07/22 04:15 Albumin 2.4 g/dL (3.4-5.0) L 05/07/22 04:15 Globulin 3.4 g/dL (2.5-4.5) 05/07/22 04:15 Albumin/Globulin Ratio 0.7 Ratio (1.1-2.1) L 05/07/22 04:15 Specimen Type Clean catch urine 05/04/22 18:35 Urine Color Yellow (YELLOW) 05/04/22 18:35 Urine Appearance Clear (CLEAR) 05/04/22 18:35 Urine pH 6.0 (5.0 - 8.0) 05/04/22 18:35 Ur Specific [place] 1.020 (1.000-1.030) 05/04/22 18:35 Urine Protein 4+ (NEGATIVE) 05/04/22 18:35 Urine Glucose (UA) 2+ (NEGATIVE) 05/04/22 18:35 Urine Ketones 1+ (NEGATIVE) 05/04/22 18:35 Urine Blood 3+ (NEGATIVE) 05/04/22 18:35 Urine Nitrite Negative (NEGATIVE) 05/04/22 18:35 Urine Bilirubin Negative (NEGATIVE) 05/04/22 18:35 Urine Urobilinogen Normal (NORMAL) 05/04/22 18:35 Ur Leukocyte Esterase Negative (NEGATIVE) 05/04/22 18:35 Urine RBC 0-2 /HPF (0-3) 05/04/22 18:35 Urine WBC 0-2 /HPF (0-5) 05/04/22 18:35 Ur Squamous Epith Cells Rare /HPF (NEGATIVE) 05/04/22 18:35 Amorphous Sediment 1+ /HPF (NEGATIVE) 05/04/22 18:35 Urine Bacteria Trace /HPF (NEGATIVE) 05/04/22 18:35 Granular Casts Few /LPF (NEGATIVE) 05/04/22 18:35 Ur Culture Indicated? No/not indicated 05/04/22 18:35 Urine Opiates Screen Negative (NEG=<300) 05/04/22 18:35 Urine Methadone Screen Negative (NEG=<300) 05/04/22 18:35 Ur Barbiturates Screen Negative (NEG=<200) 05/04/22 18:35 Ur Phencyclidine Scrn Negative (NEG=<25) 05/04/22 18:35 Ur Amphetamines Screen Negative (NEG=<1000) 05/04/22 18:35 U Benzodiazepines Scrn Negative (NEG=<200) 05/04/22 18:35 Urine Cocaine Screen Positive (NEG=<300) 05/04/22 18:35 U Marijuana (THC) Screen Positive (NEG=<50) A 05/04/22 18:35 SARS-CoV-2 (PCR) Negative (NEGATIVE) 05/04/22 18:29 Influenza Type A (PCR) Positive (NEGATIVE) A 05/04/22 18: Influenza Type B (PCR) Negative (NEGATIVE) 05/04/22 18: RSV (PCR) Negative (NEGATIVE) 05/04/22 18:29 Radiology Reviewed: Yes EKG Reviewed: Yes Compared to prior EKG Dated: 05/06/22 Rate: 65 Rhythm: NSR ST: Inf and Ischemia Plan (1) Hypertensive urgency: Status: Acute Narrative Support Text: The patient's blood pressure is down back to normal. Plan: Continue to monitor blood pressure (2) Chest pain: Status: Acute Qualifiers: Chest pain type: unspecified Qualified Code(s): R07.9 - Chest pain, unspecified Plan: I will order nitroglycerin tablet 0.4 mg sublingual as needed chest pain. Next check cardiac enzymes and serial EKGs as well (3) CKD (chronic kidney disease) stage 4, GFR 15-29 ml/min: Status: Acute Plan: Improved creatinine since yesterday. (4) Influenza A: Status: Acute (5) Cocaine abuse: Status: Acute (6) NSTEMI (non-ST elevated myocardial infarction): Status: Acute Plan: Continue to monitor patient with serial cardiac enzymes and EKGs. Continue supplemental O2. Nitroglycerin for chest pain and as needed morphine if needed for pain.
[2022-05-07 15:26] LABS: CKMB % 0.2 % (<4); CREATINE KINASE MB 1.2 ng/mL (0-4.0)
[2022-05-07] MEDS: HEPARIN SODIUM IN D5W 25,000 UNITS/500 ML BAG IV PRN (18:42)
[2022-05-07] MEDS: COLACE CAP 100 MG PO SCH (20:40)
[2022-05-07 21:15] LABS: CKMB % 0.3 % (<4); CREATINE KINASE MB 2.1 ng/mL (0-4.0)
[2022-05-08] MEDS ORDERED: HEPARIN SODIUM INJ 5000 UNITS IVP ONE (01:42)
[2022-05-08 05:42] LABS: BASOPHILS % (AUTO) 0.3 % (0.2-1.0); EOSINOPHILS # (AUTO) 0.1 x10^3/uL (0.0-0.2); EOSINOPHILS % (AUTO) 1.9 % (0.9-2.9); HEMATOCRIT 31.3 % (42.0-54.0); HEMOGLOBIN 10.7 g/dL (13.5-18.0); LYMPHOCYTES # (AUTO) 0.8 X10^3/uL (1.3-2.9); LYMPHOCYTES % (AUTO) 10.6 % (21.0-51.0); MEAN CORPUSCULAR HEMOGLOBIN 30.7 pg (27.0-34.0); MEAN CORPUSCULAR HGB CONC 34.2 g/dL (33.0-35.0); MEAN CORPUSCULAR VOLUME 89.8 fL (80.0-100.0); MEAN PLATELET VOLUME 11.1 fL (7.4-11.0); MONOCYTES # (AUTO) 0.8 x10^3/uL (0.3-0.8); MONOCYTES % (AUTO) 11.2 % (0.0-13.0); NEUTROPHILS # (AUTO) 5.6 x10^3/uL (2.2-4.8); RED BLOOD COUNT 3.49 X10^6/uL (4.7-6.0); WHITE BLOOD COUNT 7.4 X10^3/uL (3.6-10.0)
--- NOTE | 2022-05-08 05:50 | RAD ---
HISTORYINFLUEZA, PRODUCTIVE COUGHSTUDYCHEST, 1 [id number]/01/2022, 09/01/2020 and 11/23/2019.FINDINGSThe trachea is midline. The cardiac silhouette is within normal limits. Pulmonary arteries are prominent in size bilaterally similar to comparison studies dating back to at least November 2019. The lungs are clear without focal infiltrate or effusion. The bony thorax is unremarkable.IMPRESSIONNo acute cardiopulmonary findings .Electronically signed by: BRIAN CARPIO (May 08, 2022 05:49:05)
[2022-05-08 06:01] LABS: ALANINE AMINOTRANSFERASE 25 Units/L (12-78); ALBUMIN 2.2 g/dL (3.4-5.0); ALKALINE PHOSPHATASE 47 Units/L (46-116); ASPARTATE AMINO TRANSFERASE 24 Units/L (15-37); BLOOD UREA NITROGEN 49 mg/dL (7-18); CALCIUM 7.6 mg/dL (8.5-10.1); CARBON DIOXIDE 18.1 mmol/L (21-32); CHLORIDE 107 mmol/L (98-107); CREATININE 5.73 mg/dL (0.70-1.30); SODIUM 136 mmol/L (136-145); TOTAL PROTEIN 5.7 g/dL (6.4-8.2); eGFR NON BLACK RACES 11 (>60)
[2022-05-08] MEDS ORDERED: TOPROL XL PO ONE (08:47)
[2022-05-08] MEDS: NICOTINE PATCH TD SCH (08:51)
[2022-05-08] MEDS: ASPIRIN 81 MG CHEWTAB PO SCH (08:51)
[2022-05-08] MEDS: APRESOLINE TAB 25 MG PO SCH ×2 (08:51→20:08)
[2022-05-08] MEDS: CATAPRES TAB 0.2 MG PO SCH ×2 (08:51→20:08)
[2022-05-08] MEDS: TOPROL XL PO SCH (08:52)
[2022-05-08] MEDS: MORPHINE SULFATE INJ 2 MG INJ IVP PRN ×2 (08:53→18:15)
[2022-05-08] MEDS: TAMIFLU PO SCH (09:04)
[2022-05-08] MEDS: NS 1,000 ML IV 1,000 ML IV SCH (10:32)
[2022-05-08] MEDS: TUSSIONEX PENNKINETIC SUSP PO PRN (18:17)
--- NOTE | 2022-05-08 18:41 | PCM.PROG ---
Progress Note Progress Note for Day of Date of Exam: 05/08/22 Subjective Subjective: Pt is a 52 year old male past medical history of Hypertension, CKD stage IV, admitted for Hypertension urgency, NSTEMI, Cocaine use, and Influenza A. The patient's EKGs and cardiac enzymes are negative since yesterday. He still having some chest congestion today he reports. Since he is better unguinal go ahead and move to the floor and continue treatment. Past Medical Family Social History Allergies: Allergies lisinopril Allergy (Verified 07/15/21 12:28) Review of Systems ROS: Changes notes (describe) (no chest pain or shortness of breath) Vital Signs and I&O's Vital Signs: Temperature 98.7 F Pulse Rate [Right Radial] 58 Pulse Rate 55 Respiratory Rate 18 Blood Pressure [Right Arm] 135/79 Blood Pressure 116/55 O2 Sat by Pulse Oximetry 96 Intake and Output: Intake & Output 05/06/22 05/07/22 05/08/22 05/09/22 11:59 11:59 11:59 11:59 Intake Total 4250 / 4250 2863 / 2863 2239 / 2239 831 / 831 Output Total 1200 / 1200 1300 / 1300 575 / 575 500 / 500 Balance 3050 / 3050 1563 / 1563 1664 / 1664 331 / 331 Physical Exam Oriented: Normal Eyes: Normal Ear: Normal Nose: Normal Throat: Normal Respiratory: Generalized and Diminished Cardiovascular: Normal : Normal Auscultation: Bowel Sounds: Normal Tenderness: Normal Skin: Normal Musculoskeletal: Normal Psychiatric: Normal Mood Description: Calm and Appropriate Affect: Normal Speech Pattern: Clear and Appropriate Laboratory and Diagnostics Result Diagrams: 05/08/22 04:03 05/08/22 04:03 Labs: 05/06/22 02:04 Sputum - Expectorated Sputum Sputum Culture - Final 05/06/22 02:04 Sputum - Expectorated Sputum - Final 05/04/22 16:25 Blood Blood Culture - Preliminary 05/04/22 16:15 Blood Blood Culture - Preliminary Laboratory WBC 7.4 X10^3/uL (3.6-10.0) 05/08/22 04:03 RBC 3.49 X10^6/uL (4.7-6.0) L 05/08/22 04:03 Hgb 10.7 g/dL (13.5-18.0) L 05/08/22 04:03 Hct 31.3 % (42.0-54.0) L 05/08/22 04:03 MCV 89.8 fL (80.0-100.0) 05/08/22 04:03 MCH 30.7 pg (27.0-34.0) 05/08/22 04:03 MCHC 34.2 g/dL (33.0-35.0) 05/08/22 04:03 RDW 14.0 % (11.6-16.5) 05/08/22 04:03 Plt Count 171 X10^3/uL (150.0-450.0) 05/08/22 04:03 MPV 11.1 fL (7.4-11.0) H 05/08/22 04:03 Neut % (Auto) 76.0 % (42.0-75.0) H 05/08/22 04:03 Lymph % (Auto) 10.6 % (21.0-51.0) L 05/08/22 04:03 Gage % (Auto) 11.2 % (0.0-13.0) 05/08/22 04:03 Eos % (Auto) 1.9 % (0.9-2.9) 05/08/22 04:03 Baso % (Auto) 0.3 % (0.2-1.0) 05/08/22 04:03 Neut # (Auto) 5.6 x10^3/uL (2.2-4.8) H 05/08/22 04:03 Lymph # (Auto) 0.8 X10^3/uL (1.3-2.9) L 05/08/22 04:03 Gage # (Auto) 0.8 x10^3/uL (0.3-0.8) 05/08/22 04:03 Eos # (Auto) 0.1 x10^3/uL (0.0-0.2) 05/08/22 04:03 Baso # (Auto) 0.0 X10^3/uL (0.0-0.1) 05/08/22 04:03 Absolute Nucleated RBC 0.0 /100WBC 05/08/22 04:03 PT 14.3 SECONDS (11.8-14.3) 05/05/22 05:41 INR Target Range - 05/05/22 05:41 INR 1.14 (0.8-1.3) 05/05/22 05:41 APTT 57.5 SECONDS (22.9-36.5) H 05/08/22 01:01 PTT Comment - 05/08/22 01:01 D-Dimer 0.40 ug/ml (0.0-0.57) 05/04/22 16:15 Sample Site Lr 05/04/22 23:07 ABG pH 7.400 (7.35-7.45) 05/04/22 23:07 ABG pCO2 26.0 mmHg (35.0-45.0) L 05/04/22 23:07 ABG pO2 57.0 mmHg (80.0-100.0) L 05/04/22 23:07 ABG HCO3 16.1 mmol/L (22-26) L* 05/04/22 23:07 ABG O2 Saturation 89.0 % (90-100) L 05/04/22 23:07 ABG Base Excess -7.2 mmol/L (-2.0-2.0) L 05/04/22 23:07 Harsha Test Pos 05/04/22 23:07 A-a Gradient 60.0 mmHg 05/04/22 23:07 FiO2 21.0 05/04/22 23:07 Blood Gas Comments Dc well ae 05/04/22 23:07 Sodium 136 mmol/L (136-145) 05/08/22 04:03 Corrected Sodium TNP 05/08/22 04:03 Potassium 3.9 mmol/L (3.5-5.1) 05/08/22 04:03 Chloride 107 mmol/L (98-107) 05/08/22 04:03 Carbon Dioxide 18.1 mmol/L (21-32) L 05/08/22 04:03 BUN 49 mg/dL (7-18) H 05/08/22 04:03 Creatinine 5.73 mg/dL (0.70-1.30) H 05/08/22 04:03 Est GFR (MDRD) Af Amer 14 (>60) L 05/08/22 04:03 Est GFR (MDRD) Non-Af 11 (>60) L 05/08/22 04:03 Glucose 87 mg/dL (65-99) 05/08/22 04:03 Calcium 7.6 mg/dL (8.5-10.1) L 05/08/22 04:03 Corrected Calcium 9.0 mg/dL (8.5-10.1) 05/08/22 04:03 Ferritin 257 ng/mL (26-388) 05/04/22 16:15 Total Bilirubin 0.30 mg/dL (0.2-1.0) 05/08/22 04:03 AST 24 Units/L (15-37) 05/08/22 04:03 ALT 25 Units/L (12-78) 05/08/22 04:03 Alkaline Phosphatase 47 Units/L (46-116) 05/08/22 04:03 Creatine Kinase 633 Units/L (39-308) H 05/07/22 20:34 CK-MB (CK-2) 2.1 ng/mL (0-4.0) 05/07/22 20:34 CK/CKMB % Calc 0.3 % (<4) 05/07/22 20:34 Troponin I High Sens 32.7 ng/L (4.0-60.0) 05/07/22 20:34 C-Reactive Protein 6.50 mg/L (0-3.0) H 05/04/22 16:15 Total Protein 5.7 g/dL (6.4-8.2) L 05/08/22 04:03 Albumin 2.2 g/dL (3.4-5.0) L 05/08/22 04:03 Globulin 3.5 g/dL (2.5-4.5) 05/08/22 04:03 Albumin/Globulin Ratio 0.6 Ratio (1.1-2.1) L 05/08/22 04:03 Specimen Type Clean catch urine 05/04/22 18:35 Urine Color Yellow (YELLOW) 05/04/22 18:35 Urine Appearance Clear (CLEAR) 05/04/22 18:35 Urine pH 6.0 (5.0 - 8.0) 05/04/22 18:35 Ur Specific [place] 1.020 (1.000-1.030) 05/04/22 18:35 Urine Protein 4+ (NEGATIVE) 05/04/22 18:35 Urine Glucose (UA) 2+ (NEGATIVE) 05/04/22 18:35 Urine Ketones 1+ (NEGATIVE) 05/04/22 18:35 Urine Blood 3+ (NEGATIVE) 05/04/22 18:35 Urine Nitrite Negative (NEGATIVE) 05/04/22 18:35 Urine Bilirubin Negative (NEGATIVE) 05/04/22 18:35 Urine Urobilinogen Normal (NORMAL) 05/04/22 18:35 Ur Leukocyte Esterase Negative (NEGATIVE) 05/04/22 18:35 Urine RBC 0-2 /HPF (0-3) 05/04/22 18:35 Urine WBC 0-2 /HPF (0-5) 05/04/22 18:35 Ur Squamous Epith Cells Rare /HPF (NEGATIVE) 05/04/22 18:35 Amorphous Sediment 1+ /HPF (NEGATIVE) 05/04/22 18:35 Urine Bacteria Trace /HPF (NEGATIVE) 05/04/22 18:35 Granular Casts Few /LPF (NEGATIVE) 05/04/22 18:35 Ur Culture Indicated? No/not indicated 05/04/22 18:35 Urine Opiates Screen Negative (NEG=<300) 05/04/22 18:35 Urine Methadone Screen Negative (NEG=<300) 05/04/22 18:35 Ur Barbiturates Screen Negative (NEG=<200) 05/04/22 18:35 Ur Phencyclidine Scrn Negative (NEG=<25) 05/04/22 18:35 Ur Amphetamines Screen Negative (NEG=<1000) 05/04/22 18:35 U Benzodiazepines Scrn Negative (NEG=<200) 05/04/22 18:35 Urine Cocaine Screen Positive (NEG=<300) 05/04/22 18:35 U Marijuana (THC) Screen Positive (NEG=<50) A 05/04/22 18:35 SARS-CoV-2 (PCR) Negative (NEGATIVE) 05/04/22 18:29 Influenza Type A (PCR) Positive (NEGATIVE) A 05/04/22 18:29 Influenza Type B (PCR) Negative (NEGATIVE) 05/04/22 18: RSV (PCR) Negative (NEGATIVE) 05/04/22 18:29 Plan (1) Hypertensive urgency: Status: Resolved Narrative Support Text: Patient's hypertensive urgency has resolved now Plan: Continue to monitor blood pressure (2) Chest pain: Status: Acute Qualifiers: Chest pain type: unspecified Qualified Code(s): R07.9 - Chest pain, unspecified Narrative Support Text: Chest pain is better since yesterday Plan: I will order nitroglycerin tablet 0.4 mg sublingual as needed chest pain. Next check cardiac enzymes and serial EKGs as well (3) CKD (chronic kidney disease) stage 4, GFR 15-29 ml/min: Status: Acute Plan: Improved creatinine since yesterday. (4) Influenza A: Status: Acute Plan: Nebs. (5) Cocaine abuse: Status: Acute Plan: Counseled patient about using illicit drugs. (6) NSTEMI (non-ST elevated myocardial infarction): Status: Acute Plan: Continue to monitor patient with serial cardiac enzymes and EKGs. C ontinue supplemental O2. Nitroglycerin for chest pain and as needed morphine if needed for pain.
[2022-05-08] MEDS: TESSALON PERLES PO PRN (20:08)
[2022-05-08] MEDS: ROBITUSSIN DM PO PRN (20:08)
[2022-05-08] MEDS: COLACE CAP 100 MG PO SCH (20:08)
[2022-05-09] MEDS: NS 1,000 ML IV 1,000 ML IV SCH ×3 (00:49→14:00)
[2022-05-09 04:56] LABS: BASOPHILS % (AUTO) 0.5 % (0.2-1.0); EOSINOPHILS # (AUTO) 0.1 x10^3/uL (0.0-0.2); EOSINOPHILS % (AUTO) 1.8 % (0.9-2.9); HEMATOCRIT 31.4 % (42.0-54.0); HEMOGLOBIN 10.7 g/dL (13.5-18.0); LYMPHOCYTES # (AUTO) 0.6 X10^3/uL (1.3-2.9); LYMPHOCYTES % (AUTO) 7.6 % (21.0-51.0); MEAN CORPUSCULAR HEMOGLOBIN 30.3 pg (27.0-34.0); MEAN CORPUSCULAR HGB CONC 34.1 g/dL (33.0-35.0); MEAN CORPUSCULAR VOLUME 88.9 fL (80.0-100.0); MEAN PLATELET VOLUME 9.3 fL (7.4-11.0); MONOCYTES % (AUTO) 12.7 % (0.0-13.0); NEUTROPHILS # (AUTO) 6.3 x10^3/uL (2.2-4.8); NEUTROPHILS % (AUTO) 77.4 % (42.0-75.0); RED BLOOD COUNT 3.54 X10^6/uL (4.7-6.0); RED CELL DISTRIBUTION WIDTH 14.3 % (11.6-16.5); WHITE BLOOD COUNT 8.1 X10^3/uL (3.6-10.0)
[2022-05-09 05:06] LABS: ALANINE AMINOTRANSFERASE 25 Units/L (12-78); ALBUMIN 2.4 g/dL (3.4-5.0); ALKALINE PHOSPHATASE 61 Units/L (46-116); ASPARTATE AMINO TRANSFERASE 27 Units/L (15-37); BLOOD UREA NITROGEN 47 mg/dL (7-18); CHLORIDE 107 mmol/L (98-107); COR CA(FOR HYPOALB) 9.3 mg/dL (8.5-10.1); CREATININE 5.28 mg/dL (0.70-1.30); SODIUM 136 mmol/L (136-145); TOTAL PROTEIN 6.2 g/dL (6.4-8.2); eGFR NON BLACK RACES 12 (>60)
[2022-05-09] MEDS: MORPHINE SULFATE INJ 2 MG INJ IVP PRN ×3 (05:26→18:10)
[2022-05-09] MEDS ORDERED: TOPROL XL PO ONE (08:43)
[2022-05-09] MEDS: APRESOLINE TAB 25 MG PO SCH ×2 (08:48→20:56)
[2022-05-09] MEDS: TOPROL XL PO SCH (08:49)
[2022-05-09] MEDS: CATAPRES TAB 0.2 MG PO SCH ×2 (08:49→20:56)
[2022-05-09] MEDS: ASPIRIN 81 MG CHEWTAB PO SCH (08:50)
[2022-05-09] MEDS: NICOTINE PATCH TD SCH (09:00)
[2022-05-09] MEDS: TESSALON PERLES PO PRN ×2 (10:53→20:58)
[2022-05-09] MEDS: ROBITUSSIN DM PO PRN ×2 (13:30→18:11)
[2022-05-09] MEDS ORDERED: TUSSIONEX PENNKINETIC SUSP PO PRN (15:50)
[2022-05-09] MEDS: ZOFRAN INJ 4 MG VIAL IVP PRN (18:12)
--- NOTE | 2022-05-09 19:23 | PCM.PROG ---
Progress Note Progress Note for Day of Date of Exam: 05/09/22 Subjective Subjective: Pt is a 52 year old male past medical history of Hypertension, CKD stage IV, admitted for Hypertension urgency, NSTEMI, Cocaine use, and Influenza A. The patient is breathing better he reports today. He is still coughing up copious amounts of greenish colored purulent sputum. The sputum culture grew out normal rossana. He is overall slowly making improvement daily now. Past Medical Family Social History Allergies: Allergies lisinopril Allergy (Verified 07/15/21 12:28) Review of Systems ROS: Changes notes (describe) (no chest pain or shortness of breath) Vital Signs and I&O's Vital Signs: Temperature 97.7 F Pulse Rate [Brachial] 59 Pulse Rate [Right Radial] 65 Pulse Rate 55 Respiratory Rate 20 Blood Pressure [Left Arm] 116/57 Blood Pressure [Right Arm] 156/94 Blood Pressure 116/55 O2 Sat by Pulse Oximetry 94 Intake and Output: Intake & Output 05/07/22 05/08/22 05/09/22 05/10/22 11:59 11:59 11:59 11:59 Intake Total 2863 / 2863 2239 / 2239 2518 / 2518 1030 / 1030 Output Total 1300 / 1300 575 / 575 1850 / 1850 Balance 1563 / 1563 1664 / 1664 668 / 668 1030 / 1030 Physical Exam Oriented: Normal Eyes: Normal Ear: Normal Nose: Normal Throat: Normal Respiratory: Generalized and Diminished Cardiovascular: Normal : Normal Auscultation: Bowel Sounds: Normal Tenderness: Normal Skin: Normal Musculoskeletal: Normal Psychiatric: Normal Mood Description: Calm and Appropriate Affect: Normal Speech Pattern: Clear and Appropriate Laboratory and Diagnostics Result Diagrams: 05/09/22 04:37 05/09/22 04:37 Labs: 05/06/22 02:04 Sputum - Expectorated Sputum Sputum Culture - Final 05/06/22 02:04 Sputum - Expectorated Sputum - Final 05/04/22 16:25 Blood Blood Culture - Preliminary 05/04/22 16:15 Blood Blood Culture - Preliminary Laboratory WBC 8.1 X10^3/uL (3.6-10.0) 05/09/22 04:37 RBC 3.54 X10^6/uL (4.7-6.0) L 05/09/22 04:37 Hgb 10.7 g/dL (13.5-18.0) L 05/09/22 04:37 Hct 31.4 % (42.0-54.0) L 05/09/22 04:37 MCV 88.9 fL (80.0-100.0) 05/09/22 04:37 MCH 30.3 pg (27.0-34.0) 05/09/22 04:37 MCHC 34.1 g/dL (33.0-35.0) 05/09/22 04:37 RDW 14.3 % (11.6-16.5) 05/09/22 04:37 Plt Count 213 X10^3/uL (150.0-450.0) 05/09/22 04:37 MPV 9.3 fL (7.4-11.0) 05/09/22 04:37 Neut % (Auto) 77.4 % (42.0-75.0) H 05/09/22 04:37 Lymph % (Auto) 7.6 % (21.0-51.0) L 05/09/22 04:37 Harvey % (Auto) 12.7 % (0.0-13.0) 05/09/22 04:37 Eos % (Auto) 1.8 % (0.9-2.9) 05/09/22 04:37 Baso % (Auto) 0.5 % (0.2-1.0) 05/09/22 04:37 Neut # (Auto) 6.3 x10^3/uL (2.2-4.8) H 05/09/22 04:37 Lymph # (Auto) 0.6 X10^3/uL (1.3-2.9) L 05/09/22 04:37 Harvey # (Auto) 1.0 x10^3/uL (0.3-0.8) H 05/09/22 04:37 Eos # (Auto) 0.1 x10^3/uL (0.0-0.2) 05/09/22 04:37 Baso # (Auto) 0.0 X10^3/uL (0.0-0.1) 05/09/22 04:37 Absolute Nucleated RBC 0.0 /100WBC 05/09/22 04:37 PT 14.3 SECONDS (11.8-14.3) 05/05/22 05:41 INR Target Range - 05/05/22 05:41 INR 1.14 (0.8-1.3) 05/05/22 05:41 APTT 57.5 SECONDS (22.9-36.5) H 05/08/22 01:01 PTT Comment - 05/08/22 01:01 D-Dimer 0.40 ug/ml (0.0-0.57) 05/04/22 16:15 Sample Site Lr 05/04/22 23:07 ABG pH 7.400 (7.35-7.45) 05/04/22 23:07 ABG pCO2 26.0 mmHg (35.0-45.0) L 05/04/22 23:07 ABG pO2 57.0 mmHg (80.0-100.0) L 05/04/22 23:07 ABG HCO3 16.1 mmol/L (22-26) L* 05/04/22 23:07 ABG O2 Saturation 89.0 % (90-100) L 05/04/22 23:07 ABG Base Excess -7.2 mmol/L (-2.0-2.0) L 05/04/22 23:07 Harsha Test Pos 05/04/22 23:07 A-a Gradient 60.0 mmHg 05/04/22 23:07 FiO2 21.0 05/04/22 23:07 Blood Gas Comments Dc well ae 05/04/22 23:07 Sodium 136 mmol/L (136-145) 05/09/22 04:37 Corrected Sodium TNP 05/09/22 04:37 Potassium 4.0 mmol/L (3.5-5.1) 05/09/22 04:37 Chloride 107 mmol/L (98-107) 05/09/22 04:37 Carbon Dioxide 19.0 mmol/L (21-32) L 05/09/22 04:37 BUN 47 mg/dL (7-18) H 05/09/22 04:37 Creatinine 5.28 mg/dL (0.70-1.30) H 05/09/22 04:37 Est GFR (MDRD) Af Amer 15 (>60) L 05/09/22 04:37 Est GFR (MDRD) Non-Af 12 (>60) L 05/09/22 04:37 Glucose 90 mg/dL (65-99) 05/09/22 04:37 Calcium 8.0 mg/dL (8.5-10.1) L 05/09/22 04:37 Corrected Calcium 9.3 mg/dL (8.5-10.1) 05/09/22 04:37 Ferritin 257 ng/mL (26-388) 05/04/22 16:15 Total Bilirubin 0.40 mg/dL (0.2-1.0) 05/09/22 04:37 AST 27 Units/L (15-37) 05/09/22 04:37 ALT 25 Units/L (12-78) 05/09/22 04:37 Alkaline Phosphatase 61 Units/L (46-116) 05/09/22 04:37 Creatine Kinase 633 Units/L (39-308) H 05/07/22 20:34 CK-MB (CK-2) 2.1 ng/mL (0-4.0) 05/07/22 20:34 CK/CKMB % Calc 0.3 % (<4) 05/07/22 20:34 Troponin I High Sens 32.7 ng/L (4.0-60.0) 05/07/22 20:34 C-Reactive Protein 6.50 mg/L (0-3.0) H 05/04/22 16:15 Total Protein 6.2 g/dL (6.4-8.2) L 05/09/22 04:37 Albumin 2.4 g/dL (3.4-5.0) L 05/09/22 04:37 Globulin 3.8 g/dL (2.5-4.5) 05/09/22 04:37 Albumin/Globulin Ratio 0.6 Ratio (1.1-2.1) L 05/09/22 04:37 Specimen Type Clean catch urine 05/04/22 18:35 Urine Color Yellow (YELLOW) 05/04/22 18:35 Urine Appearance Clear (CLEAR) 05/04/22 18:35 Urine pH 6.0 (5.0 - 8.0) 05/04/22 18:35 Ur Specific [place] 1.020 (1.000-1.030) 05/04/22 18:35 Urine Protein 4+ (NEGATIVE) 05/04/22 18:35 Urine Glucose (UA) 2+ (NEGATIVE) 05/04/22 18:35 Urine Ketones 1+ (NEGATIVE) 05/04/22 18:35 Urine Blood 3+ (NEGATIVE) 05/04/22 18:35 Urine Nitrite Negative (NEGATIVE) 05/04/22 18:35 Urine Bilirubin Negative (NEGATIVE) 05/04/22 18:35 Urine Urobilinogen Normal (NORMAL) 05/04/22 18:35 Ur Leukocyte Esterase Negative (NEGATIVE) 05/04/22 18:35 Urine RBC 0-2 /HPF (0-3) 05/04/22 18:35 Urine WBC 0-2 /HPF (0-5) 05/04/22 18:35 Ur Squamous Epith Cells Rare /HPF (NEGATIVE) 05/04/22 18:35 Amorphous Sediment 1+ /HPF (NEGATIVE) 05/04/22 18:35 Urine Bacteria Trace /HPF (NEGATIVE) 05/04/22 18:35 Granular Casts Few /LPF (NEGATIVE) 05/04/22 18:35 Ur Culture Indicated? No/not indicated 05/04/22 18:35 Urine Opiates Screen Negative (NEG=<300) 05/04/22 18:35 Urine Methadone Screen Negative (NEG=<300) 05/04/22 18:35 Ur Barbiturates Screen Negative (NEG=<200) 05/04/22 18:35 Ur Phencyclidine Scrn Negative (NEG=<25) 05/04/22 18:35 Ur Amphetamines Screen Negative (NEG=<1000) 05/04/22 18:35 U Benzodiazepines Scrn Negative (NEG=<200) 05/04/22 18:35 Urine Cocaine Screen Positive (NEG=<300) 05/04/22 18:35 U Marijuana (THC) Screen Positive (NEG=<50) A 05/04/22 18:35 SARS-CoV-2 (PCR) Negative (NEGATIVE) 05/04/22 18: Influenza Type A (PCR) Positive (NEGATIVE) A 05/04/22 18:29 Influenza Type B (PCR) Negative (NEGATIVE) 05/04/22 18:29 RSV (PCR) Negative (NEGATIVE) 05/04/22 18:29 Plan (1) Hypertensive urgency: Status: Resolved Plan: Continue to monitor blood pressure (2) Chest pain: Status: Acute Qualifiers: Chest pain type: unspecified Qualified Code(s): R07.9 - Chest pain, unspecified Plan: I will order nitroglycerin tablet 0.4 mg sublingual as needed chest pain. Next check cardiac enzymes and serial EKGs as well (3) CKD (chronic kidney disease) stage 4, GFR 15-29 ml/min: Status: Acute Plan: Improved creatinine since yesterday. (4) Influenza A: Status: Acute Plan: Nebs. I am going to start the patient on IV Rocephin and Zithromax. For possible underlying secondary bacterial infection from influenza. (5) Cocaine abuse: Status: Acute Plan: Counseled patient about using illicit drugs. (6) NSTEMI (non-ST elevated myocardial infarction): Status: Acute Plan: Continue to monitor patient with serial cardiac enzymes and EKGs. Continue supplemental O2. Nitroglycerin for chest pain and as needed morphine if needed for pain.
[2022-05-09] MEDS ORDERED: ROCEPHIN 1 GRAM IV PREMIX 1 G/50 ML IV.SOLN. IV SCH (19:26)
[2022-05-09] MEDS ORDERED: NS 50 ML IV 50 ML IV ONE (20:53)
[2022-05-09] MEDS ORDERED: ROCEPHIN VIAL 1 GRAM ONE (20:54)
[2022-05-09] MEDS: ZITHROMAX INJ 500 MG VIAL 250 MG in NS 250 ML IV 250 ML IV SCH (20:55)
[2022-05-09] MEDS: COLACE CAP 100 MG PO SCH (20:56)
[2022-05-09] MEDS: TUSSIONEX PENNKINETIC SUSP PO PRN (20:58)
[2022-05-10] MEDS: MORPHINE SULFATE INJ 2 MG INJ IVP PRN (01:00)
[2022-05-10] MEDS: ROBITUSSIN DM PO PRN (01:19)
[2022-05-10] MEDS: NS 1,000 ML IV 1,000 ML IV SCH (05:28)
[2022-05-10 06:16] LABS: BASOPHILS # (AUTO) 0.1 X10^3/uL (0.0-0.1); BASOPHILS % (AUTO) 0.5 % (0.2-1.0); EOSINOPHILS # (AUTO) 0.2 x10^3/uL (0.0-0.2); HEMOGLOBIN 10.9 g/dL (13.5-18.0); LYMPHOCYTES # (AUTO) 0.9 X10^3/uL (1.3-2.9); LYMPHOCYTES % (AUTO) 8.4 % (21.0-51.0); MEAN CORPUSCULAR HEMOGLOBIN 30.5 pg (27.0-34.0); MEAN CORPUSCULAR VOLUME 89.7 fL (80.0-100.0); MEAN PLATELET VOLUME 8.6 fL (7.4-11.0); MONOCYTES # (AUTO) 1.3 x10^3/uL (0.3-0.8); MONOCYTES % (AUTO) 12.9 % (0.0-13.0); NEUTROPHILS # (AUTO) 7.8 x10^3/uL (2.2-4.8); NEUTROPHILS % (AUTO) 76.2 % (42.0-75.0); RED BLOOD COUNT 3.57 X10^6/uL (4.7-6.0); RED CELL DISTRIBUTION WIDTH 13.8 % (11.6-16.5); WHITE BLOOD COUNT 10.2 X10^3/uL (3.6-10.0)
[2022-05-10 06:24] LABS: ALANINE AMINOTRANSFERASE 30 Units/L (12-78); ALBUMIN 2.3 g/dL (3.4-5.0); ALKALINE PHOSPHATASE 92 Units/L (46-116); ASPARTATE AMINO TRANSFERASE 30 Units/L (15-37); BLOOD UREA NITROGEN 39 mg/dL (7-18); CALCIUM 8.1 mg/dL (8.5-10.1); CARBON DIOXIDE 19.5 mmol/L (21-32); CHLORIDE 109 mmol/L (98-107); COR CA(FOR HYPOALB) 9.5 mg/dL (8.5-10.1); SODIUM 140 mmol/L (136-145); TOTAL PROTEIN 6.3 g/dL (6.4-8.2); eGFR NON BLACK RACES 14 (>60)
--- NOTE | 2022-05-10 07:00 | RAD ---
HISTORYRespiratory infiltrateSTUDYPortable AP [id number]/03/2022FINDINGSContinu ed normal heart size with clear lungs and pleural spaces. Mild dilatation of central pulmonary arteries. Stable position of left subclavian line.IMPRESSIONNo interval change or acute abnormality identified.Electronically signed by: MICHAEL SOTO (May 10, 2022 06:59:01)
[2022-05-10] MEDS ORDERED: TOPROL XL PO ONE (07:38)
[2022-05-10] MEDS: APRESOLINE TAB 25 MG PO SCH (08:22)
[2022-05-10] MEDS: CATAPRES TAB 0.2 MG PO SCH (08:23)
[2022-05-10] MEDS: ASPIRIN 81 MG CHEWTAB PO SCH (08:23)
[2022-05-10] MEDS: TOPROL XL PO SCH (08:23)
[2022-05-10] MEDS: NICOTINE PATCH TD SCH (08:24)
[2022-05-10] MEDS: ZITHROMAX INJ 500 MG VIAL 250 MG in NS 250 ML IV 250 ML IV SCH (08:24)
[2022-05-10] MEDS ORDERED: ROCEPHIN VIAL 1 GRAM 1 G in NS 100 ML IV 100 ML IV SCH (09:00)
--- NOTE | 2022-05-10 09:52 | W.DIS.FURT ---
Summary of Discharge Discharge Summary of Date Date of Exam: 05/10/22 Admission Diagnosis Patient Problems (Updated 05/08/22 @ 18:40 by GELA DENISE) Hypertensive urgency (Resolved) I16.0 Chest pain (Acute) R07.9 CKD (chronic kidney disease) stage 5, GFR less than 15 ml/min (Acute) N18.5 Current recreational drug use (Acute) Z91.89 Influenza A (Acute) J10.1 Hospital Course: Pt is a 52 year old male past medical history of Hypertension, CKD stage IV, admitted for Hypertension urgency, NSTEMI, Cocaine use, and Influenza A. His hospital/treatment course included being weaned off cardene gtt and placed back on his home medications. Home blood pressure medications had to adjusted due to non-compliance at home. He did have an elevated troponin level likely due to heart strain from drug abuse and hypertensive urgency with chronic kidney diseas e that trended back down after blood pressure controlled and 48 hours of heparin gtt. He did receive Tamiflu at renal dosing for Influenza A. Pt did have productive sputum and sputum cultures showed normal rossana. However, on over the weekend and on discharge sputum had greenish color, rx levaquin x 5 days. Pt will need to follow up with his statistics tutor outpatient for his chronic renal disease as well as cardiology. Pt responded well to treatment. He was discharged in stable condition, instructed to follow up with pcp in 3-5 days. Vital Signs: Vital Signs (72 hours) 05/07/22 10:00 05/07/22 10:01 05/07/22 10:01 Temperature Pulse Rate 59 L 59 L Pulse Rate [Brachial] Pulse Rate [Right Radial] Respiratory Rate 20 20 Blood Pressure 99/53 Blood Pressure [Left Arm] Blood Pressure [Right Arm] O2 Sat by Pulse Oximetry 95 95 Oxygen Delivery Method Oxygen Flow Rate FIO2% 05/07/22 10:30 05/07/22 11:00 05/07/22 11:00 Temperature Pulse Rate 59 L 57 L Pulse Rate [Brachial] Pulse Rate [Right Radial] Respiratory Rate 18 19 Blood Pressure 110/60 Blood Pressure [Left Arm] Blood Pressure [Right Arm] O2 Sat by Pulse Oximetry 94 L 97 Oxygen Delivery Method Oxygen Flow Rate FIO2% 05/07/22 11:30 05/07/22 13:17 05/07/22 12:00 Temperature Pulse Rate 58 L Pulse Rate [Brachial] Pulse Rate [Right Radial] Respiratory Rate 22 38 H Blood Pressure 106/56 Blood Pressure [Left Arm] Blood Pressure [Right Arm] O2 Sat by Pulse Oximetry 97 Oxygen Delivery Method Oxygen Flow Rate FIO2% 05/07/22 12:00 05/07/22 12:30 05/07/22 13:00 Temperature Pulse Rate 56 L 57 L Pulse Rate [Brachial] Pulse Rate [Right Radial] Respiratory Rate 22 20 Blood Pressure 99/57 Blood Pressure [Left Arm] Blood Pressure [Right Arm] O2 Sat by Pulse Oximetry 93 L 93 L Oxygen Delivery Method Oxygen Flow Rate FIO2% 05/07/22 13:00 05/07/22 13:30 05/07/22 14:00 Temperature Pulse Rate 57 L 66 Pulse Rate [Brachial] Pulse Rate [Right Radial] Respiratory Rate 19 28 H Blood Pressure 118/69 Blood Pressure [Left Arm] Blood Pressure [Right Arm] O2 Sat by Pulse Oximetry 93 L 93 L Oxygen Delivery Method Oxygen Flow Rate FIO2% 05/07/22 14:00 05/07/22 14:30 05/07/22 15:00 Temperature Pulse Rate 62 61 Pulse Rate [Brachial] Pulse Rate [Right Radial] Respiratory Rate Blood Pressure 104/55 Blood Pressure [Left Arm] Blood Pressure [Right Arm] O2 Sat by Pulse Oximetry 94 L 95 Oxygen Delivery Method Oxygen Flow Rate FIO2% 05/07/22 15:00 05/07/22 15:30 05/07/22 16:00 Temperature Pulse Rate 58 L 56 L Pulse Rate [Brachial] Pulse Rate [Right Radial] Respiratory Rate 17 16 Blood Pressure 109/64 Blood Pressure [Left Arm] Blood Pressure [Right Arm] O2 Sat by Pulse Oximetry 94 L 94 L Oxygen Delivery Method Oxygen Flow Rate FIO2% 05/07/22 16:00 05/07/22 16:30 05/07/22 14:00 Temperature Pulse Rate 56 L 60 Pulse Rate [Brachial] Pulse Rate [Right Radial] Respiratory Rate 16 37 H Blood Pressure Blood Pressure [Left Arm] Blood Pressure [Right Arm] O2 Sat by Pulse Oximetry 94 L 94 L Oxygen Delivery Method Room Air Oxygen Flow Rate 2 FIO2% 28 05/07/22 16:00 05/07/22 17:00 05/07/22 17:30 Temperature 98.5 F Pulse Rate 62 62 62 Pulse Rate [Brachial] Pulse Rate [Right Radial] Respiratory Rate 18 Blood Pressure 112/72 Blood Pressure [Left Arm] Blood Pressure [Right Arm] O2 Sat by Pulse Oximetry 92 L 79 L 93 L Oxygen Delivery Method Nasal Cannula Oxygen Flow Rate FIO2% 05/07/22 13:47 05/07/22 17:49 05/07/22 17:49 Temperature Pulse Rate 62 Pulse Rate [Brachial] Pulse Rate [Right Radial] Respiratory Rate 18 Blood Pressure 112/72 Blood Pressure [Left Arm] Blood Pressure [Right Arm] O2 Sat by Pulse Oximetry 93 L Oxygen Delivery Method Oxygen Flow Rate FIO2% 05/07/22 18:00 05/07/22 18:30 05/07/22 18:49 Temperature Pulse Rate 65 66 Pulse Rate [Brachial] Pulse Rate [Right Radial] Respiratory Rate 19 Blood Pressure Blood Pressure [Left Arm] Blood Pressure [Right Arm] O2 Sat by Pulse Oximetry 92 L 93 L Oxygen Delivery Method Oxygen Flow Rate FIO2% 05/07/22 19:19 05/07/22 19:00 05/07/22 19:00 Temperature 98.5 F Pulse Rate 70 Pulse Rate [Brachial] Pulse Rate [Right Radial] Respiratory Rate 18 23 Blood Pressure 145/84 Blood Pressure [Left Arm] Blood Pressure [Right Arm] O2 Sat by Pulse Oximetry 97 Oxygen Delivery Method Nasal Cannula Oxygen Flow Rate 2 FIO2% 05/07/22 20:00 05/07/22 21:00 05/07/22 22:00 Temperature Pulse Rate 71 68 64 Pulse Rate [Brachial] Pulse Rate [Right Radial] Respiratory Rate 26 H 36 H 27 H Blood Pressure 131/86 140/99 128/73 Blood Pressure [Left Arm] Blood Pressure [Right Arm] O2 Sat by Pulse Oximetry 97 96 97 Oxygen Delivery Method Oxygen Flow Rate FIO2% 05/07/22 23:00 05/08/22 00:00 05/08/22 01:00 Temperature 98.1 F Pulse Rate 59 L 64 63 Pulse Rate [Brachial] Pulse Rate [Right Radial] Respiratory Rate 16 23 25 H Blood Pressure 114/66 104/70 105/83 Blood Pressure [Left Arm] Blood Pressure [Right Arm] O2 Sat by Pulse Oximetry 98 97 97 Oxygen Delivery Method Nasal Cannula Nasal Cannula Nasal Cannula Oxygen Flow Rate 2 2 2 FIO2% 05/08/22 02:00 05/08/22 03:00 05/08/22 04:00 Temperature 98.4 F Pulse Rate 60 60 58 L Pulse Rate [Brachial] Pulse Rate [Right Radial] Respiratory Rate 16 18 16 Blood Pressure 132/72 134/72 130/70 Blood Pressure [Left Arm] Blood Pressure [Right Arm] O2 Sat by Pulse Oximetry 97 99 96 Oxygen Delivery Method Nasal Cannula Nasal Cannula Nasal Cannula Oxygen Flow Rate 2 2 2 FIO2% 05/08/22 05:00 05/07/22 19:40 05/08/22 06:00 Temperature Pulse Rate 63 62 Pulse Rate [Brachial] Pulse Rate [Right Radial] Respiratory Rate 16 19 Blood Pressure 136/81 155/79 Blood Pressure [Left Arm] Blood Pressure [Right Arm] O2 Sat by Pulse Oximetry 98 96 Oxygen Delivery Method Nasal Cannula Nasal Cannula Nasal Cannula Oxygen Flow Rate 2 2 2 FIO2% 28 05/08/22 07:00 05/07/22 21:02 05/07/22 21:02 Temperature Pulse Rate 68 Pulse Rate [Brachial] Pulse Rate [Right Radial] Respiratory Rate 36 H Blood Pressure 140/99 Blood Pressure [Left Arm] Blood Pressure [Right Arm] O2 Sat by Pulse Oximetry 96 Oxygen Delivery Method Nasal Cannula Oxygen Flow Rate 2 FIO2% 05/07/22 21:30 05/07/22 21:30 05/07/22 22:00 Temperature Pulse Rate 66 64 Pulse Rate [Brachial] Pulse Rate [Right Radial] Respiratory Rate 24 20 Blood Pressure 136/76 Blood Pressure [Left Arm] Blood Pressure [Right Arm] O2 Sat by Pulse Oximetry 98 97 Oxygen Delivery Method Oxygen Flow Rate FIO2% 05/07/22 22:07 05/07/22 22:07 05/07/22 22:07 Temperature Pulse Rate 64 Pulse Rate [Brachial] Pulse Rate [Right Radial] Respiratory Rate 27 H Blood Pressure 128/73 128/73 Blood Pressure [Left Arm] Blood Pressure [Right Arm] O2 Sat by Pulse Oximetry 97 Oxygen Delivery Method Oxygen Flow Rate FIO2% 05/07/22 22:30 05/07/22 22:30 05/07/22 23:00 Temperature Pulse Rate 61 Pulse Rate [Brachial] Pulse Rate [Right Radial] Respiratory Rate 18 Blood Pressure 126/67 114/66 Blood Pressure [Left Arm] Blood Pressure [Right Arm] O2 Sat by Pulse Oximetry 98 Oxygen Delivery Method Oxygen Flow Rate FIO2% 05/07/22 23:00 05/07/22 23:30 05/07/22 23:30 Temperature Pulse Rate 58 L 59 L Pulse Rate [Brachial] Pulse Rate [Right Radial] Respiratory Rate 18 18 Blood Pressure 119/72 Blood Pressure [Left Arm] Blood Pressure [Right Arm] O2 Sat by Pulse Oximetry 98 98 Oxygen Delivery Method Oxygen Flow Rate FIO2% 05/08/22 00:00 05/08/22 00:02 05/08/22 00:02 Temperature Pulse Rate 63 63 Pulse Rate [Brachial] Pulse Rate [Right Radial] Respiratory Rate 21 25 H Blood Pressure 105/70 Blood Pressure [Left Arm] Blood Pressure [Right Arm] O2 Sat by Pulse Oximetry 97 97 Oxygen Delivery Method Oxygen Flow Rate FIO2% 05/08/22 00:30 05/08/22 00:30 05/08/22 01:00 Temperature Pulse Rate 60 61 Pulse Rate [Brachial] Pulse Rate [Right Radial] Respiratory Rate 20 22 Blood Pressure 114/67 Blood Pressure [Left Arm] Blood Pressure [Right Arm] O2 Sat by Pulse Oximetry 98 98 Oxygen Delivery Method Oxygen Flow Rate FIO2% 05/08/22 01:05 05/08/22 01:05 05/08/22 01:30 Temperature Pulse Rate 62 62 Pulse Rate [Brachial] Pulse Rate [Right Radial] Respiratory Rate 32 H 25 H Blood Pressure 105/83 Blood Pressure [Left Arm] Blood Pressure [Right Arm] O2 Sat by Pulse Oximetry 97 99 Oxygen Delivery Method Oxygen Flow Rate FIO2% 05/08/22 02:00 05/08/22 02:30 05/08/22 02:55 Temperature Pulse Rate 59 L 59 L Pulse Rate [Brachial] Pulse Rate [Right Radial] Respiratory Rate 18 16 Blood Pressure 132/72 Blood Pressure [Left Arm] Blood Pressure [Right Arm] O2 Sat by Pulse Oximetry 99 98 Oxygen Delivery Method Oxygen Flow Rate FIO2% 05/08/22 02:55 05/08/22 03:00 05/08/22 03:00 Temperature Pulse Rate 60 60 Pulse Rate [Brachial] Pulse Rate [Right Radial] Respiratory Rate 16 18 Blood Pressure 134/72 Blood Pressure [Left Arm] Blood Pressure [Right Arm] O2 Sat by Pulse Oximetry 99 99 Oxygen Delivery Method Oxygen Flow Rate FIO2% 05/08/22 03:30 05/08/22 03:30 05/08/22 04:00 Temperature Pulse Rate 58 L Pulse Rate [Brachial] Pulse Rate [Right Radial] Respiratory Rate 19 Blood Pressure 129/67 130/70 Blood Pressure [Left Arm] Blood Pressure [Right Arm] O2 Sat by Pulse Oximetry 99 Oxygen Delivery Method Oxygen Flow Rate FIO2% 05/08/22 04:00 05/08/22 04:30 05/08/22 04:30 Temperature Pulse Rate 59 L 62 Pulse Rate [Brachial] Pulse Rate [Right Radial] Respiratory Rate 18 25 H Blood Pressure 121/84 Blood Pressure [Left Arm] Blood Pressure [Right Arm] O2 Sat by Pulse Oximetry 99 98 Oxygen Delivery Method Oxygen Flow Rate FIO2% 05/08/22 05:00 05/08/22 05:03 05/08/22 05:03 Temperature Pulse Rate 66 64 Pulse Rate [Brachial] Pulse Rate [Right Radial] Respiratory Rate 23 Blood Pressure 136/81 Blood Pressure [Left Arm] Blood Pressure [Right Arm] O2 Sat by Pulse Oximetry 94 L 99 Oxygen Delivery Method Oxygen Flow Rate FIO2% 05/08/22 05:30 05/08/22 05:31 05/08/22 05:31 Temperature Pulse Rate 67 67 Pulse Rate [Brachial] Pulse Rate [Right Radial] Respiratory Rate 29 H 30 H Blood Pressure 160/85 Blood Pressure [Left Arm] Blood Pressure [Right Arm] O2 Sat by Pulse Oximetry 97 97 Oxygen Delivery Method Oxygen Flow Rate FIO2% 05/08/22 06:00 05/08/22 06:00 05/08/22 06:30 Temperature Pulse Rate 64 61 Pulse Rate [Brachial] Pulse Rate [Right Radial] Respiratory Rate 22 18 Blood Pressure 155/79 Blood Pressure [Left Arm] Blood Pressure [Right Arm] O2 Sat by Pulse Oximetry 97 97 Oxygen Delivery Method Oxygen Flow Rate FIO2% 05/08/22 07:00 05/08/22 07:00 05/08/22 07:30 Temperature Pulse Rate 61 63 Pulse Rate [Brachial] Pulse Rate [Right Radial] Respiratory Rate 18 24 Blood Pressure 150/80 Blood Pressure [Left Arm] Blood Pressure [Right Arm] O2 Sat by Pulse Oximetry 97 95 Oxygen Delivery Method Oxygen Flow Rate FIO2% 05/08/22 08:00 05/08/22 08:00 05/08/22 08:30 Temperature 98.6 F Pulse Rate 68 72 Pulse Rate [Brachial] Pulse Rate [Right Radial] Respiratory Rate 40 H 33 H Blood Pressure 124/80 Blood Pressure [Left Arm] Blood Pressure [Right Arm] O2 Sat by Pulse Oximetry 97 92 L Oxygen Delivery Method Oxygen Flow Rate FIO2% 05/08/22 08:53 05/08/22 09:00 05/08/22 09:02 Temperature Pulse Rate 69 68 Pulse Rate [Brachial] Pulse Rate [Right Radial] Respiratory Rate 25 H 31 H 30 H Blood Pressure Blood Pressure [Left Arm] Blood Pressure [Right Arm] O2 Sat by Pulse Oximetry 95 95 Oxygen Delivery Method Oxygen Flow Rate FIO2% 05/08/22 09:02 05/08/22 08:50 05/08/22 08:50 Temperature Pulse Rate Pulse Rate [Brachial] Pulse Rate [Right Radial] Respiratory Rate Blood Pressure 157/86 Blood Pressure [Left Arm] Blood Pressure [Right Arm] O2 Sat by Pulse Oximetry 89 L Oxygen Delivery Method Room Air Oxygen Flow Rate 2 FIO2% 28 05/08/22 09:30 05/08/22 10:00 05/08/22 10:01 Temperature Pulse Rate 66 57 L Pulse Rate [Brachial] Pulse Rate [Right Radial] Respiratory Rate 37 H 18 Blood Pressure 116/55 Blood Pressure [Left Arm] Blood Pressure [Right Arm] O2 Sat by Pulse Oximetry 93 L 96 Oxygen Delivery Method Oxygen Flow Rate FIO2% 05/08/22 10:01 05/08/22 09:23 05/08/22 10:30 Temperature Pulse Rate 57 L 56 L Pulse Rate [Brachial] Pulse Rate [Right Radial] Respiratory Rate 18 18 17 Blood Pressure Blood Pressure [Left Arm] Blood Pressure [Right Arm] O2 Sat by Pulse Oximetry 96 97 Oxygen Delivery Method Oxygen Flow Rate FIO2% 05/08/22 11:00 05/08/22 11:00 05/08/22 16:05 Temperature 98.7 F Pulse Rate 55 L Pulse Rate [Brachial] Pulse Rate [Right Radial] 58 L Respiratory Rate 17 20 Blood Pressure 116/55 Blood Pressure [Left Arm] Blood Pressure [Right Arm] 135/79 O2 Sat by Pulse Oximetry 97 96 Oxygen Delivery Method Nasal Cannula Oxygen Flow Rate 2 FIO2% 05/08/22 18:15 05/08/22 18:45 05/08/22 20:37 Temperature Pulse Rate Pulse Rate [Brachial] Pulse Rate [Right Radial] Respiratory Rate 18 20 Blood Pressure Blood Pressure [Left Arm] Blood Pressure [Right Arm] O2 Sat by Pulse Oximetry Oxygen Delivery Method Nasal Cannula Oxygen Flow Rate 2 FIO2% 28 05/08/22 20:00 05/08/22 19:00 05/09/22 00:00 Temperature 98.9 F 97.6 F Pulse Rate Pulse Rate [Brachial] Pulse Rate [Right Radial] 66 65 Respiratory Rate 22 20 Blood Pressure Blood Pressure [Left Arm] Blood Pressure [Right Arm] 166/98 156/94 O2 Sat by Pulse Oximetry 95 96 Oxygen Delivery Method Nasal Cannula Nasal Cannula Nasal Cannula Oxygen Flow Rate 2 2 2 FIO2% 05/09/22 04:00 05/09/22 05:26 05/09/22 05:56 Temperature 99.1 F Pulse Rate Pulse Rate [Brachial] 65 Pulse Rate [Right Radial] Respiratory Rate 20 24 20 Blood Pressure Blood Pressure [Left Arm] 155/92 Blood Pressure [Right Arm] O2 Sat by Pulse Oximetry 98 Oxygen Delivery Method Nasal Cannula Oxygen Flow Rate 2 FIO2% 05/09/22 08:00 05/09/22 08:00 05/09/22 07:00 Temperature 98.5 F Pulse Rate Pulse Rate [Brachial] 74 Pulse Rate [Right Radial] Respiratory Rate 20 Blood Pressure Blood Pressure [Left Arm] 172/89 Blood Pressure [Right Arm] O2 Sat by Pulse Oximetry 94 L Oxygen Delivery Method Nasal Cannula Nasal Cannula Nasal Cannula Oxygen Flow Rate 2 2 2 FIO2% 28 05/09/22 12:00 05/09/22 12:28 05/09/22 12:58 Temperature 97.9 F Pulse Rate Pulse Rate [Brachial] 59 L Pulse Rate [Right Radial] Respiratory Rate 20 20 20 Blood Pressure Blood Pressure [Left Arm] 129/80 Blood Pressure [Right Arm] O2 Sat by Pulse Oximetry 96 Oxygen Delivery Method Nasal Cannula Oxygen Flow Rate 2 FIO2% 05/09/22 16:00 05/09/22 18:10 05/09/22 18:40 Temperature 97.7 F Pulse Rate Pulse Rate [Brachial] 59 L Pulse Rate [Right Radial] Respiratory Rate 20 20 20 Blood Pressure Blood Pressure [Left Arm] 116/57 Blood Pressure [Right Arm] O2 Sat by Pulse Oximetry 94 L Oxygen Delivery Method Nasal Cannula Oxygen Flow Rate 2 FIO2% 05/09/22 19:00 05/09/22 20:50 05/09/22 20:50 Temperature Pulse Rate 62 Pulse Rate [Brachial] Pulse Rate [Right Radial] Respiratory Rate Blood Pressure Blood Pressure [Left Arm] Blood Pressure [Right Arm] O2 Sat by Pulse Oximetry 93 L Oxygen Delivery Method Nasal Cannula Nasal Cannula Oxygen Flow Rate 2 2 FIO2% 28 05/09/22 20:00 05/09/22 23:47 05/10/22 00:01 Temperature 98.8 F 98.7 F Pulse Rate Pulse Rate [Brachial] 63 60 Pulse Rate [Right Radial] Respiratory Rate 20 18 Blood Pressure Blood Pressure [Left Arm] 159/87 130/81 Blood Pressure [Right Arm] O2 Sat by Pulse Oximetry 96 96 Oxygen Delivery Method Nasal Cannula Nasal Cannula Nasal Cannula Oxygen Flow Rate 2 2 2 FIO2% 28 05/10/22 01:00 05/10/22 01:30 05/10/22 04:00 Temperature 98.6 F Pulse Rate Pulse Rate [Brachial] 60 Pulse Rate [Right Radial] Respiratory Rate 20 20 18 Blood Pressure Blood Pressure [Left Arm] 154/95 Blood Pressure [Right Arm] O2 Sat by Pulse Oximetry 98 Oxygen Delivery Method Nasal Cannula Oxygen Flow Rate 2 FIO2% 05/10/22 07:48 05/10/22 07:00 Temperature 98.6 F Pulse Rate Pulse Rate [Brachial] 57 L Pulse Rate [Right Radial] Respiratory Rate 18 Blood Pressure Blood Pressure [Left Arm] 170/99 Blood Pressure [Right Arm] O2 Sat by Pulse Oximetry 94 L Oxygen Delivery Method Room Air Oxygen Flow Rate FIO2% Labs: Laboratory Last Values WBC 10.2 X10^3/uL (3.6-10.0) H 05/10/22 05:45 RBC 3.57 X10^6/uL (4.7-6.0) L 05/10/22 05:45 Hgb 10.9 g/dL (13.5-18.0) L 05/10/22 05:45 Hct 32.0 % (42.0-54.0) L 05/10/22 05:45 MCV 89.7 fL (80.0-100.0) 05/10/22 05:45 MCH 30.5 pg (27.0-34.0) 05/10/22 05:45 MCHC 34.0 g/dL (33.0-35.0) 05/10/22 05:45 RDW 13.8 % (11.6-16.5) 05/10/22 05:45 Plt Count 256 X10^3/uL (150.0-450.0) 05/10/22 05:45 MPV 8.6 fL (7.4-11.0) 05/10/22 05:45 Neut % (Auto) 76.2 % (42.0-75.0) H 05/10/22 05:45 Lymph % (Auto) 8.4 % (21.0-51.0) L 05/10/22 05:45 [place] % (Auto) 12.9 % (0.0-13.0) 05/10/22 05:45 Eos % (Auto) 2.0 % (0.9-2.9) 05/10/22 05:45 Baso % (Auto) 0.5 % (0.2-1.0) 05/10/22 05:45 Neut # (Auto) 7.8 x10^3/uL (2.2-4.8) H 05/10/22 05:45 Lymph # (Auto) 0.9 X10^3/uL (1.3-2.9) L 05/10/22 05:45 [place] # (Auto) 1.3 x10^3/uL (0.3-0.8) H 05/10/22 05:45 Eos # (Auto) 0.2 x10^3/uL (0.0-0.2) 05/10/22 05:45 Baso # (Auto) 0.1 X10^3/uL (0.0-0.1) 05/10/22 05:45 Absolute Nucleated RBC 0.0 /100WBC 05/10/22 05:45 PT 14.3 SECONDS (11.8-14.3) 05/05/22 05:41 INR Target Range - 05/05/22 05:41 INR 1.14 (0.8-1.3) 05/05/22 05:41 APTT 57.5 SECONDS (22.9-36.5) H 05/08/22 01:01 PTT Comment - 05/08/22 01:01 D-Dimer 0.40 ug/ml (0.0-0.57) 05/04/22 16:15 Sample Site Lr 05/04/22 23:07 ABG pH 7.400 (7.35-7.45) 05/04/22 23:07 ABG pCO2 26.0 mmHg (35.0-45.0) L 05/04/22 23:07 ABG pO2 57.0 mmHg (80.0-100.0) L 05/04/22 23:07 ABG HCO3 16.1 mmol/L (22-26) L* 05/04/22 23:07 ABG O2 Saturation 89.0 % (90-100) L 05/04/22 23:07 ABG Base Excess -7.2 mmol/L (-2.0-2.0) L 05/04/22 23:07 Harsha Test Pos 05/04/22 23:07 A-a Gradient 60.0 mmHg 05/04/22 23:07 FiO2 21.0 05/04/22 23:07 Blood Gas Comments Dc well ae 05/04/22 23:07 Sodium 140 mmol/L (136-145) 05/10/22 05:45 Corrected Sodium TNP 05/10/22 05:45 Potassium 4.1 mmol/L (3.5-5.1) 05/10/22 05:45 Chloride 109 mmol/L (98-107) H 05/10/22 05:45 Carbon Dioxide 19.5 mmol/L (21-32) L 05/10/22 05:45 BUN 39 mg/dL (7-18) H 05/10/22 05:45 Creatinine 4.80 mg/dL (0.70-1.30) H 05/10/22 05:45 Est GFR (MDRD) Af Amer 17 (>60) L 05/10/22 05:45 Est GFR (MDRD) Non-Af 14 (>60) L 05/10/22 05:45 Glucose 98 mg/dL (65-99) 05/10/22 05:45 Calcium 8.1 mg/dL (8.5-10.1) L 05/10/22 05:45 Corrected Calcium 9.5 mg/dL (8.5-10.1) 05/10/22 05:45 Ferritin 257 ng/mL (26-388) 05/04/22 16:15 Total Bilirubin 0.30 mg/dL (0.2-1.0) 05/10/22 05:45 AST 30 Units/L (15-37) 05/10/22 05:45 ALT 30 Units/L (12-78) 05/10/22 05:45 Alkaline Phosphatase 92 Units/L (46-116) 05/10/22 05:45 Creatine Kinase 633 Units/L (39-308) H 05/07/22 20:34 CK-MB (CK-2) 2.1 ng/mL (0-4.0) 05/07/22 20:34 CK/CKMB % Calc 0.3 % (<4) 05/07/22 20:34 Troponin I High Sens 32.7 ng/L (4.0-60.0) 05/07/22 20:34 C-Reactive Protein 6.50 mg/L (0-3.0) H 05/04/22 16:15 Total Protein 6.3 g/dL (6.4-8.2) L 05/10/22 05:45 Albumin 2.3 g/dL (3.4-5.0) L 05/10/22 05:45 Globulin 4.0 g/dL (2.5-4.5) 05/10/22 05:45 Albumin/Globulin Ratio 0.6 Ratio (1.1-2.1) L 05/10/22 05:45 Specimen Type Clean catch urine 05/04/22 18:35 Urine Color Yellow (YELLOW) 05/04/22 18:35 Urine Appearance Clear (CLEAR) 05/04/22 18:35 Urine pH 6.0 (5.0 - 8.0) 05/04/22 18:35 Ur Specific [place] 1.020 (1.000-1.030) 05/04/22 18:35 Urine Protein 4+ (NEGATIVE) 05/04/22 18:35 Urine Glucose (UA) 2+ (NEGATIVE) 05/04/22 18:35 Urine Ketones 1+ (NEGATIVE) 05/04/22 18:35 Urine Blood 3+ (NEGATIVE) 05/04/22 18:35 Urine Nitrite Negative (NEGATIVE) 05/04/22 18:35 Urine Bilirubin Negative (NEGATIVE) 05/04/22 18:35 Urine Urobilinogen Normal (NORMAL) 05/04/22 18:35 Ur Leukocyte Esterase Negative (NEGATIVE) 05/04/22 18:35 Urine RBC 0-2 /HPF (0-3) 05/04/22 18:35 Urine WBC 0-2 /HPF (0-5) 05/04/22 18:35 Ur Squamous Epith Cells Rare /HPF (NEGATIVE) 05/04/22 18:35 Amorphous Sediment 1+ /HPF (NEGATIVE) 05/04/22 18:35 Urine Bacteria Trace /HPF (NEGATIVE) 05/04/22 18:35 Granular Casts Few /LPF (NEGATIVE) 05/04/22 18:35 Ur Culture Indicated? No/not indicated 05/04/22 18:35 Urine Opiates Screen Negative (NEG=<300) 05/04/22 18:35 Urine Methadone Screen Negative (NEG=<300) 05/04/22 18:35 Ur Barbiturates Screen Negative (NEG=<200) 05/04/22 18:35 Ur Phencyclidine Scrn Negative (NEG=<25) 05/04/22 18:35 Ur Amphetamines Screen Negative (NEG=<1000) 05/04/22 18:35 U Benzodiazepines Scrn Negative (NEG=<200) 05/04/22 18:35 Urine Cocaine Screen Positive (NEG=<300) 05/04/22 18:35 U Marijuana (THC) Screen Positive (NEG=<50) A 05/04/22 18:35 SARS-CoV-2 (PCR) Negative (NEGATIVE) 05/04/22 18:29 Influenza Type A (PCR) Positive (NEGATIVE) A 05/04/22 18:29 Influenza Type B (PCR) Negative (NEGATIVE) 05/04/22 18:29 RSV (PCR) Negative (NEGATIVE) 05/04/22 18:29 Reason For Visit: HYPERTESIVE URGENCY, CHEST PAIN, CKD Discharge Diagnosis All Active Problems (Updated 05/08/22 @ 18:40 by GELA DENISE) NSTEMI (non-ST elevated myocardial infarction) (Acute) Chest pain (Acute) CKD (chronic kidney disease) stage 5, GFR less than 15 ml/min (Acute) Current recreational drug use (Acute) Influenza A (Acute) Acute hypokalemia (Acute) CKD (chronic kidney disease) stage 4, GFR 15-29 ml/min (Acute) Cocaine abuse (Acute) Chest pain (Acute) Hypertension (Acute) Urinary retention (Acute) Hypertension (Acute) Abdominal pain (Acute) Substance abuse (Acute) Hypokalemia (Acute) Chronic renal insufficiency (Acute) Substance use (Acute) Hypertensive crisis (Acute) Acute hypokalemia (Acute) Acute on chronic renal failure (Acute) Hematuria (Acute) Acute GI bleeding (Acute) Nausea and vomiting (Acute) Hypernatremia (Acute) Hypertensive urgency (Acute) RLL pneumonia (Acute) Hypokalemia (Acute) H. pylori infection (Acute) Cocaine abuse (Acute) Hypertension, uncontrolled (Chronic) Hypertension (Chronic) Drug abuse and dependence (Chronic) Plan of Treatment: Continue with present treatment and follow up plan. Pt is to keep follow up appointment as instructed and take medications as ordered. Discharge Medications Discharge Medications: lisinopril Allergy (Verified 07/15/21 12:28) CONTINUE taking the following medications metoprolol succinate 100 mg tablet,extended release 24 hr 100 mg PO BID 05/05/22 [History] New Prescriptions benzonatate 100 mg capsule 100 mg PO TID PRN 10 days #30 caps 05/10/22 [Rx] clonidine HCl 0.2 mg tablet 0.2 mg PO BID 30 days #60 tabs 05/10/22 [Rx] hydralazine 25 mg tablet 25 mg PO BID 30 days #60 tabs 05/10/22 [Rx] hydrocodone 10 mg-chlorpheniramine 8 mg/5 mL oral susp extend.rel 12hr 5 ml PO Q12H PRN 10 days #150 mL 05/10/22 [Rx] Discharge Plan Discharge Plan Hospital Course: Pt is a 52 year old male past medical history of Hypertension, CKD stage IV, admitted for Hypertension urgency, NSTEMI, Cocaine use, and Influenza A. His hospital/treatment course included being weaned off cardene gtt and placed back on his home medications. Home blood pressure medications had to adjusted due to non-compliance at home. He did have an elevated troponin level likely due to heart strain from drug abuse and hypertensive urgency with chronic kidney disease that trended back down after blood pressure controlled and 48 hours of heparin gtt. He did receive Tamiflu at renal dosing for Influenza A. Pt did have productive sputum and sputum cultures showed normal rossana. However, on over the weekend and on discharge sputum had greenish color, rx levaquin x 5 days. Pt will need to follow up with his statistics tutor outpatient for his chronic renal disease as well as cardiology. Pt responded well to treatment. He was discharged in stable condition, instructed to follow up with pcp in 3-5 days. Patient Disposition: 01 HOME, SELF-CARE Condition: Stable Health Concerns: Post Hospitalization: new medications and changes needed to prevent readmission or further decline. Pt educated and given instructions on all concerns. Care Plan Goals: Problem: Cardiac Complications Goal: Early Recognition of cardiac complications for prompt intervention Instructions: Follow provided instructions. Follow up with primary physician as directed. Contact primary care physician or report to the closest Emergency Room if condition worsens. Problem: Infection Goal: Temperature within normal limits. Resolved infection. Instructions: Follow provided instructions. Follow up with primary physician as directed. Contact primary care physician or report to the closest Emergency Room if condition worsens. Plan of Treatment: Continue with present treatment and follow up plan. Pt is to keep follow up appointment as instructed and take medications as ordered. Prescriptions: New hydralazine 25 mg Tablet 25 mg PO BID 30 Days Qty: 60 0RF clonidine HCl 0.2 mg Tablet 0.2 mg PO BID 30 Days Qty: 60 0RF benzonatate 100 mg Capsule 100 mg PO TID PRN10 Days Qty: 30 0RF hydrocodone-chlorpheniramine 10-8 mg/5 mL Suspension,Extended Rel 12 Hr 5 ml PO Q12H MDD 10mL PRN10 Days Qty: 150 0RF Continued metoprolol succinate 100 mg Tablet Extended Release 24 Hr 100 mg PO BID Discontinued warfarin 5 mg tablet 10 mg PO DAILY labetalol 200 mg tablet 1 tab PO BID Label Comments: [NO ORIGINAL SIG] oxycodone 10 mg Tablet 10 mg PO BID PRN Follow ups/Referrals Follow ups/Referrals: Kareem Guillory [Primary Care Provider] - 05/17/22 2:30 pm Instructions Instructions: Steps to Quit Smoking, Jymp-lb-Bbaz, Influenza, Adult, Pcml-fl-Plyy, Cocaine Use Disorder, Hypertension, Adult, Zefa-qd-Ztck, Heart Attack, Svwr-os-Lsow, Chronic Kidney Disease, Adult, Mkvt-tk-Sdjr Stand Alone Forms: Precautions for [place] [address], [facility], Patient Portal, Social Distancing Patient Education Addl Reference Links: Hypertension, Adult [email or web address]=Male &[email or web address]=[email or web address]&performer=[email or web address]&informationRecipient=[email or web address]&[email or web address] Code.c=en&[email or web address].dn=Hypertension&[email or web address]
[2022-05-10 11:35] VITALS: BP 157/93
== END 2022-05-10 11:53 | disposition home or self-care (01) | DRG 281 ==
LOC: U 16:00 → ER 16:00 → OBSVTOIN 20:35 → U 21:57 → ICU 05-05 18:54 → MED/SURG 05-08 11:26
PROVIDERS: ADMIT Internal Medicine; ATTEND Family Medicine
DX: R07.89 Other chest pain; Z20.822 Contact with and (suspected) exposure to COVID-19; R79.82 Elevated C-reactive protein (CRP); I21.4 Non-ST elevation (NSTEMI) myocardial infarction; J10.1 Influenza due to other identified influenza virus with other respiratory manifestations; F12.90 Cannabis use, unspecified, uncomplicated; I16.0 Hypertensive urgency; R26.81 Unsteadiness on feet; R77.8 Other specified abnormalities of plasma proteins; N18.4 Chronic kidney disease, stage 4 (severe); I12.0 Hypertensive chronic kidney disease with stage 5 chronic kidney disease or end stage renal disease; R06.02 Shortness of breath; F14.10 Cocaine abuse, uncomplicated

== ENCOUNTER 2022-10-06 03:23 | Inpatient (IN) ==
[2022-10-06] MEDS ORDERED: APRESOLINE INJ 20 MG VIAL IVP ONE ×2 (03:30→06:01)
[2022-10-06] MEDS ORDERED: DUONEB 0.5 MG/3 MG (3 mL) NEB ONE ×4 (03:32→05:21)
[2022-10-06] MEDS ORDERED: SOLU-Medrol 125 MG VIAL IVP ONE (03:34)
--- NOTE | 2022-10-06 03:34 | DR.SOBA ---
HPI Time Seen Time Seen by Provider: 10/06/22 03:27 HPI Comment HPI Comment: A 52 y/o male presenting with SOB during sleep hours. EMS staff states he was struggling. He was then placed on supplementeal O2. His BP is elevated and he states that he can feel the BP elevation when it is high, as he then hurts by his ribs. Upon inquiry, he states that he last did cocoaine last week. COVID-19 Coronavirus risk:travel/contact w/high risk person: No Has patient experienced Coronavirus symptoms: Yes Coronavirus symptoms experienced: Shortness of Breath Reviewed Nurses Notes Reviewed: Yes Source History Provided: Patient and EMS Mode of Arrival Mode of Arrival: EMS Context Onset:: At Rest PE Risk Factors:: None Currently on:: Neither Prehospital Care:: O2 Modifying Factors Worsens:: Nothing Improves:: Nothing Associated Signs and Symptoms Associated Signs and Symptoms: None PMH PMH Past Medical History: Asthma, Hypertension and Renal Disease Past Surgical History: No Surgical History: Unknown Family History Family Medical History: Diabetes Mellitus Social History Do you use any recreational Drugs:: Yes (MARIJUANA, COCAINE) ROS Review of Systems Constitutional: No Symptoms Reported Eyes: No Symptoms Reported ENTM: No Symptoms Reported Respiratoy: Short of Breath Cardiovascular: No Symptoms Reported Gastrointestinal/Abdominal: No Symptoms Reported Genitourinary: No Symptoms Reported Neurological: No Symptoms Reported Musculoskeletal: No Symptoms Reported Integumentary: No Symptoms Reported Hematologic/Lymphatic: No Symptoms Reported Endocrine: No Symptoms Reported Psychiatric: No Symptoms Reported All Other Systems: Reviewed and Negative PE Vital Signs Vitals: Temperature 98.3 F Pulse Rate [Left] 102 Pulse Rate 92 Respiratory Rate 20 Blood Pressure [Left Arm] 237/144 Blood Pressure [Right Arm] 156/94 Blood Pressure [Left Arm] 182/95 Blood Pressure 225/151 O2 Sat by Pulse Oximetry 98 General Limitations: No Limitations General Appearance: Alert and In No Apparent Distress Head Head Exam: Normal Inspection, Atraumatic and Normocephalic Eyes Eye exam: Normal Appearance and EOMI ENT ENT Exam: Normal Exam, Normal Oropharynx, Normal External Ear Exam and Mucous Membranes Moist Neck Neck Exam: Normal Inspection, Full ROM and Trachea Midline Chest Chest Inspection: Normal Inspection and Symmetric Chest Wall Rise Respiratory Respiratory Exam: Normal Lung Sounds Bilat Cardiovascular Cardiovascular Exam: Regular Rate, Normal Rhythm, Normal Heart Sounds, +S1 and +S2 Abdominal Exam Abdominal Exam: Normal Inspection, Normal Bowel Sounds and Soft Extremities Extremities Exam: Normal Inspection and Full ROM Back Back Exam: Normal Inspection and Full ROM Neurologic Neurological Exam: Alert and Oriented X3 Psychiatric Psychiatric Exam: Normal Affect and Normal Mood Skin Skin Exam: Dry, Intact and Normal Color COURSE Treatment Treatment: He is still using street drugs. His renal status has worsened and he has not been to art glass setter as discussed with him during his May 2022 admission (per d/c summary). He has received Hydralazine IV. Due to multi-organ illness going on and current drug use, I'd spoken with welder production line combination physician (Dr. Ahn) and Doc. agrees to place him here for now to see how to his does with gentle hydration. I started him on antibiotics and placed him on Labetolol drip. Education/Counseling Education/Counseling: Patient, Education and Counseling Educated On: Treatment, Diagnosis, Prognosis and Needs for Follow Up ROR Labs Reviewed Result Diagrams: 10/06/22 04:15 10/06/22 04:15 Laboratory: WBC 7.9 X10^3/uL (3.6-10.0) 10/06/22 04:15 RBC 3.68 X10^6/uL (4.7-6.0) L 10/06/22 04:15 Hgb 11.4 g/dL (13.5-18.0) L 10/06/22 04:15 Hct 33.9 % (42.0-54.0) L 10/06/22 04:15 MCV 92.1 fL (80.0-100.0) 10/06/22 04:15 MCH 30.9 pg (27.0-34.0) 10/06/22 04:15 MCHC 33.5 g/dL (33.0-35.0) 10/06/22 04:15 RDW 14.7 % (11.6-16.5) 10/06/22 04:15 Plt Count 313 X10^3/uL (150.0-450.0) 10/06/22 04:15 MPV 9.5 fL (7.4-11.0) 10/06/22 04:15 Neut % (Auto) 61.3 % (42.0-75.0) 10/06/22 04:15 Lymph % (Auto) 17.0 % (21.0-51.0) L 10/06/22 04:15 [place] % (Auto) 10.0 % (0.0-13.0) 10/06/22 04:15 Eos % (Auto) 10.2 % (0.9-2.9) H 10/06/22 04:15 Baso % (Auto) 1.5 % (0.2-1.0) H 10/06/22 04:15 Neut # (Auto) 4.9 x10^3/uL (2.2-4.8) H 10/06/22 04:15 Lymph # (Auto) 1.3 X10^3/uL (1.3-2.9) 10/06/22 04:15 [place] # (Auto) 0.8 x10^3/uL (0.3-0.8) 10/06/22 04:15 Eos # (Auto) 0.8 x10^3/uL (0.0-0.2) H 10/06/22 04:15 Baso # (Auto) 0.1 X10^3/uL (0.0-0.1) 10/06/22 04:15 Absolute Nucleated RBC 0.0 /100WBC 10/06/22 04:15 Sodium 142 mmol/L (136-145) 10/06/22 04:15 Corrected Sodium 142 mmol/L (136-145) 10/06/22 04:15 Potassium 4.6 mmol/L (3.5-5.1) 10/06/22 04:15 Chloride 110 mmol/L (98-107) H 10/06/22 04:15 Carbon Dioxide 15.0 mmol/L (21-32) L 10/06/22 04:15 BUN 55 mg/dL (7-18) H 10/06/22 04:15 Creatinine 7.87 mg/dL (0.70-1.30) H 10/06/22 04:15 Est GFR (MDRD) Af Amer 9 (>60) L 10/06/22 04:15 Est GFR (MDRD) Non-Af 8 (>60) L 10/06/22 04:15 Glucose 114 mg/dL (65-99) H 10/06/22 04:15 Calcium 8.1 mg/dL (8.5-10.1) L 10/06/22 04:15 Corrected Calcium TNP 10/06/22 04:15 Total Bilirubin 0.40 mg/dL (0.2-1.0) 10/06/22 04:15 AST 138 Units/L (15-37) H 10/06/22 04:15 ALT 201 Units/L (12-78) H 10/06/22 04:15 Alkaline Phosphatase 83 Units/L (46-116) 10/06/22 04:15 Creatine Kinase 602 Units/L (39-308) H 10/06/22 04:15 Troponin I High Sens 105.8 ng/L (4.0-60.0) H* 10/06/22 04:15 B-Natriuretic Peptide 1450 pg/mL (0-79) H* 10/06/22 04:15 Total Protein 6.7 g/dL (6.4-8.2) 10/06/22 04:15 Albumin 3.4 g/dL (3.4-5.0) 10/06/22 04:15 Globulin 3.3 g/dL (2.5-4.5) 10/06/22 04:15 Albumin/Globulin Ratio 1.0 Ratio (1.1-2.1) L 10/06/22 04:15 Specimen Type Clean catch urine 10/06/22 05:22 Urine Color Yellow (YELLOW) 10/06/22 05:22 Urine Appearance Clear (CLEAR) 10/06/22 05:22 Urine pH 6.0 (5.0 - 8.0) 10/06/22 05:22 Ur Specific [place] 1.010 (1.000-1.030) 10/06/22 05:22 Urine Protein 4+ (NEGATIVE) 10/06/22 05:22 Urine Glucose (UA) 2+ (NEGATIVE) 10/06/22 05:22 Urine Ketones Negative (NEGATIVE) 10/06/22 05:22 Urine Blood 3+ (NEGATIVE) 10/06/22 05:22 Urine Nitrite Negative (NEGATIVE) 10/06/22 05:22 Urine Bilirubin Negative (NEGATIVE) 10/06/22 05:22 Urine Urobilinogen Normal (NORMAL) 10/06/22 05:22 Ur Leukocyte Esterase Negative (NEGATIVE) 10/06/22 05:22 Urine RBC 3-5 /HPF (0-3) A 10/06/22 05:22 Urine WBC 0-2 /HPF (0-5) 10/06/22 05:22 Ur Squamous Epith Cells Few /HPF (NEGATIVE) 10/06/22 05:22 Urine Bacteria Trace /HPF (NEGATIVE) 10/06/22 05:22 Hyaline Casts Few /LPF (NEGATIVE) 10/06/22 05:22 Urine Mucus Few /HPF (NEGATIVE) 10/06/22 05:22 Ur Culture Indicated? No/not indicated 10/06/22 05:22 Urine Opiates Screen Negative (NEG=<300) 10/06/22 05:22 Urine Methadone Screen Negative (NEG=<300) 10/06/22 05:22 Ur Barbiturates Screen Negative (NEG=<200) 10/06/22 05:22 Ur Phencyclidine Scrn Negative (NEG=<25) 10/06/22 05:22 Ur Amphetamines Screen Negative (NEG=<1000) 10/06/22 05:22 U Benzodiazepines Scrn Negative (NEG=<200) 10/06/22 05:22 Urine Cocaine Screen Positive (NEG=<300) 10/06/22 05:22 U Marijuana (THC) Screen Negative (NEG=<50) 10/06/22 05:22 XRAY XRAY Interpreted by: Self X-ray Results: CXR: patchy mid-lung infiltrates b/l. Radiology report is pending. EKG Rate: 97 [place]: Normal Rhythm: NSR Block: None Hypertrophy: LVH ST: Normal Opioid Opioid Risk Tool Family Hx of Substance Abuse: Alcohol Personal Hx of Substance Abuse: Alcohol Age (Nav box if 16-45): No History of Preadolescent Sexual Abuse: No Psychological Disease: Depression Total: 0 Total Score Risk Category: Low Risk Copyright: [facility] predicting aberrant behaviors Discharge Plan Diagnosis Discharge Problem: RML pneumonia, Hypertension, uncontrolled, Non-ST elevation SD (NSTEMI), CKD (chronic kidney disease) stage 5, GFR less than 15 ml/min, Current recreational drug use, Elevated LFTs Discharge Plan Patient Disposition: 09 ADMITTED INPATIENT Condition: Stable Orders to Discharge Patient Discharge Orders: Transfer (Routine); Ordered 10/06/22 Ordered By: CECILE TAYLOR ADDITIONAL NOTES Additional Notes Additional Notes: Name: GLORIALEODANJULIUSCLAYTONSofi RAcct#: [id number]: [id number]: [id number]: MLocation: EROrder Number(s): [id number](s):CHEST, 1 VIEW Ordering Physician: CECILE TAYLOR Primary Care: Kareem Guillory Service Date: 10/06/22 Service Time: 0425 PROCEDURE: Chest X-ray 1 View . HISTORY: Dyspnea. TECHNIQUE: AP portable done at 4:26 a.m.. COMPARISON: 05/10/2022. TECHNICAL QUALITY: Satisfactory . FINDINGS: Heart size upper limits of normal increased compared to previous study. Possible right hilar lymphadenopathy that is appeared since previous exam. Normal central vascularity . Mild consolidation both mid lung aguirre greatest on the right. No pleural fluid or masses. No acute bony abnormality . IMPRESSION: 1. Mild pneumonia both mid lung aguirre greatest on the right. 2. Possible right hilar lymphadenopathy. 3. Heart size upper limits of normal and increased compared to previous study. Electronically signed by: Apolinar Farfan (Oct 06, 2022 05:00:09) Report Electronically signed: 10/06/22 [id number] CC: Cecile Taylor
[2022-10-06] MEDS ORDERED: APRESOLINE INJ 20 MG VIAL ONE ×2 (03:35→06:20)
[2022-10-06] MEDS ORDERED: SOLU-Medrol 125 MG VIAL ONE (03:37)
--- NOTE | 2022-10-06 04:03 | EKG ---
Test Reason : SOB, HTN Blood Pressure : */* mmHG Vent. Rate : 97 BPM Atrial Rate : 97 BPM P-R Int : 134 ms QRS Dur : 86 ms QT Int : 368 ms P-R-T Axes : 67 46 85 degrees QTc Int : 467 ms Normal sinus rhythm Biatrial enlargement Left ventricular hypertrophy ( Sokolow-Arita , [place] product ) Abnormal ECG No previous ECGs available Referred By: Confirmed By:
[2022-10-06 04:44] LABS: BASOPHILS # (AUTO) 0.1 X10^3/uL (0.0-0.1); BASOPHILS % (AUTO) 1.5 % (0.2-1.0); EOSINOPHILS # (AUTO) 0.8 x10^3/uL (0.0-0.2); EOSINOPHILS % (AUTO) 10.2 % (0.9-2.9); HEMATOCRIT 33.9 % (42.0-54.0); HEMOGLOBIN 11.4 g/dL (13.5-18.0); LYMPHOCYTES # (AUTO) 1.3 X10^3/uL (1.3-2.9); MEAN CORPUSCULAR HEMOGLOBIN 30.9 pg (27.0-34.0); MEAN CORPUSCULAR HGB CONC 33.5 g/dL (33.0-35.0); MEAN CORPUSCULAR VOLUME 92.1 fL (80.0-100.0); MEAN PLATELET VOLUME 9.5 fL (7.4-11.0); MONOCYTES # (AUTO) 0.8 x10^3/uL (0.3-0.8); NEUTROPHILS # (AUTO) 4.9 x10^3/uL (2.2-4.8); NEUTROPHILS % (AUTO) 61.3 % (42.0-75.0); RED BLOOD COUNT 3.68 X10^6/uL (4.7-6.0); RED CELL DISTRIBUTION WIDTH 14.7 % (11.6-16.5); WHITE BLOOD COUNT 7.9 X10^3/uL (3.6-10.0)
[2022-10-06 04:57] LABS: ALANINE AMINOTRANSFERASE 201 Units/L (12-78); ALBUMIN 3.4 g/dL (3.4-5.0); ALKALINE PHOSPHATASE 83 Units/L (46-116); ASPARTATE AMINO TRANSFERASE 138 Units/L (15-37); BLOOD UREA NITROGEN 55 mg/dL (7-18); CALCIUM 8.1 mg/dL (8.5-10.1); CHLORIDE 110 mmol/L (98-107); COR NA(FOR HYPERGLY) 142 mmol/L (136-145); CREATININE 7.87 mg/dL (0.70-1.30); SODIUM 142 mmol/L (136-145); TOTAL PROTEIN 6.7 g/dL (6.4-8.2); eGFR NON BLACK RACES 8 (>60)
--- NOTE | 2022-10-06 05:01 | RAD ---
PROCEDURE: Chest X-ray 1 View .HISTORY: Dyspnea.TECHNIQUE: AP portable done at 4:26 a.m..COMPARISON: 05/10/2022.TECHNICAL QUALITY: Satisfactory .FINDINGS:Heart size upper limits of normal increased compared to previous study.Possible right hilar lymphadenopathy that is appeared since previous exam.Normal central vascularity .Mild consolidation both mid lung aguirre greatest on the right. No pleural fluid or masses.No acute bony abnormality .IMPRESSION:1. Mild pneumonia both mid lung aguirre greatest on the right.2. Possible right hilar lymphadenopathy.3. Heart size upper limits of normal and increased compared to previous study.Electronically signed by: Apolinar Farfan (Oct 06, 2022 05:00:09)
[2022-10-06] MEDS ORDERED: ROCEPHIN 1 GRAM IV PREMIX 1 G/50 ML IV.SOLN. IV ONE (05:03)
[2022-10-06] MEDS ORDERED: NS 50 ML IV 50 ML IV ONE (05:11)
[2022-10-06] MEDS ORDERED: ROCEPHIN VIAL 1 GRAM ONE (05:11)
[2022-10-06 05:40] LABS: BILIRUBIN,URINE NEGATIVE (NEGATIVE); BLOOD/HEMOGLOBIN,URINE 3+ (NEGATIVE); GLUCOSE, URINE 2+ (NEGATIVE); KETONES,URINE NEGATIVE (NEGATIVE); LEUKOCYTE ESTERASE ,URINE NEGATIVE (NEGATIVE); NITRITES,URINE NEGATIVE (NEGATIVE); PROTEIN,URINE 4+ (NEGATIVE); UROBILINOGEN,URINE NORMAL (NORMAL)
[2022-10-06 05:43] LABS: APPEARANCE,URINE CLEAR (CLEAR); COLOR,URINE YELLOW (YELLOW)
[2022-10-06] MEDS ORDERED: LASIX IVP ONE ×2 (05:44→05:45)
[2022-10-06 05:51] LABS: BACTERIA,URINE TRACE /HPF (NEGATIVE); HYALINE CASTS, URINE FEW /LPF (NEGATIVE); SQUAMOUS EPITHELIAL CELL,UR FEW /HPF (NEGATIVE)
[2022-10-06] MEDS ORDERED: NORMODYNE INJ 100 MG VIAL ONE ×3 (06:36→22:12)
[2022-10-06] MEDS ORDERED: NS 250 ML IV 250 ML IV ONE ×2 (06:36→22:24)
[2022-10-06] MEDS ORDERED: NS 1,000 ML IV 1,000 ML ONE (06:50)
[2022-10-06] MEDS ORDERED: NS 1/2 1,000 ML IV 1,000 ML IV SCH (07:00)
[2022-10-06] MEDS ORDERED: NORMODYNE INJ 100 MG VIAL 250 MG in NS 250 ML IV 200 ML IV PRN (07:14)
[2022-10-06 08:09] VITALS: BMI 24.5
[2022-10-06] MEDS ORDERED: PULMICORT NEB TX 0.5 MG NEB ONE (08:11)
[2022-10-06] MEDS: NS 1/2 1,000 ML IV 1,000 ML IV SCH ×2 (08:13→20:34)
[2022-10-06] MEDS: PULMICORT NEB TX 0.5 MG NEB SCH ×2 (08:29→21:00)
[2022-10-06] MEDS: PROVENTIL NEB TX 0.083% 2.5MG/ 3ML NEB SCH ×4 (08:29→21:00)
[2022-10-06] MEDS ORDERED: NS 1/2 1,000 ML IV 1,000 ML IV ONE ×2 (08:33→20:11)
[2022-10-06] MEDS: ROBITUSSIN DM PO SCH ×4 (08:43→20:33)
[2022-10-06] MEDS: VSL#3 PO SCH (08:43)
[2022-10-06] MEDS ORDERED: LEVAQUIN PREMIX IV 750 MG 750 MG/150 ML BAG IV SCH (09:00)
[2022-10-06] MEDS ORDERED: PULMICORT NEB TX 0.5 MG NEB SCH ×2 (09:00)
[2022-10-06] MEDS ORDERED: LEVAQUIN PREMIX IV 500 MG 500 MG/100 ML BAG IV SCH (09:00)
--- NOTE | 2022-10-06 13:24 | DR.H&P ---
H&P History & Physical for Day of: H&P Date: 10/06/22 Chief Complaint Chief Complaint: Shortness of breath Allergies Allergies Allergy/AdvReac Type Severity Reaction Status Date / Time lisinopril Allergy Verified 10/06/22 03:36 History of Present Illness History of Present Illness: This is a 52-year-old black male who was struggling to breathe at home and EMS was called. After EMS arrived they also reported he was struggling to breathe and placed him on supplemental O2. His blood pressure was found to be elevated and he reported feeling his blood pressure was elevated. He reported to hurting in his ribs and he reported to doing cocaine last week sometime. He has known chronic kidney disease and diabetes mellitus type 2 also uses recreational drugs consisting of marijuana and cocaine. His creatinine was found to be 7.7 and he has a normal baseline creatinine that runs in the fives. He is post to be seen Dr. Escobar the wheelman that comes here to [facility] but he has not done so yet. He normally sees Dr. Guillory as his primary care physician. However he reports that he does not see him very often. His troponin was also found to be elevated but given his elevated creatinine I suspect it is falsely elevated. I do not see a EKG at this time. However it is noted that his second troponin has been trending down. Chest x-ray was done and showed that he had bilateral consolidations in both of his mid lungs consistent with pneumonia bilaterally as well. Past Medical History Past Medical History: Asthma, Hypertension and Renal Disease Past Surgical History Surgical History: Unknown Family History Family Medical History: Diabetes Mellitus and Heart Failure Social History Does patient currently use any type of tobacco product: Yes Have you used tobacco products in the last 12 months: Yes Type of Tobacco Use: Cigarettes Does any household member use tobacco: Yes Alcohol Use: Heavy Drug Use: Cocaine Medications Home Medications: lisinopril Allergy (Verified 10/06/22 03:36) Labs Result Diagrams: 10/06/22 04:15 10/06/22 04:15 Labs: Laboratory WBC 7.9 X10^3/uL (3.6-10.0) 10/06/22 04:15 RBC 3.68 X10^6/uL (4.7-6.0) L 10/06/22 04:15 Hgb 11.4 g/dL (13.5-18.0) L 10/06/22 04:15 Hct 33.9 % (42.0-54.0) L 10/06/22 04:15 MCV 92.1 fL (80.0-100.0) 10/06/22 04:15 MCH 30.9 pg (27.0-34.0) 10/06/22 04:15 MCHC 33.5 g/dL (33.0-35.0) 10/06/22 04:15 RDW 14.7 % (11.6-16.5) 10/06/22 04:15 Plt Count 313 X10^3/uL (150.0-450.0) 10/06/22 04:15 MPV 9.5 fL (7.4-11.0) 10/06/22 04:15 Neut % (Auto) 61.3 % (42.0-75.0) 10/06/22 04:15 Lymph % (Auto) 17.0 % (21.0-51.0) L 10/06/22 04:15 [place] % (Auto) 10.0 % (0.0-13.0) 10/06/22 04:15 Eos % (Auto) 10.2 % (0.9-2.9) H 10/06/22 04:15 Baso % (Auto) 1.5 % (0.2-1.0) H 10/06/22 04:15 Neut # (Auto) 4.9 x10^3/uL (2.2-4.8) H 10/06/22 04:15 Lymph # (Auto) 1.3 X10^3/uL (1.3-2.9) 10/06/22 04:15 [place] # (Auto) 0.8 x10^3/uL (0.3-0.8) 10/06/22 04:15 Eos # (Auto) 0.8 x10^3/uL (0.0-0.2) H 10/06/22 04:15 Baso # (Auto) 0.1 X10^3/uL (0.0-0.1) 10/06/22 04:15 Absolute Nucleated RBC 0.0 /100WBC 10/06/22 04:15 Sodium 142 mmol/L (136-145) 10/06/22 04:15 Corrected Sodium 142 mmol/L (136-145) 10/06/22 04:15 Potassium 4.6 mmol/L (3.5-5.1) 10/06/22 04:15 Chloride 110 mmol/L (98-107) H 10/06/22 04:15 Carbon Dioxide 15.0 mmol/L (21-32) L 10/06/22 04:15 BUN 55 mg/dL (7-18) H 10/06/22 04:15 Creatinine 7.87 mg/dL (0.70-1.30) H 10/06/22 04:15 Est GFR (MDRD) Af Amer 9 (>60) L 10/06/22 04:15 Est GFR (MDRD) Non-Af 8 (>60) L 10/06/22 04:15 Glucose 114 mg/dL (65-99) H 10/06/22 04:15 Calcium 8.1 mg/dL (8.5-10.1) L 10/06/22 04:15 Corrected Calcium TNP 10/06/22 04:15 Total Bilirubin 0.40 mg/dL (0.2-1.0) 10/06/22 04:15 AST 138 Units/L (15-37) H 10/06/22 04:15 ALT 201 Units/L (12-78) H 10/06/22 04:15 Alkaline Phosphatase 83 Units/L (46-116) 10/06/22 04:15 Creatine Kinase 602 Units/L (39-308) H 10/06/22 04:15 Troponin I High Sens 83.0 ng/L (4.0-60.0) H* 10/06/22 10:08 B-Natriuretic Peptide 1450 pg/mL (0-79) H* 10/06/22 04:15 Total Protein 6.7 g/dL (6.4-8.2) 10/06/22 04:15 Albumin 3.4 g/dL (3.4-5.0) 10/06/22 04:15 Globulin 3.3 g/dL (2.5-4.5) 10/06/22 04:15 Albumin/Globulin Ratio 1.0 Ratio (1.1-2.1) L 10/06/22 04:15 Specimen Type Clean catch urine 10/06/22 05:22 Urine Color Yellow (YELLOW) 10/06/22 05:22 Urine Appearance Clear (CLEAR) 10/06/22 05:22 Urine pH 6.0 (5.0 - 8.0) 10/06/22 05:22 Ur Specific [place] 1.010 (1.000-1.030) 10/06/22 05:22 Urine Protein 4+ (NEGATIVE) 10/06/22 05:22 Urine Glucose (UA) 2+ (NEGATIVE) 10/06/22 05:22 Urine Ketones Negative (NEGATIVE) 10/06/22 05:22 Urine Blood 3+ (NEGATIVE) 10/06/22 05:22 Urine Nitrite Negative (NEGATIVE) 10/06/22 05: Urine Bilirubin Negative (NEGATIVE) 10/06/22 05:22 Urine Urobilinogen Normal (NORMAL) 10/06/22 05:22 Ur Leukocyte Esterase Negative (NEGATIVE) 10/06/22 05:22 Urine RBC 3-5 /HPF (0-3) A 10/06/22 05:22 Urine WBC 0-2 /HPF (0-5) 10/06/22 05:22 Ur Squamous Epith Cells Few /HPF (NEGATIVE) 10/06/22 05:22 Urine Bacteria Trace /HPF (NEGATIVE) 10/06/22 05:22 Hyaline Casts Few /LPF (NEGATIVE) 10/06/22 05:22 Urine Mucus Few /HPF (NEGATIVE) 10/06/22 05:22 Ur Culture Indicated? No/not indicated 10/06/22 05:22 Urine Opiates Screen Negative (NEG=<300) 10/06/22 05:22 Urine Methadone Screen Negative (NEG=<300) 10/06/22 05:22 Ur Barbiturates Screen Negative (NEG=<200) 10/06/22 05:22 Ur Phencyclidine Scrn Negative (NEG=<25) 10/06/22 05:22 Ur Amphetamines Screen Negative (NEG=<1000) 10/06/22 05:22 U Benzodiazepines Scrn Negative (NEG=<200) 10/06/22 05:22 Urine Cocaine Screen Positive (NEG=<300) 10/06/22 05:22 U Marijuana (THC) Screen Negative (NEG=<50) 10/06/22 05:22 SARS-CoV-2 (PCR) Negative (NEGATIVE) 10/06/22 10:00 Influenza Type A (PCR) Negative (NEGATIVE) 10/06/22 10:00 Influenza Type B (PCR) Negative (NEGATIVE) 10/06/22 10:00 RSV (PCR) Negative (NEGATIVE) 10/06/22 10:00 Review of Systems Constitutional: Weakness and Malaise Eyes: No Symptoms Reported ENT: No Symptoms Reported Respiratory: Cough and SOB with Excertion Cardiovascular: Chest Pain Gastrointestinal: No Symptoms Reported Genitourinary: No Symptoms Reported Musculoskeletal: No Symptoms Reported Skin: No Symptoms Reported Neurological: No Symptoms Reported Physical Exam Vital Signs: Temperature 98.3 F Pulse Rate [Left] 102 Pulse Rate 66 Respiratory Rate 14 Blood Pressure [Left Arm] 190/94 Blood Pressure [Right Arm] 156/94 Blood Pressure [Left Arm] 182/95 Blood Pressure 143/90 O2 Sat by Pulse Oximetry 100 Oriented: Normal, Time, Person and Place Eyes: Normal Ear: Normal Nose: Normal Throat: Normal Respiratory: Clear Throughout Cardiovascular: Normal : Normal Palpation: Normal Tenderness: Normal Skin: Normal Musculoskeletal: Normal Psychiatric: Normal Mood Description: Calm Affect: Normal Speech Pattern: Clear Assessment/Plan (1) Hypertension, uncontrolled: Status: Acute Plan: Labetalol drip (2) CKD (chronic kidney disease) stage 5, GFR less than 15 ml/min: Narrative Support Text: Patient has been acute on chronic renal failure. Status: Acute Plan: Slow IV hydration with normal saline at 75 cc an hour. (3) Bilateral pneumonia: Status: Acute Plan: Patient is currently receiving Levaquin. (4) Cocaine abuse: Status: Acute Plan: Counseled on stopping cocaine use (5) Noncompliance with medication regimen: Status: Acute (6) Chest pain: Qualifiers: Chest pain type: unspecified Qualified Code(s): R07.9 - Chest pain, unspecified Status: Acute Plan: Chest pain rule out LA with serial cardiac enzymes and EKGs. Review H&P Reviewed: Yes Patient was examined?: Yes
[2022-10-06] MEDS: NORMODYNE INJ 100 MG VIAL 250 MG in NS 250 ML IV 200 ML IV PRN ×3 (13:27→22:39)
[2022-10-06] MEDS: HEPARIN SODIUM INJ 5000 UNITS SC SCH ×2 (14:09→20:33)
[2022-10-06 16:47] LABS: CALCIUM 7.9 mg/dL (8.5-10.1); CARBON DIOXIDE 19.1 mmol/L (21-32); CREATININE 7.71 mg/dL (0.70-1.30)
[2022-10-07] MEDS: PROVENTIL NEB TX 0.083% 2.5MG/ 3ML NEB SCH ×6 (01:00→20:58)
[2022-10-07] MEDS ORDERED: NS 250 ML IV 250 ML IV ONE (02:29)
[2022-10-07] MEDS: NORMODYNE INJ 100 MG VIAL 250 MG in NS 250 ML IV 200 ML IV PRN (02:45)
[2022-10-07 05:00] LABS: BASOPHILS % (AUTO) 0.5 % (0.2-1.0); EOSINOPHILS # (AUTO) 0.2 x10^3/uL (0.0-0.2); EOSINOPHILS % (AUTO) 1.8 % (0.9-2.9); HEMATOCRIT 27.6 % (42.0-54.0); LYMPHOCYTES # (AUTO) 0.8 X10^3/uL (1.3-2.9); LYMPHOCYTES % (AUTO) 8.6 % (21.0-51.0); MEAN CORPUSCULAR HEMOGLOBIN 30.8 pg (27.0-34.0); MEAN CORPUSCULAR HGB CONC 33.5 g/dL (33.0-35.0); MEAN CORPUSCULAR VOLUME 92.1 fL (80.0-100.0); MEAN PLATELET VOLUME 9.9 fL (7.4-11.0); MONOCYTES # (AUTO) 0.6 x10^3/uL (0.3-0.8); MONOCYTES % (AUTO) 6.5 % (0.0-13.0); NEUTROPHILS # (AUTO) 7.5 x10^3/uL (2.2-4.8); NEUTROPHILS % (AUTO) 82.6 % (42.0-75.0); RED BLOOD COUNT 2.99 X10^6/uL (4.7-6.0); RED CELL DISTRIBUTION WIDTH 15.2 % (11.6-16.5); WHITE BLOOD COUNT 9.1 X10^3/uL (3.6-10.0)
[2022-10-07 05:04] LABS: HEMOGLOBIN 9.2 g/dL (13.5-18.0)
[2022-10-07 05:13] LABS: ALANINE AMINOTRANSFERASE 128 Units/L (12-78); ALBUMIN 2.6 g/dL (3.4-5.0); ALKALINE PHOSPHATASE 61 Units/L (46-116); ASPARTATE AMINO TRANSFERASE 51 Units/L (15-37); BLOOD UREA NITROGEN 56 mg/dL (7-18); CALCIUM 7.5 mg/dL (8.5-10.1); CARBON DIOXIDE 17.3 mmol/L (21-32); CHLORIDE 108 mmol/L (98-107); COR CA(FOR HYPOALB) 8.6 mg/dL (8.5-10.1); CREATININE 7.79 mg/dL (0.70-1.30); SODIUM 138 mmol/L (136-145); TOTAL PROTEIN 5.2 g/dL (6.4-8.2); eGFR NON BLACK RACES 8 (>60)
--- NOTE | 2022-10-07 07:39 | RAD ---
HISTORYHTN, SOBSTUDYCHEST, 1 LQGAPORPBIELNT42/01/2022.TECHNIQUEAP view of the chestFINDINGSThe cardiac and mediastinal contours appear stable. There is blunting of the costophrenic sulci. The improved patchy mid lung opacities. No pneumothorax.IMPRESSIONImproved patchy mid lung opacities may represent improved pneumonia. Blunted costophrenic sulci can be seen with small pleural effusions or pleuro-parynchemal scarring.Electronically signed by: Beto Barron (Oct 07, 2022 07:37:34)
[2022-10-07] MEDS ORDERED: ROCEPHIN 1 GRAM IV PREMIX 1 G/50 ML IV.SOLN. IV SCH (08:22)
[2022-10-07] MEDS: PULMICORT NEB TX 0.5 MG NEB SCH ×2 (08:26→20:58)
[2022-10-07] MEDS ORDERED: NS 1/2 1,000 ML IV 1,000 ML IV ONE ×2 (08:43→23:11)
[2022-10-07] MEDS: ROCEPHIN VIAL 1 GRAM 1 G in NS 100 ML IV 100 ML IV SCH (08:55)
[2022-10-07] MEDS: NS 1/2 1,000 ML IV 1,000 ML IV SCH ×3 (08:56→23:14)
[2022-10-07] MEDS: VSL#3 PO SCH (08:58)
[2022-10-07] MEDS: ROBITUSSIN DM PO SCH ×5 (08:58→21:13)
[2022-10-07] MEDS: CATAPRES TAB 0.1 MG PO SCH (08:58)
[2022-10-07] MEDS: HEPARIN SODIUM INJ 5000 UNITS SC SCH ×2 (09:04→21:14)
--- NOTE | 2022-10-07 12:59 | PCM.PROG ---
Progress Note Progress Note for Day of Date of Exam: 10/07/22 Subjective Subjective: Patient seen at bedside, no events overnight. His BP has been well- controlled. He is currently on labetalol drip. He states he feels better. He is on 2L NC. He reports not following up with Nephro. Denies N/V/D. He states cough is better. Patient is having urine output. No lower ext edema. Labs reviewed: Hgb 9.2 BUN/Cr: 56/7.79 CXR: improvement in pneumonia Plan: Continue gentle hydration, stop labetalol drip and resume home BP medications, hydralazine and clonidine. Monitor BP. Wean O2 as tolerated to keep sats > 92%. Continue IV Rocephin. CM will call Nephro to see if patient was scheduled for a follow up. Monitor AM labs/imaging. Past Medical Family Social History Allergies: Allergies lisinopril Allergy (Verified 10/06/22 03:36) Vital Signs and I&O's Vital Signs: Temperature 98.1 F Pulse Rate [Left] 102 Pulse Rate 60 Respiratory Rate 15 Blood Pressure [Left Arm] 190/94 Blood Pressure [Right Arm] 156/94 Blood Pressure [Left Arm] 182/95 Blood Pressure 134/87 O2 Sat by Pulse Oximetry 99 Intake and Output: Intake & Output 10/04/22 10/05/22 10/06/22 10/07/22 23:59 23:59 23:59 23:59 Intake Total 3589 / 3589 1029 / 1029 Output Total 2330 / 2330 200 / 200 Balance 1259 / 1259 829 / 829 Physical Exam Oriented: Normal, Time, Person and Place Eyes: Normal Ear: Normal Nose: Normal Throat: Normal Cardiovascular: Normal Tenderness: Normal Skin: Normal Musculoskeletal: Normal Psychiatric: Normal Mood Description: Calm Affect: Normal Speech Pattern: Clear and Appropriate Laboratory and Diagnostics Result Diagrams: 10/07/22 04:00 10/07/22 04:00 Labs: Laboratory WBC 9.1 X10^3/uL (3.6-10.0) 10/07/22 04:00 RBC 2.99 X10^6/uL (4.7-6.0) L 10/07/22 04:00 Hgb 9.2 g/dL (13.5-18.0) L D 10/07/22 04:00 Hct 27.6 % (42.0-54.0) L 10/07/22 04:00 MCV 92.1 fL (80.0-100.0) 10/07/22 04:00 MCH 30.8 pg (27.0-34.0) 10/07/22 04:00 MCHC 33.5 g/dL (33.0-35.0) 10/07/22 04:00 RDW 15.2 % (11.6-16.5) 10/07/22 04:00 Plt Count 245 X10^3/uL (150.0-450.0) 10/07/22 04:00 MPV 9.9 fL (7.4-11.0) 10/07/22 04:00 Neut % (Auto) 82.6 % (42.0-75.0) H 10/07/22 04:00 Lymph % (Auto) 8.6 % (21.0-51.0) L 10/07/22 04:00 [place] % (Auto) 6.5 % (0.0-13.0) 10/07/22 04:00 Eos % (Auto) 1.8 % (0.9-2.9) 10/07/22 04:00 Baso % (Auto) 0.5 % (0.2-1.0) 10/07/22 04:00 Neut # (Auto) 7.5 x10^3/uL (2.2-4.8) H 10/07/22 04:00 Lymph # (Auto) 0.8 X10^3/uL (1.3-2.9) L 10/07/22 04:00 [place] # (Auto) 0.6 x10^3/uL (0.3-0.8) 10/07/22 04:00 Eos # (Auto) 0.2 x10^3/uL (0.0-0.2) 10/07/22 04:00 Baso # (Auto) 0.0 X10^3/uL (0.0-0.1) 10/07/22 04:00 Absolute Nucleated RBC 0.0 /100WBC 10/07/22 04:00 Sodium 138 mmol/L (136-145) 10/07/22 04:00 Corrected Sodium TNP 10/07/22 04:00 Potassium 4.1 mmol/L (3.5-5.1) 10/07/22 04:00 Chloride 108 mmol/L (98-107) H 10/07/22 04:00 Carbon Dioxide 17.3 mmol/L (21-32) L 10/07/22 04:00 BUN 56 mg/dL (7-18) H 10/07/22 04:00 Creatinine 7.79 mg/dL (0.70-1.30) H 10/07/22 04:00 Est GFR (MDRD) Af Amer 10 (>60) L 10/07/22 04:00 Est GFR (MDRD) Non-Af 8 (>60) L 10/07/22 04:00 Glucose 100 mg/dL (65-99) H 10/07/22 04:00 Calcium 7.5 mg/dL (8.5-10.1) L 10/07/22 04:00 Corrected Calcium 8.6 mg/dL (8.5-10.1) 10/07/22 04:00 Total Bilirubin 0.40 mg/dL (0.2-1.0) 10/07/22 04:00 AST 51 Units/L (15-37) H 10/07/22 04:00 ALT 128 Units/L (12-78) H 10/07/22 04:00 Alkaline Phosphatase 61 Units/L (46-116) 10/07/22 04:00 Creatine Kinase 602 Units/L (39-308) H 10/06/22 04:15 Troponin I High Sens 58.9 ng/L (4.0-60.0) 10/06/22 21:24 B-Natriuretic Peptide 1080 pg/mL (0-79) H* 10/07/22 04:00 Total Protein 5.2 g/dL (6.4-8.2) L 10/07/22 04:00 Albumin 2.6 g/dL (3.4-5.0) L 10/07/22 04:00 Globulin 2.6 g/dL (2.5-4.5) 10/07/22 04:00 Albumin/Globulin Ratio 1.0 Ratio (1.1-2.1) L 10/07/22 04:00 Specimen Type Clean catch urine 10/06/22 05:22 Urine Color Yellow (YELLOW) 10/06/22 05:22 Urine Appearance Clear (CLEAR) 10/06/22 05:22 Urine pH 6.0 (5.0 - 8.0) 10/06/22 05:22 Ur Specific [place] 1.010 (1.000-1.030) 10/06/22 05:22 Urine Protein 4+ (NEGATIVE) 10/06/22 05:22 Urine Glucose (UA) 2+ (NEGATIVE) 10/06/22 05:22 Urine Ketones Negative (NEGATIVE) 10/06/22 05:22 Urine Blood 3+ (NEGATIVE) 10/06/22 05:22 Urine Nitrite Negative (NEGATIVE) 10/06/22 05:22 Urine Bilirubin Negative (NEGATIVE) 10/06/22 05:22 Urine Urobilinogen Normal (NORMAL) 10/06/22 05:22 Ur Leukocyte Esterase Negative (NEGATIVE) 10/06/22 05:22 Urine RBC 3-5 /HPF (0-3) A 10/06/22 05:22 Urine WBC 0-2 /HPF (0-5) 10/06/22 05:22 Ur Squamous Epith Cells Few /HPF (NEGATIVE) 10/06/22 05:22 Urine Bacteria Trace /HPF (NEGATIVE) 10/06/22 05:22 Hyaline Casts Few /LPF (NEGATIVE) 10/06/22 05:22 Urine Mucus Few /HPF (NEGATIVE) 10/06/22 05:22 Ur Culture Indicated? No/not indicated 10/06/22 05:22 Urine Opiates Screen Negative (NEG=<300) 10/06/22 05:22 Urine Methadone Screen Negative (NEG=<300) 10/06/22 05:22 Ur Barbiturates Screen Negative (NEG=<200) 10/06/22 05:22 Ur Phencyclidine Scrn Negative (NEG=<25) 10/06/22 05:22 Ur Amphetamines Screen Negative (NEG=<1000) 10/06/22 05:22 U Benzodiazepines Scrn Negative (NEG=<200) 10/06/22 05:22 Urine Cocaine Screen Positive (NEG=<300) 10/06/22 05:22 U Marijuana (THC) Screen Negative (NEG=<50) 10/06/22 05:22 SARS-CoV-2 (PCR) Negative (NEGATIVE) 10/06/22 10:00 Influenza Type A (PCR) Negative (NEGATIVE) 10/06/22 10:00 Influenza Type B (PCR) Negative (NEGATIVE) 10/06/22 10:00 RSV (PCR) Negative (NEGATIVE) 10/06/22 10:00 Plan (1) Hypertension, uncontrolled: Status: Acute Plan: Labetalol drip (2) CKD (chronic kidney disease) stage 5, GFR less than 15 ml/min: Status: Acute Plan: Slow IV hydration with normal saline at 75 cc an hour. (3) Bilateral pneumonia: Status: Acute Plan: Patient is currently receiving Levaquin. (4) Cocaine abuse: Status: Acute Plan: Counseled on stopping cocaine use (5) Noncompliance with medication regimen: Status: Acute
[2022-10-07] MEDS: APRESOLINE TAB 25 MG PO SCH ×2 (13:44→21:14)
[2022-10-08] MEDS: PROVENTIL NEB TX 0.083% 2.5MG/ 3ML NEB SCH ×6 (00:22→20:20)
[2022-10-08 05:53] LABS: BASOPHILS % (AUTO) 0.7 % (0.2-1.0); EOSINOPHILS # (AUTO) 0.8 x10^3/uL (0.0-0.2); EOSINOPHILS % (AUTO) 11.7 % (0.9-2.9); HEMATOCRIT 28.6 % (42.0-54.0); HEMOGLOBIN 9.6 g/dL (13.5-18.0); LYMPHOCYTES # (AUTO) 0.8 X10^3/uL (1.3-2.9); LYMPHOCYTES % (AUTO) 11.6 % (21.0-51.0); MEAN CORPUSCULAR HEMOGLOBIN 30.8 pg (27.0-34.0); MEAN CORPUSCULAR HGB CONC 33.5 g/dL (33.0-35.0); MEAN CORPUSCULAR VOLUME 91.9 fL (80.0-100.0); MEAN PLATELET VOLUME 9.2 fL (7.4-11.0); MONOCYTES # (AUTO) 0.5 x10^3/uL (0.3-0.8); MONOCYTES % (AUTO) 6.7 % (0.0-13.0); NEUTROPHILS # (AUTO) 4.8 x10^3/uL (2.2-4.8); NEUTROPHILS % (AUTO) 69.3 % (42.0-75.0); RED BLOOD COUNT 3.12 X10^6/uL (4.7-6.0); RED CELL DISTRIBUTION WIDTH 15.1 % (11.6-16.5); WHITE BLOOD COUNT 6.9 X10^3/uL (3.6-10.0)
[2022-10-08 06:11] LABS: ALANINE AMINOTRANSFERASE 118 Units/L (12-78); ALBUMIN 2.6 g/dL (3.4-5.0); ALKALINE PHOSPHATASE 59 Units/L (46-116); ASPARTATE AMINO TRANSFERASE 39 Units/L (15-37); BLOOD UREA NITROGEN 56 mg/dL (7-18); CALCIUM 7.4 mg/dL (8.5-10.1); CARBON DIOXIDE 16.7 mmol/L (21-32); CHLORIDE 110 mmol/L (98-107); COR CA(FOR HYPOALB) 8.5 mg/dL (8.5-10.1); CREATININE 7.35 mg/dL (0.70-1.30); SODIUM 139 mmol/L (136-145); TOTAL PROTEIN 5.3 g/dL (6.4-8.2); eGFR NON BLACK RACES 8 (>60)
[2022-10-08] MEDS: APRESOLINE TAB 25 MG PO SCH ×3 (06:11→21:12)
[2022-10-08] MEDS: NS 1/2 1,000 ML IV 1,000 ML IV SCH (06:23)
[2022-10-08] MEDS: PULMICORT NEB TX 0.5 MG NEB SCH ×2 (08:45→20:20)
[2022-10-08] MEDS: CATAPRES TAB 0.1 MG PO SCH ×2 (09:07→21:12)
[2022-10-08] MEDS: ROCEPHIN VIAL 1 GRAM 1 G in NS 100 ML IV 100 ML IV SCH (09:07)
[2022-10-08] MEDS: ROBITUSSIN DM PO SCH ×4 (09:07→21:11)
[2022-10-08] MEDS: VSL#3 PO SCH (09:07)
[2022-10-08] MEDS: HEPARIN SODIUM INJ 5000 UNITS SC SCH ×2 (09:08→21:13)
--- NOTE | 2022-10-08 11:05 | PCM.PROG ---
Progress Note Progress Note for Day of Date of Exam: 10/08/22 Subjective Subjective: Patient seen at bedside, no events overnight. His BP has been elevated in the 160-170s. He is on 2L NC with sats >95%. He states he feels better keeping his oxygen on. He has been ambulating to the bathroom, reports good urine output. He denies N/V/D. Labs reviewed: Hgb 9.6 BUN/Cr: 56/7.35 CXR: improvement in pneumonia Plan: Stop IVF, increase clonidine to 0.1 mg BID, add norvasc 5 mg daily. Continue hydralazine 25 mg TID. Monitor BP. Wean O2 as tolerated to keep sats>92%. Walk test for home O2 eval. Continue Rocephin and nebs. Monitor AM labs/imaging. Discussed with patient to keep his follow ups with PCP and [facility] upon discharge. Past Medical Family Social History Allergies: Allergies lisinopril Allergy (Verified 10/06/22 03:36) Vital Signs and I&O's Vital Signs: Temperature 97.7 F Pulse Rate [Left] 77 Pulse Rate 80 Respiratory Rate 20 Blood Pressure [Left Arm] 160/94 Blood Pressure [Right Arm] 156/94 Blood Pressure [Left Arm] 182/95 Blood Pressure 170/99 O2 Sat by Pulse Oximetry 98 Intake and Output: Intake & Output 10/05/22 10/06/22 10/07/22 10/08/22 23:59 23:59 23:59 23:59 Intake Total 3589 / 3589 3004 / 3004 1050 / 1050 Output Total 2330 / 2330 1205 / 1205 600 / 600 Balance 1259 / 1259 1799 / 1799 450 / 450 Physical Exam Oriented: Normal, Time, Person and Place Eyes: Normal Ear: Normal Nose: Normal Throat: Normal Respiratory: Normal Cardiovascular: Normal Tenderness: Normal Skin: Normal Musculoskeletal: Normal Psychiatric: Normal Mood Description: Calm Affect: Normal Speech Pattern: Clear and Appropriate Laboratory and Diagnostics Result Diagrams: 10/08/22 05:23 10/08/22 05:23 Labs: Laboratory WBC 6.9 X10^3/uL (3.6-10.0) 10/08/22 05:23 RBC 3.12 X10^6/uL (4.7-6.0) L 10/08/22 05:23 Hgb 9.6 g/dL (13.5-18.0) L 10/08/22 05:23 Hct 28.6 % (42.0-54.0) L 10/08/22 05:23 MCV 91.9 fL (80.0-100.0) 10/08/22 05:23 MCH 30.8 pg (27.0-34.0) 10/08/22 05:23 MCHC 33.5 g/dL (33.0-35.0) 10/08/22 05:23 RDW 15.1 % (11.6-16.5) 10/08/22 05:23 Plt Count 270 X10^3/uL (150.0-450.0) 10/08/22 05:23 MPV 9.2 fL (7.4-11.0) 10/08/22 05:23 Neut % (Auto) 69.3 % (42.0-75.0) 10/08/22 05:23 Lymph % (Auto) 11.6 % (21.0-51.0) L 10/08/22 05:23 [place] % (Auto) 6.7 % (0.0-13.0) 10/08/22 05:23 Eos % (Auto) 11.7 % (0.9-2.9) H 10/08/22 05:23 Baso % (Auto) 0.7 % (0.2-1.0) 10/08/22 05:23 Neut # (Auto) 4.8 x10^3/uL (2.2-4.8) 10/08/22 05:23 Lymph # (Auto) 0.8 X10^3/uL (1.3-2.9) L 10/08/22 05:23 [place] # (Auto) 0.5 x10^3/uL (0.3-0.8) 10/08/22 05:23 Eos # (Auto) 0.8 x10^3/uL (0.0-0.2) H 10/08/22 05:23 Baso # (Auto) 0.0 X10^3/uL (0.0-0.1) 10/08/22 05:23 Absolute Nucleated RBC 0.0 /100WBC 10/08/22 05:23 Sodium 139 mmol/L (136-145) 10/08/22 05:23 Corrected Sodium TNP 10/08/22 05:23 Potassium 4.0 mmol/L (3.5-5.1) 10/08/22 05:23 Chloride 110 mmol/L (98-107) H 10/08/22 05:23 Carbon Dioxide 16.7 mmol/L (21-32) L 10/08/22 05:23 BUN 56 mg/dL (7-18) H 10/08/22 05:23 Creatinine 7.35 mg/dL (0.70-1.30) H 10/08/22 05:23 Est GFR (MDRD) Af Amer 10 (>60) L 10/08/22 05:23 Est GFR (MDRD) Non-Af 8 (>60) L 10/08/22 05:23 Glucose 95 mg/dL (65-99) 10/08/22 05:23 Calcium 7.4 mg/dL (8.5-10.1) L 10/08/22 05:23 Corrected Calcium 8.5 mg/dL (8.5-10.1) 10/08/22 05:23 Total Bilirubin 0.30 mg/dL (0.2-1.0) 10/08/22 05:23 AST 39 Units/L (15-37) H 10/08/22 05:23 ALT 118 Units/L (12-78) H 10/08/22 05:23 Alkaline Phosphatase 59 Units/L (46-116) 10/08/22 05:23 Creatine Kinase 602 Units/L (39-308) H 10/06/22 04:15 Troponin I High Sens 58.9 ng/L (4.0-60.0) 10/06/22 21:24 B-Natriuretic Peptide 1080 pg/mL (0-79) H* 10/07/22 04:00 Total Protein 5.3 g/dL (6.4-8.2) L 10/08/22 05:23 Albumin 2.6 g/dL (3.4-5.0) L 10/08/22 05:23 Globulin 2.7 g/dL (2.5-4.5) 10/08/22 05:23 Albumin/Globulin Ratio 1.0 Ratio (1.1-2.1) L 10/08/22 05:23 Specimen Type Clean catch urine 10/06/22 05:22 Urine Color Yellow (YELLOW) 10/06/22 05:22 Urine Appearance Clear (CLEAR) 10/06/22 05:22 Urine pH 6.0 (5.0 - 8.0) 10/06/22 05:22 Ur Specific [place] 1.010 (1.000-1.030) 10/06/22 05:22 Urine Protein 4+ (NEGATIVE) 10/06/22 05:22 Urine Glucose (UA) 2+ (NEGATIVE) 10/06/22 05:22 Urine Ketones Negative (NEGATIVE) 10/06/22 05:22 Urine Blood 3+ (NEGATIVE) 10/06/22 05:22 Urine Nitrite Negative (NEGATIVE) 10/06/22 05: Urine Bilirubin Negative (NEGATIVE) 10/06/22 05:22 Urine Urobilinogen Normal (NORMAL) 10/06/22 05:22 Ur Leukocyte Esterase Negative (NEGATIVE) 10/06/22 05:22 Urine RBC 3-5 /HPF (0-3) A 10/06/22 05:22 Urine WBC 0-2 /HPF (0-5) 10/06/22 05:22 Ur Squamous Epith Cells Few /HPF (NEGATIVE) 10/06/22 05:22 Urine Bacteria Trace /HPF (NEGATIVE) 10/06/22 05:22 Hyaline Casts Few /LPF (NEGATIVE) 10/06/22 05:22 Urine Mucus Few /HPF (NEGATIVE) 10/06/22 05:22 Ur Culture Indicated? No/not indicated 10/06/22 05:22 Urine Opiates Screen Negative (NEG=<300) 10/06/22 05:22 Urine Methadone Screen Negative (NEG=<300) 10/06/22 05:22 Ur Barbiturates Screen Negative (NEG=<200) 10/06/22 05:22 Ur Phencyclidine Scrn Negative (NEG=<25) 10/06/22 05:22 Ur Amphetamines Screen Negative (NEG=<1000) 10/06/22 05:22 U Benzodiazepines Scrn Negative (NEG=<200) 10/06/22 05:22 Urine Cocaine Screen Positive (NEG=<300) 10/06/22 05:22 U Marijuana (THC) Screen Negative (NEG=<50) 10/06/22 05:22 SARS-CoV-2 (PCR) Negative (NEGATIVE) 10/06/22 10:00 Influenza Type A (PCR) Negative (NEGATIVE) 10/06/22 10:00 Influenza Type B (PCR) Negative (NEGATIVE) 10/06/22 10:00 RSV (PCR) Negative (NEGATIVE) 10/06/22 10:00 Plan (1) Hypertension, uncontrolled: Status: Acute Plan: Labetalol drip (2) CKD (chronic kidney disease) stage 5, GFR less than 15 ml/min: Status: Acute Plan: Slow IV hydration with normal saline at 75 cc an hour. (3) Bilateral pneumonia: Status: Acute Plan: Patient is currently receiving Levaquin. (4) Cocaine abuse: Status: Acute Plan: Counseled on stopping cocaine use (5) Noncompliance with medication regimen: Status: Acute
[2022-10-08] MEDS: NYSTATIN POWDER TOP SCH ×2 (12:03→21:10)
[2022-10-08] MEDS: NORVASC TAB 5 MG PO SCH (12:03)
[2022-10-09] MEDS: PROVENTIL NEB TX 0.083% 2.5MG/ 3ML NEB SCH ×7 (00:50→20:10)
[2022-10-09] MEDS: APRESOLINE TAB 25 MG PO SCH ×5 (03:57→21:48)
[2022-10-09 05:07] LABS: BASOPHILS # (AUTO) 0.1 X10^3/uL (0.0-0.1); BASOPHILS % (AUTO) 0.9 % (0.2-1.0); EOSINOPHILS % (AUTO) 15.3 % (0.9-2.9); HEMOGLOBIN 9.5 g/dL (13.5-18.0); LYMPHOCYTES # (AUTO) 0.7 X10^3/uL (1.3-2.9); LYMPHOCYTES % (AUTO) 10.2 % (21.0-51.0); MEAN CORPUSCULAR HEMOGLOBIN 31.1 pg (27.0-34.0); MEAN CORPUSCULAR VOLUME 91.6 fL (80.0-100.0); MEAN PLATELET VOLUME 9.1 fL (7.4-11.0); MONOCYTES # (AUTO) 0.6 x10^3/uL (0.3-0.8); MONOCYTES % (AUTO) 8.7 % (0.0-13.0); NEUTROPHILS # (AUTO) 4.4 x10^3/uL (2.2-4.8); NEUTROPHILS % (AUTO) 64.9 % (42.0-75.0); RED BLOOD COUNT 3.05 X10^6/uL (4.7-6.0); WHITE BLOOD COUNT 6.8 X10^3/uL (3.6-10.0)
[2022-10-09 05:17] LABS: ALBUMIN 2.6 g/dL (3.4-5.0); CALCIUM 7.7 mg/dL (8.5-10.1); CARBON DIOXIDE 20.5 mmol/L (21-32); COR CA(FOR HYPOALB) 8.8 mg/dL (8.5-10.1); CREATININE 6.79 mg/dL (0.70-1.30); TOTAL PROTEIN 5.3 g/dL (6.4-8.2)
[2022-10-09] MEDS: NYSTATIN POWDER TOP SCH ×2 (08:14→20:42)
[2022-10-09] MEDS: VSL#3 PO SCH (08:16)
[2022-10-09] MEDS: ROCEPHIN VIAL 1 GRAM 1 G in NS 100 ML IV 100 ML IV SCH (08:16)
[2022-10-09] MEDS: CATAPRES TAB 0.1 MG PO SCH ×2 (08:17→20:42)
[2022-10-09] MEDS: NORVASC TAB 5 MG PO SCH ×2 (08:17→20:41)
[2022-10-09] MEDS: ROBITUSSIN DM PO SCH ×4 (08:17→20:40)
[2022-10-09] MEDS: HEPARIN SODIUM INJ 5000 UNITS SC SCH ×2 (08:17→20:41)
[2022-10-09] MEDS: PULMICORT NEB TX 0.5 MG NEB SCH ×2 (08:46→20:10)
--- NOTE | 2022-10-09 11:33 | PCM.PROG ---
Progress Note Progress Note for Day of Date of Exam: 10/09/22 Subjective Subjective: Patient seen at bedside, no events overnight. His BP is better controlled, still some intermittent elevations. He is on 2L NC with sats >95%. He has been ambulating to the bathroom, reports good urine output. He denies N/V/D. He did the walk test yesterday and his sats were 91% on room air and then increased to 98% with 2 L. Patient states he feels very short of breath without the oxygen. Labs reviewed: Hgb 9.5 BUN/Cr: 51/6.79 Plan: Continue clonidine to 0.1 mg BID, increase norvasc to 5 mg BID. Continue hydralazine 25 mg TID. Monitor BP. Wean O2 as tolerated to keep sats>92%. Repeat walk test for home O2 eval. Continue Rocephin and nebs. Monitor AM labs/imaging. Discussed with patient to keep his follow ups with PCP and Nephro upon discharge. Past Medical Family Social History Allergies: Allergies lisinopril Allergy (Verified 10/06/22 03:36) Vital Signs and I&O's Vital Signs: Temperature 99.0 F Pulse Rate [Left] 80 Pulse Rate 84 Respiratory Rate 18 Blood Pressure [Left Arm] 158/90 Blood Pressure [Right Arm] 156/94 Blood Pressure [Left Arm] 182/95 Blood Pressure 170/99 O2 Sat by Pulse Oximetry 92 Intake and Output: Intake & Output 10/06/22 10/07/22 10/08/22 10/09/22 23:59 23:59 23:59 23:59 Intake Total 3589 / 3589 3004 / 3004 4603 / 4603 1570 / 1570 Output Total 2330 / 2330 1205 / 1205 1200 / 1200 1200 / 1200 Balance 1259 / 1259 1799 / 1799 3403 / 3403 370 / 370 Physical Exam Oriented: Normal Eyes: Normal Ear: Normal Nose: Normal Throat: Normal Respiratory: Normal Cardiovascular: Normal Tenderness: Normal Skin: Normal Musculoskeletal: Normal Psychiatric: Normal Mood Description: Calm Affect: Normal Speech Pattern: Clear and Appropriate Laboratory and Diagnostics Result Diagrams: 10/09/22 04:43 10/09/22 04:43 Labs: 10/06/22 06:50 Blood Blood Culture - Preliminary 10/06/22 06:40 Blood Blood Culture - Preliminary Laboratory WBC 6.8 X10^3/uL (3.6-10.0) 10/09/22 04:43 RBC 3.05 X10^6/uL (4.7-6.0) L 10/09/22 04:43 Hgb 9.5 g/dL (13.5-18.0) L 10/09/22 04:43 Hct 28.0 % (42.0-54.0) L 10/09/22 04:43 MCV 91.6 fL (80.0-100.0) 10/09/22 04:43 MCH 31.1 pg (27.0-34.0) 10/09/22 04:43 MCHC 34.0 g/dL (33.0-35.0) 10/09/22 04:43 RDW 15.0 % (11.6-16.5) 10/09/22 04:43 Plt Count 251 X10^3/uL (150.0-450.0) 10/09/22 04:43 MPV 9.1 fL (7.4-11.0) 10/09/22 04:43 Neut % (Auto) 64.9 % (42.0-75.0) 10/09/22 04:43 Lymph % (Auto) 10.2 % (21.0-51.0) L 10/09/22 04:43 [place] % (Auto) 8.7 % (0.0-13.0) 10/09/22 04:43 Eos % (Auto) 15.3 % (0.9-2.9) H 10/09/22 04:43 Baso % (Auto) 0.9 % (0.2-1.0) 10/09/22 04:43 Neut # (Auto) 4.4 x10^3/uL (2.2-4.8) 10/09/22 04:43 Lymph # (Auto) 0.7 X10^3/uL (1.3-2.9) L 10/09/22 04:43 [place] # (Auto) 0.6 x10^3/uL (0.3-0.8) 10/09/22 04:43 Eos # (Auto) 1.0 x10^3/uL (0.0-0.2) H 10/09/22 04:43 Baso # (Auto) 0.1 X10^3/uL (0.0-0.1) 10/09/22 04:43 Absolute Nucleated RBC 0.0 /100WBC 10/09/22 04:43 Sodium 143 mmol/L (136-145) 10/09/22 04:43 Corrected Sodium 144 mmol/L (136-145) 10/09/22 04:43 Potassium 3.6 mmol/L (3.5-5.1) 10/09/22 04:43 Chloride 111 mmol/L (98-107) H 10/09/22 04:43 Carbon Dioxide 20.5 mmol/L (21-32) L 10/09/22 04:43 BUN 51 mg/dL (7-18) H 10/09/22 04:43 Creatinine 6.79 mg/dL (0.70-1.30) H 10/09/22 04:43 Est GFR (MDRD) Af Amer 11 (>60) L 10/09/22 04:43 Est GFR (MDRD) Non-Af 9 (>60) L 10/09/22 04:43 Glucose 122 mg/dL (65-99) H 10/09/22 04:43 Calcium 7.7 mg/dL (8.5-10.1) L 10/09/22 04:43 Corrected Calcium 8.8 mg/dL (8.5-10.1) 10/09/22 04:43 Total Bilirubin 0.30 mg/dL (0.2-1.0) 10/09/22 04:43 AST 33 Units/L (15-37) 10/09/22 04:43 ALT 103 Units/L (12-78) H 10/09/22 04:43 Alkaline Phosphatase 60 Units/L (46-116) 10/09/22 04:43 Creatine Kinase 602 Units/L (39-308) H 10/06/22 04:15 Troponin I High Sens 58.9 ng/L (4.0-60.0) 10/06/22 21:24 B-Natriuretic Peptide 1080 pg/mL (0-79) H* 10/07/22 04:00 Total Protein 5.3 g/dL (6.4-8.2) L 10/09/22 04:43 Albumin 2.6 g/dL (3.4-5.0) L 10/09/22 04:43 Globulin 2.7 g/dL (2.5-4.5) 10/09/22 04:43 Albumin/Globulin Ratio 1.0 Ratio (1.1-2.1) L 10/09/22 04:43 Specimen Type Clean catch urine 10/06/22 05:22 Urine Color Yellow (YELLOW) 10/06/22 05:22 Urine Appearance Clear (CLEAR) 10/06/22 05:22 Urine pH 6.0 (5.0 - 8.0) 10/06/22 05:22 Ur Specific [place] 1.010 (1.000-1.030) 10/06/22 05:22 Urine Protein 4+ (NEGATIVE) 10/06/22 05:22 Urine Glucose (UA) 2+ (NEGATIVE) 10/06/22 05:22 Urine Ketones Negative (NEGATIVE) 10/06/22 05:22 Urine Blood 3+ (NEGATIVE) 10/06/22 05:22 Urine Nitrite Negative (NEGATIVE) 10/06/22 05:22 Urine Bilirubin Negative (NEGATIVE) 10/06/22 05:22 Urine Urobilinogen Normal (NORMAL) 10/06/22 05:22 Ur Leukocyte Esterase Negative (NEGATIVE) 10/06/22 05:22 Urine RBC 3-5 /HPF (0-3) A 10/06/22 05:22 Urine WBC 0-2 /HPF (0-5) 10/06/22 05:22 Ur Squamous Epith Cells Few /HPF (NEGATIVE) 10/06/22 05:22 Urine Bacteria Trace /HPF (NEGATIVE) 10/06/22 05:22 Hyaline Casts Few /LPF (NEGATIVE) 10/06/22 05:22 Urine Mucus Few /HPF (NEGATIVE) 10/06/22 05:22 Ur Culture Indicated? No/not indicated 10/06/22 05:22 Urine Opiates Screen Negative (NEG=<300) 10/06/22 05:22 Urine Methadone Screen Negative (NEG=<300) 10/06/22 05:22 Ur Barbiturates Screen Negative (NEG=<200) 10/06/22 05:22 Ur Phencyclidine Scrn Negative (NEG=<25) 10/06/22 05:22 Ur Amphetamines Screen Negative (NEG=<1000) 10/06/22 05:22 U Benzodiazepines Scrn Negative (NEG=<200) 10/06/22 05:22 Urine Cocaine Screen Positive (NEG=<300) 10/06/22 05:22 U Marijuana (THC) Screen Negative (NEG=<50) 10/06/22 05:22 SARS-CoV-2 (PCR) Negative (NEGATIVE) 10/06/22 10:00 Influenza Type A (PCR) Negative (NEGATIVE) 10/06/22 10:00 Influenza Type B (PCR) Negative (NEGATIVE) 10/06/22 10:00 RSV (PCR) Negative (NEGATIVE) 10/06/22 10:00 Plan (1) Hypertension, uncontrolled: Status: Acute Plan: Labetalol drip (2) CKD (chronic kidney disease) stage 5, GFR less than 15 ml/min: Status: Acute Plan: Slow IV hydration with normal saline at 75 cc an hour. (3) Bilateral pneumonia: Status: Acute Plan: Patient is currently receiving Levaquin. (4) Cocaine abuse: Status: Acute Plan: Counseled on stopping cocaine use (5) Noncompliance with medication regimen: Status: Acute
[2022-10-09] MEDS ORDERED: APRESOLINE TAB 25 MG PO ONE (16:19)
[2022-10-09] MEDS ORDERED: APRESOLINE TAB 25 MG ONE ×2 (16:24→20:24)
[2022-10-09] MEDS: MILK OF MAGNESIA PO SCH (20:40)
[2022-10-09] MEDS ORDERED: COLACE CAP 100 MG PO SCH (21:00)
[2022-10-10] MEDS: PROVENTIL NEB TX 0.083% 2.5MG/ 3ML NEB SCH ×3 (00:30→08:19)
[2022-10-10] MEDS: APRESOLINE TAB 25 MG PO SCH (05:07)
[2022-10-10 05:15] LABS: BASOPHILS # (AUTO) 0.2 X10^3/uL (0.0-0.1); BASOPHILS % (AUTO) 3.2 % (0.2-1.0); EOSINOPHILS # (AUTO) 1.3 x10^3/uL (0.0-0.2); EOSINOPHILS % (AUTO) 19.6 % (0.9-2.9); HEMOGLOBIN 9.6 g/dL (13.5-18.0); LYMPHOCYTES # (AUTO) 0.5 X10^3/uL (1.3-2.9); LYMPHOCYTES % (AUTO) 8.4 % (21.0-51.0); MEAN CORPUSCULAR HEMOGLOBIN 31.2 pg (27.0-34.0); MEAN CORPUSCULAR HGB CONC 34.2 g/dL (33.0-35.0); MEAN CORPUSCULAR VOLUME 91.3 fL (80.0-100.0); MEAN PLATELET VOLUME 8.9 fL (7.4-11.0); MONOCYTES # (AUTO) 0.2 x10^3/uL (0.3-0.8); MONOCYTES % (AUTO) 3.3 % (0.0-13.0); NEUTROPHILS # (AUTO) 4.3 x10^3/uL (2.2-4.8); NEUTROPHILS % (AUTO) 65.5 % (42.0-75.0); RED BLOOD COUNT 3.07 X10^6/uL (4.7-6.0); RED CELL DISTRIBUTION WIDTH 15.2 % (11.6-16.5); WHITE BLOOD COUNT 6.5 X10^3/uL (3.6-10.0)
[2022-10-10 05:23] LABS: CALCIUM 7.9 mg/dL (8.5-10.1); CARBON DIOXIDE 20.2 mmol/L (21-32); CREATININE 6.53 mg/dL (0.70-1.30)
[2022-10-10 05:36] LABS: BAND NEUTROPHILS % 1 % (0-10); PLATELET MORPHOLOGY COMMENT NORMAL (NORMAL)
[2022-10-10] MEDS: PULMICORT NEB TX 0.5 MG NEB SCH (08:19)
[2022-10-10 08:38] VITALS: BP 168/86
[2022-10-10] MEDS: ROCEPHIN VIAL 1 GRAM 1 G in NS 100 ML IV 100 ML IV SCH (08:50)
[2022-10-10] MEDS: NORVASC TAB 5 MG PO SCH (08:53)
[2022-10-10] MEDS: ROBITUSSIN DM PO SCH (08:53)
[2022-10-10] MEDS: CATAPRES TAB 0.1 MG PO SCH (08:53)
[2022-10-10] MEDS: VSL#3 PO SCH (08:53)
[2022-10-10] MEDS: MILK OF MAGNESIA PO SCH (08:53)
[2022-10-10] MEDS: HEPARIN SODIUM INJ 5000 UNITS SC SCH (08:54)
[2022-10-10] MEDS: NYSTATIN POWDER TOP SCH (08:55)
--- NOTE | 2022-10-10 09:07 | W.DIS.FURT ---
Summary of Discharge Admission Diagnosis Patient Problems (Updated 10/06/22 @ 13:27 by GELA DENISE) RML pneumonia (Acute) J18.9 Hypertension, uncontrolled (Acute) I10 Non-ST elevation OR (NSTEMI) (Acute) I21.4 CKD (chronic kidney disease) stage 5, GFR less than 15 ml/min (Acute) N18.5 Current recreational drug use (Acute) Z91.89 Elevated LFTs (Acute) R79.89 Vital Signs: Vital Signs (72 hours) 10/07/22 09:15 10/07/22 09:15 10/07/22 09:30 Temperature Pulse Rate 61 Pulse Rate [Brachial] Pulse Rate [Left] Respiratory Rate 13 Blood Pressure 126/78 127/79 Blood Pressure [Left Arm] Blood Pressure [Right Arm] O2 Sat by Pulse Oximetry 99 Oxygen Delivery Method Oxygen Flow Rate FIO2% 10/07/22 09:30 10/07/22 09:45 10/07/22 09:45 Temperature Pulse Rate 63 64 Pulse Rate [Brachial] Pulse Rate [Left] Respiratory Rate 13 14 Blood Pressure 123/75 Blood Pressure [Left Arm] Blood Pressure [Right Arm] O2 Sat by Pulse Oximetry 99 99 Oxygen Delivery Method Oxygen Flow Rate FIO2% 10/07/22 10:00 10/07/22 10:00 10/07/22 10:15 Temperature Pulse Rate 62 Pulse Rate [Brachial] Pulse Rate [Left] Respiratory Rate 13 Blood Pressure 119/72 115/69 Blood Pressure [Left Arm] Blood Pressure [Right Arm] O2 Sat by Pulse Oximetry 99 Oxygen Delivery Method Oxygen Flow Rate FIO2% 10/07/22 10:15 10/07/22 10:30 10/07/22 10:30 Temperature Pulse Rate 61 60 Pulse Rate [Brachial] Pulse Rate [Left] Respiratory Rate 14 13 Blood Pressure 122/75 Blood Pressure [Left Arm] Blood Pressure [Right Arm] O2 Sat by Pulse Oximetry 98 99 Oxygen Delivery Method Oxygen Flow Rate FIO2% 10/07/22 10:45 10/07/22 10:45 10/07/22 11:00 Temperature Pulse Rate 59 L Pulse Rate [Brachial] Pulse Rate [Left] Respiratory Rate 14 Blood Pressure 99/55 100/55 Blood Pressure [Left Arm] Blood Pressure [Right Arm] O2 Sat by Pulse Oximetry 99 Oxygen Delivery Method Oxygen Flow Rate FIO2% 10/07/22 11:00 10/07/22 11:00 10/07/22 11:15 Temperature Pulse Rate 59 L Pulse Rate [Brachial] Pulse Rate [Left] Respiratory Rate 14 Blood Pressure 100/55 101/55 Blood Pressure [Left Arm] Blood Pressure [Right Arm] O2 Sat by Pulse Oximetry 99 Oxygen Delivery Method Oxygen Flow Rate FIO2% 10/07/22 11:15 10/07/22 11:30 10/07/22 11:30 Temperature Pulse Rate 59 L 58 L Pulse Rate [Brachial] Pulse Rate [Left] Respiratory Rate 14 15 Blood Pressure 100/55 Blood Pressure [Left Arm] Blood Pressure [Right Arm] O2 Sat by Pulse Oximetry 99 99 Oxygen Delivery Method Oxygen Flow Rate FIO2% 10/07/22 11:45 10/07/22 11:45 10/07/22 12:00 Temperature Pulse Rate 61 Pulse Rate [Brachial] Pulse Rate [Left] Respiratory Rate 16 Blood Pressure 121/76 128/80 Blood Pressure [Left Arm] Blood Pressure [Right Arm] O2 Sat by Pulse Oximetry 99 Oxygen Delivery Method Oxygen Flow Rate FIO2% 10/07/22 12:00 10/07/22 12:15 10/07/22 12:15 Temperature Pulse Rate 61 61 Pulse Rate [Brachial] Pulse Rate [Left] Respiratory Rate 15 15 Blood Pressure 134/87 Blood Pressure [Left Arm] Blood Pressure [Right Arm] O2 Sat by Pulse Oximetry 100 100 Oxygen Delivery Method Oxygen Flow Rate FIO2% 10/07/22 12:30 10/07/22 12:30 10/07/22 12:45 Temperature 98.2 F Pulse Rate 60 Pulse Rate [Brachial] Pulse Rate [Left] Respiratory Rate 15 Blood Pressure 134/87 134/86 Blood Pressure [Left Arm] Blood Pressure [Right Arm] O2 Sat by Pulse Oximetry 99 Oxygen Delivery Method Oxygen Flow Rate FIO2% 10/07/22 12:45 10/07/22 13:00 10/07/22 13:00 Temperature Pulse Rate 59 L 60 Pulse Rate [Brachial] Pulse Rate [Left] Respiratory Rate 14 15 Blood Pressure 136/88 Blood Pressure [Left Arm] Blood Pressure [Right Arm] O2 Sat by Pulse Oximetry 98 99 Oxygen Delivery Method Oxygen Flow Rate FIO2% 10/07/22 13:15 10/07/22 13:16 10/07/22 13:16 Temperature Pulse Rate 64 64 Pulse Rate [Brachial] Pulse Rate [Left] Respiratory Rate 31 H 23 Blood Pressure 122/80 Blood Pressure [Left Arm] Blood Pressure [Right Arm] O2 Sat by Pulse Oximetry 99 99 Oxygen Delivery Method Oxygen Flow Rate FIO2% 10/07/22 13:30 10/07/22 13:30 10/07/22 13:45 Temperature Pulse Rate 61 Pulse Rate [Brachial] Pulse Rate [Left] Respiratory Rate 17 Blood Pressure 134/85 139/88 Blood Pressure [Left Arm] Blood Pressure [Right Arm] O2 Sat by Pulse Oximetry 99 Oxygen Delivery Method Oxygen Flow Rate FIO2% 10/07/22 13:45 10/07/22 14:00 10/07/22 14:00 Temperature Pulse Rate 64 64 Pulse Rate [Brachial] Pulse Rate [Left] Respiratory Rate 24 25 H Blood Pressure 137/87 Blood Pressure [Left Arm] Blood Pressure [Right Arm] O2 Sat by Pulse Oximetry 100 100 Oxygen Delivery Method Oxygen Flow Rate FIO2% 10/07/22 14:15 10/07/22 15:00 10/07/22 16:00 Temperature 97.5 F L Pulse Rate 65 65 67 Pulse Rate [Brachial] Pulse Rate [Left] Respiratory Rate 17 15 20 Blood Pressure 127/76 148/72 Blood Pressure [Left Arm] Blood Pressure [Right Arm] O2 Sat by Pulse Oximetry 100 100 100 Oxygen Delivery Method Room Air Oxygen Flow Rate FIO2% 10/07/22 19:34 10/07/22 19:00 10/07/22 23:45 Temperature 97.9 F 98.1 F Pulse Rate 75 79 Pulse Rate [Brachial] Pulse Rate [Left] Respiratory Rate 18 18 Blood Pressure 132/79 154/88 Blood Pressure [Left Arm] Blood Pressure [Right Arm] O2 Sat by Pulse Oximetry 100 100 Oxygen Delivery Method Nasal Cannula Oxygen Flow Rate 2 FIO2% 10/07/22 20:58 10/07/22 20:58 10/08/22 04:00 Temperature 98.3 F Pulse Rate 77 80 Pulse Rate [Brachial] Pulse Rate [Left] Respiratory Rate 18 Blood Pressure 170/99 Blood Pressure [Left Arm] Blood Pressure [Right Arm] O2 Sat by Pulse Oximetry 97 100 Oxygen Delivery Method Nasal Cannula Oxygen Flow Rate 2 FIO2% 28 10/08/22 04:41 10/08/22 05:18 10/08/22 07:00 Temperature Pulse Rate 75 Pulse Rate [Brachial] Pulse Rate [Left] Respiratory Rate Blood Pressure Blood Pressure [Left Arm] 165/98 Blood Pressure [Right Arm] O2 Sat by Pulse Oximetry 97 Oxygen Delivery Method Nasal Cannula Oxygen Flow Rate 2 FIO2% 10/08/22 08:00 10/08/22 08:45 10/08/22 08:45 Temperature 97.7 F Pulse Rate 80 Pulse Rate [Brachial] Pulse Rate [Left] 77 Respiratory Rate 20 Blood Pressure Blood Pressure [Left Arm] 160/94 Blood Pressure [Right Arm] O2 Sat by Pulse Oximetry 99 98 Oxygen Delivery Method Nasal Cannula Nasal Cannula Oxygen Flow Rate 2 2 FIO2% 28 10/08/22 12:00 10/08/22 16:00 10/08/22 19:46 Temperature 97.6 F 98.8 F 98.5 F Pulse Rate Pulse Rate [Brachial] Pulse Rate [Left] 66 74 80 Respiratory Rate 20 18 20 Blood Pressure Blood Pressure [Left Arm] 158/89 165/97 174/94 Blood Pressure [Right Arm] O2 Sat by Pulse Oximetry 100 99 100 Oxygen Delivery Method Nasal Cannula Nasal Cannula Nasal Cannula Oxygen Flow Rate 2 2 2 FIO2% 10/08/22 19:00 10/08/22 23:53 10/08/22 20:20 Temperature 97.2 F L Pulse Rate Pulse Rate [Brachial] Pulse Rate [Left] 75 Respiratory Rate 18 Blood Pressure Blood Pressure [Left Arm] 142/84 Blood Pressure [Right Arm] O2 Sat by Pulse Oximetry 96 Oxygen Delivery Method Nasal Cannula Nasal Cannula Nasal Cannula Oxygen Flow Rate 2 2 2 FIO2% 28 10/08/22 20:20 10/09/22 03:55 10/09/22 03:56 Temperature 97.5 F L Pulse Rate 79 Pulse Rate [Brachial] Pulse Rate [Left] 77 Respiratory Rate 18 Blood Pressure Blood Pressure [Left Arm] 178/106 212/100 Blood Pressure [Right Arm] O2 Sat by Pulse Oximetry 97 98 Oxygen Delivery Method Room Air Oxygen Flow Rate FIO2% 10/09/22 05:05 10/09/22 07:00 10/09/22 08:00 Temperature 99.0 F Pulse Rate Pulse Rate [Brachial] Pulse Rate [Left] 69 80 Respiratory Rate 18 18 Blood Pressure Blood Pressure [Left Arm] 173/78 158/90 Blood Pressure [Right Arm] O2 Sat by Pulse Oximetry 98 97 Oxygen Delivery Method Room Air Nasal Cannula Room Air Oxygen Flow Rate 2 FIO2% 10/09/22 08:46 10/09/22 08:46 10/09/22 11:52 Temperature 97.6 F Pulse Rate 84 Pulse Rate [Brachial] Pulse Rate [Left] 70 Respiratory Rate 18 Blood Pressure Blood Pressure [Left Arm] 152/100 Blood Pressure [Right Arm] O2 Sat by Pulse Oximetry 92 L 100 Oxygen Delivery Method Room Air Room Air Oxygen Flow Rate 2 FIO2% 28 10/09/22 16:00 10/09/22 16:20 10/09/22 16:30 Temperature 98.4 F Pulse Rate Pulse Rate [Brachial] Pulse Rate [Left] 76 Respiratory Rate 20 Blood Pressure Blood Pressure [Left Arm] 183/99 184/110 191/103 Blood Pressure [Right Arm] O2 Sat by Pulse Oximetry 97 Oxygen Delivery Method Room Air Oxygen Flow Rate FIO2% 10/09/22 17:25 10/09/22 17:25 10/09/22 19:00 Temperature Pulse Rate Pulse Rate [Brachial] Pulse Rate [Left] Respiratory Rate Blood Pressure Blood Pressure [Left Arm] 181/104 184/110 Blood Pressure [Right Arm] O2 Sat by Pulse Oximetry Oxygen Delivery Method Room Air Oxygen Flow Rate FIO2% 10/09/22 20:00 10/09/22 20:10 10/09/22 20:10 Temperature 98.8 F Pulse Rate 94 H Pulse Rate [Brachial] 82 Pulse Rate [Left] Respiratory Rate 20 Blood Pressure Blood Pressure [Left Arm] 220/132 Blood Pressure [Right Arm] O2 Sat by Pulse Oximetry 95 98 Oxygen Delivery Method Nasal Cannula Oxygen Flow Rate 2 FIO2% 28 10/09/22 21:17 10/09/22 22:30 10/09/22 23:29 Temperature 98.6 F Pulse Rate Pulse Rate [Brachial] 83 Pulse Rate [Left] Respiratory Rate 20 Blood Pressure Blood Pressure [Left Arm] 205/115 175/89 172/93 Blood Pressure [Right Arm] 202/106 O2 Sat by Pulse Oximetry Oxygen Delivery Method Room Air Oxygen Flow Rate FIO2% 10/10/22 03:48 10/10/22 06:55 10/10/22 07:00 Temperature 98.1 F Pulse Rate Pulse Rate [Brachial] 81 Pulse Rate [Left] Respiratory Rate 18 Blood Pressure Blood Pressure [Left Arm] Blood Pressure [Right Arm] 176/94 O2 Sat by Pulse Oximetry 95 Oxygen Delivery Method Room Air Room Air Room Air Oxygen Flow Rate FIO2% 10/10/22 08:00 10/10/22 08:19 10/10/22 08:19 Temperature 98.1 F Pulse Rate 84 Pulse Rate [Brachial] 82 Pulse Rate [Left] Respiratory Rate 18 Blood Pressure Blood Pressure [Left Arm] 168/86 Blood Pressure [Right Arm] O2 Sat by Pulse Oximetry 96 95 Oxygen Delivery Method Room Air Room Air Oxygen Flow Rate FIO2% Labs: Laboratory Last Values WBC 6.5 X10^3/uL (3.6-10.0) 10/10/22 04:45 RBC 3.07 X10^6/uL (4.7-6.0) L 10/10/22 04:45 Hgb 9.6 g/dL (13.5-18.0) L 10/10/22 04:45 Hct 28.0 % (42.0-54.0) L 10/10/22 04:45 MCV 91.3 fL (80.0-100.0) 10/10/22 04:45 MCH 31.2 pg (27.0-34.0) 10/10/22 04:45 MCHC 34.2 g/dL (33.0-35.0) 10/10/22 04:45 RDW 15.2 % (11.6-16.5) 10/10/22 04:45 Plt Count 254 X10^3/uL (150.0-450.0) 10/10/22 04:45 Plt Count Comment Adequate (ADEQUATE) 10/10/22 04:45 MPV 8.9 fL (7.4-11.0) 10/10/22 04:45 Neut % (Auto) 65.5 % (42.0-75.0) 10/10/22 04:45 Lymph % (Auto) 8.4 % (21.0-51.0) L 10/10/22 04:45 [place] % (Auto) 3.3 % (0.0-13.0) 10/10/22 04:45 Eos % (Auto) 19.6 % (0.9-2.9) H 10/10/22 04:45 Baso % (Auto) 3.2 % (0.2-1.0) H 10/10/22 04:45 Neut # (Auto) 4.3 x10^3/uL (2.2-4.8) 10/10/22 04:45 Lymph # (Auto) 0.5 X10^3/uL (1.3-2.9) L 10/10/22 04:45 [place] # (Auto) 0.2 x10^3/uL (0.3-0.8) L 10/10/22 04:45 Eos # (Auto) 1.3 x10^3/uL (0.0-0.2) H 10/10/22 04:45 Baso # (Auto) 0.2 X10^3/uL (0.0-0.1) H 10/10/22 04:45 Absolute Nucleated RBC 0.0 /100WBC 10/10/22 04:45 Total Counted 100 10/10/22 04:45 Neutrophils % (Manual) 64 % (39-76) 10/10/22 04:45 Band Neutrophils % 1 % (0-10) 10/10/22 04:45 Lymphocytes % (Manual) 14 % (13-43) 10/10/22 04:45 Monocytes % (Manual) 5 % (4-9) 10/10/22 04:45 Eosinophils % (Manual) 16 % (0-6) H 10/10/22 04:45 Plt Morphology Comment Normal (NORMAL) 10/10/22 04:45 RBC Morphology Normal (NORMAL) 10/10/22 04:45 Sodium 142 mmol/L (136-145) 10/10/22 04:45 Corrected Sodium 142 mmol/L (136-145) 10/10/22 04:45 Potassium 3.5 mmol/L (3.5-5.1) 10/10/22 04:45 Chloride 111 mmol/L (98-107) H 10/10/22 04:45 Carbon Dioxide 20.2 mmol/L (21-32) L 10/10/22 04:45 BUN 45 mg/dL (7-18) H 10/10/22 04:45 Creatinine 6.53 mg/dL (0.70-1.30) H 10/10/22 04:45 Est GFR (MDRD) Af Amer 12 (>60) L 10/10/22 04:45 Est GFR (MDRD) Non-Af 10 (>60) L 10/10/22 04:45 Glucose 119 mg/dL (65-99) H 10/10/22 04:45 Calcium 7.9 mg/dL (8.5-10.1) L 10/10/22 04:45 Corrected Calcium 8.8 mg/dL (8.5-10.1) 10/09/22 04:43 Total Bilirubin 0.30 mg/dL (0.2-1.0) 10/09/22 04:43 AST 33 Units/L (15-37) 10/09/22 04:43 ALT 103 Units/L (12-78) H 10/09/22 04:43 Alkaline Phosphatase 60 Units/L (46-116) 10/09/22 04:43 Creatine Kinase 602 Units/L (39-308) H 10/06/22 04:15 Troponin I High Sens 58.9 ng/L (4.0-60.0) 10/06/22 21:24 B-Natriuretic Peptide 1080 pg/mL (0-79) H* 10/07/22 04:00 Total Protein 5.3 g/dL (6.4-8.2) L 10/09/22 04:43 Albumin 2.6 g/dL (3.4-5.0) L 10/09/22 04:43 Globulin 2.7 g/dL (2.5-4.5) 10/09/22 04:43 Albumin/Globulin Ratio 1.0 Ratio (1.1-2.1) L 10/09/22 04:43 Specimen Type Clean catch urine 10/06/22 05:22 Urine Color Yellow (YELLOW) 10/06/22 05:22 Urine Appearance Clear (CLEAR) 10/06/22 05:22 Urine pH 6.0 (5.0 - 8.0) 10/06/22 05:22 Ur Specific [place] 1.010 (1.000-1.030) 10/06/22 05:22 Urine Protein 4+ (NEGATIVE) 10/06/22 05:22 Urine Glucose (UA) 2+ (NEGATIVE) 10/06/22 05:22 Urine Ketones Negative (NEGATIVE) 10/06/22 05:22 Urine Blood 3+ (NEGATIVE) 10/06/22 05:22 Urine Nitrite Negative (NEGATIVE) 10/06/22 05:22 Urine Bilirubin Negative (NEGATIVE) 10/06/22 05:22 Urine Urobilinogen Normal (NORMAL) 10/06/22 05:22 Ur Leukocyte Esterase Negative (NEGATIVE) 10/06/22 05:22 Urine RBC 3-5 /HPF (0-3) A 10/06/22 05:22 Urine WBC 0-2 /HPF (0-5) 10/06/22 05:22 Ur Squamous Epith Cells Few /HPF (NEGATIVE) 10/06/22 05:22 Urine Bacteria Trace /HPF (NEGATIVE) 10/06/22 05:22 Hyaline Casts Few /LPF (NEGATIVE) 10/06/22 05:22 Urine Mucus Few /HPF (NEGATIVE) 10/06/22 05:22 Ur Culture Indicated? No/not indicated 10/06/22 05:22 Urine Opiates Screen Negative (NEG=<300) 10/06/22 05:22 Urine Methadone Screen Negative (NEG=<300) 10/06/22 05:22 Ur Barbiturates Screen Negative (NEG=<200) 10/06/22 05:22 Ur Phencyclidine Scrn Negative (NEG=<25) 10/06/22 05:22 Ur Amphetamines Screen Negative (NEG=<1000) 10/06/22 05:22 U Benzodiazepines Scrn Negative (NEG=<200) 10/06/22 05:22 Urine Cocaine Screen Positive (NEG=<300) 10/06/22 05:22 U Marijuana (THC) Screen Negative (NEG=<50) 10/06/22 05:22 SARS-CoV-2 (PCR) Negative (NEGATIVE) 10/06/22 10:00 Influenza Type A (PCR) Negative (NEGATIVE) 10/06/22 10:00 Influenza Type B (PCR) Negative (NEGATIVE) 10/06/22 10:00 RSV (PCR) Negative (NEGATIVE) 10/06/22 10:00 Miscellaneous Test Cancelled 10/06/22 08:37 Reason For Visit: LOBAR PNEUMONIA, NSTEMI, UNCONTROLLED HTN, CKD #5, Discharge Diagnosis All Active Problems (Updated 10/06/22 @ 13:27 by GELA DNEISE) Bilateral pneumonia (Acute) Cocaine abuse (Acute) Noncompliance with medication regimen (Acute) HTN (hypertension) (Acute) End-stage renal disease (ESRD) (Acute) Acute UTI (Acute) RML pneumonia (Acute) Hypertension, uncontrolled (Acute) Non-ST elevation OR (NSTEMI) (Acute) CKD (chronic kidney disease) stage 5, GFR less than 15 ml/min (Acute) Current recreational drug use (Acute) Elevated LFTs (Acute) NSTEMI (non-ST elevated myocardial infarction) (Acute) Chest pain (Acute) CKD (chronic kidney disease) stage 5, GFR less than 15 ml/min (Acute) Current recreational drug use (Acute) Influenza A (Acute) Acute hypokalemia (Acute) CKD (chronic kidney disease) stage 4, GFR 15-29 ml/min (Acute) Cocaine abuse (Acute) Chest pain (Acute) Hypertension (Acute) Urinary retention (Acute) Hypertension (Acute) Abdominal pain (Acute) Substance abuse (Acute) Hypokalemia (Acute) Chronic renal insufficiency (Acute) Substance use (Acute) Hypertensive crisis (Acute) Acute hypokalemia (Acute) Acute on chronic renal failure (Acute) Hematuria (Acute) Acute GI bleeding (Acute) Nausea and vomiting (Acute) Hypernatremia (Acute) Hypertensive urgency (Acute) RLL pneumonia (Acute) Hypokalemia (Acute) H. pylori infection (Acute) Cocaine abuse (Acute) Hypertension, uncontrolled (Chronic) Hypertension (Chronic) Drug abuse and dependence (Chronic) Plan of Treatment: Continue with present treatment and follow up plan. Pt is to keep follow up appointment as instructed and take medications as ordered. Discharge Medications Discharge Medications: lisinopril Allergy (Verified 10/06/22 03:36) CONTINUE taking the following medications albuterol sulfate 90 mcg/actuation aerosol inhaler 1 inh inhalation QID 10/07/22 [History] clonidine HCl 0.2 mg tablet 0.2 tab PO DAILY 10/07/22 [History] hydralazine 25 mg tablet 25 tab PO BID 10/07/22 [History] oxycodone 10 mg tablet 1 tab PO TID PRN 10/07/22 [History] New Prescriptions amlodipine 5 mg tablet 5 mg PO BID 30 days #60 tabs 10/10/22 [Rx] clonidine HCl 0.1 mg tablet 0.1 mg PO BID 30 days #60 tabs 10/10/22 [Rx] hydralazine 50 mg tablet 50 mg PO TID 30 days #90 tabs 10/10/22 [Rx] Discharge Plan Discharge Plan Patient Disposition: 01 HOME, SELF-CARE Condition: Stable Health Concerns: Post Hospitalization: new medications and changes needed to prevent readmission or further decline. Pt educated and given instructions on all concerns. Care Plan Goals: Problem: Pain/Alteration in Comfort Goal: Improve/ Resolve Pain; Achieve Pain Tolerance Instructions: Take pain medications as prescribed. Contact your primary care provider if your pain is unrelieved or worsens. Follow up with primary care provider as directed. Plan of Treatment: Continue with present treatment and follow up plan. Pt is to keep follow up appointment as instructed and take medications as ordered. Prescriptions: New hydralazine 50 mg tablet 50 mg PO TID 30 Days Qty: 90 1RF clonidine HCl 0.1 mg Tablet 0.1 mg PO BID 30 Days Qty: 60 1RF amlodipine 5 mg Tablet 5 mg PO BID 30 Days Qty: 60 1RF Continued albuterol sulfate 90 mcg/actuation HFA aerosol inhaler 1 inh INHALATION QID Label Comments: [NO ORIGINAL SIG] oxycodone 10 mg tablet 1 tab PO TID PRN Discontinued hydralazine 25 mg tablet 25 tab PO BID Label Comments: [NO ORIGINAL SIG] clonidine HCl 0.2 mg tablet 0.2 tab PO DAILY Label Comments: [NO ORIGINAL SIG] Follow ups/Referrals Follow ups/Referrals: Kareem Guillory [Primary Care Provider] - 10/18/22 2:40 pm FRANCOIS SPEAR [CONSULTING PHYSICIAN] - 11/10/22 11:45 am Instructions Instructions: Supporting Someone With an Addiction, How to Take Your Blood Pressure, Illegal Drug Use Information, Adult, Supporting Someone With Substance Use Disorder, Hypertension, Community-Acquired Pneumonia, Adult, [id number] Stand Alone Forms: Excuse From Work or School
== END 2022-10-10 11:30 | disposition home or self-care (01) | DRG 682 ==
LOC: ER 03:23 → ICU 06:24 → MED/SURG 10-07 15:41
PROVIDERS: ADMIT Internal Medicine; ATTEND Family Medicine
DX: R07.9 Chest pain, unspecified; F14.10 Cocaine abuse, uncomplicated; R79.89 Other specified abnormal findings of blood chemistry; Z20.822 Contact with and (suspected) exposure to COVID-19; I12.9 Hypertensive chronic kidney disease with stage 1 through stage 4 chronic kidney disease, or unspecified chronic kidney disease; J18.9 Pneumonia, unspecified organism; Z91.14 Patient's other noncompliance with medication regimen; I21.4 Non-ST elevation (NSTEMI) myocardial infarction; N18.5 Chronic kidney disease, stage 5; Z91.89 Other specified personal risk factors, not elsewhere classified

== ENCOUNTER 2022-11-02 01:34 | Observation (INO) ==
--- NOTE | 2022-11-02 01:44 | DR.SOBA ---
HPI Time Seen Time Seen by Provider: 11/02/22 01:44 Complaints Chief Complaint Doctors Comments: 52 y/o male brought in by EMS for shortness of breath. Pt states people were smoking were he lives, plus keeping the house too hot, and he developed shortness of breath this evening. States he became very upset at the smokers. Pt oxygenating well on arrival, 100% on RA, but still feels dyspneic. BP very elevated. Denies chest pain, fever, nausea, vomiting. Has a dry cough. No swelling of the legs. Pt with a h/o chronic kidney disease, has declined dialysis in the past. Pt states he no longer smokes , drinks, or does drugs for the past 2 months. Reviewed Nurses Notes Reviewed: Yes Mode of Arrival Mode of Arrival: EMS PMH PMH Past Medical History: Asthma, Hypertension and Renal Disease Past Surgical History: No Surgical History: Unknown Family History Family Medical History: Diabetes Mellitus and Heart Failure Social History Do you use any recreational Drugs:: Yes (MARIJUANA, COCAINE) ROS Review of Systems Constitutional: No Symptoms Reported Eyes: No Symptoms Reported ENTM: No Symptoms Reported Respiratoy: Non-Productive Cough and Short of Breath Cardiovascular: No Symptoms Reported Gastrointestinal/Abdominal: No Symptoms Reported Genitourinary: No Symptoms Reported Neurological: No Symptoms Reported Musculoskeletal: No Symptoms Reported Integumentary: No Symptoms Reported Hematologic/Lymphatic: No Symptoms Reported Psychiatric: No Symptoms Reported All Other Systems: Reviewed and Negative PE Vital Signs Vitals: Temperature 98.3 F Pulse Rate 94 Respiratory Rate 24 Blood Pressure [Left Arm] 168/86 Blood Pressure 211/116 O2 Sat by Pulse Oximetry 100 General General Appearance: Alert and Anxious Eyes Eye exam: PERRL and EOMI ENT ENT Exam: Normal Oropharynx and Mucous Membranes Moist Neck Neck Exam: Normal Inspection and Full ROM Chest Chest Inspection: Normal Inspection Respiratory Respiratory Exam: Normal Lung Sounds Bilat; negative Accessory Muscle Use or Respiratory Distress Cardiovascular Cardiovascular Exam: Regular Rate, Normal Rhythm and Normal Heart Sounds Abdominal Exam Abdominal Exam: Normal Inspection, Normal Bowel Sounds and Soft; negative Tenderness Extremities Extremities Exam: Normal Inspection and Full ROM; negative Tenderness or Edema Neurologic Neurological Exam: Alert, Oriented X3 and CN II-XII Intact; negative Motor Sensory Deficit Skin Skin Exam: Warm and Dry COURSE Treatment Treatment: 52 y/o male brought in with dyspnea. W/u initiated. Very hypertensive, pt is anxious. Given IV ativan, hydralazine. Briefly helped. Given additional ativan/hydralazine. Labs show acceptable CBC. CMP with elevated BUN (50), Cr (7.53). His Cr usually runs in the 3's. Pt states he has declined pursuing dialysis in the past ("we're done with my kidneys"). Pt informed he has cocaine in the urine. Pt denies using for the past 2 months. BP still markedly elevated. Started a cardizem drip. Troponin elevated at 91 (has had higher levels in the past).. Will recommend admission for HTN urgency, acute on chronic renal failure. ROR Labs Reviewed Laboratory Results Reviewed?: Yes Result Diagrams: 11/02/22 02:25 11/02/22 02:25 Laboratory: WBC 8.6 X10^3/uL (3.6-10.0) 11/02/22 02:25 RBC 3.63 X10^6/uL (4.7-6.0) L 11/02/22 02:25 Hgb 11.0 g/dL (13.5-18.0) L 11/02/22 02:25 Hct 33.3 % (42.0-54.0) L 11/02/22 02:25 MCV 91.7 fL (80.0-100.0) 11/02/22 02:25 MCH 30.3 pg (27.0-34.0) 11/02/22 02:25 MCHC 33.1 g/dL (33.0-35.0) 11/02/22 02:25 RDW 15.4 % (11.6-16.5) 11/02/22 02:25 Plt Count 253 X10^3/uL (150.0-450.0) 11/02/22 02:25 MPV 9.0 fL (7.4-11.0) 11/02/22 02:25 Neut % (Auto) 67.1 % (42.0-75.0) 11/02/22 02:25 Lymph % (Auto) 12.8 % (21.0-51.0) L 11/02/22 02:25 [place] % (Auto) 6.5 % (0.0-13.0) 11/02/22 02:25 Eos % (Auto) 12.3 % (0.9-2.9) H 11/02/22 02:25 Baso % (Auto) 1.3 % (0.2-1.0) H 11/02/22 02:25 Neut # (Auto) 5.8 x10^3/uL (2.2-4.8) H 11/02/22 02:25 Lymph # (Auto) 1.1 X10^3/uL (1.3-2.9) L 11/02/22 02:25 [place] # (Auto) 0.6 x10^3/uL (0.3-0.8) 11/02/22 02:25 Eos # (Auto) 1.1 x10^3/uL (0.0-0.2) H 11/02/22 02:25 Baso # (Auto) 0.1 X10^3/uL (0.0-0.1) 11/02/22 02:25 Absolute Nucleated RBC 0.3 /100WBC 11/02/22 02:25 Sodium 145 mmol/L (136-145) 11/02/22 02:25 Corrected Sodium TNP 11/02/22 02:25 Potassium 3.4 mmol/L (3.5-5.1) L 11/02/22 02:25 Chloride 111 mmol/L (98-107) H 11/02/22 02:25 Carbon Dioxide 22.5 mmol/L (21-32) 11/02/22 02:25 BUN 50 mg/dL (7-18) H 11/02/22 02:25 Creatinine 7.53 mg/dL (0.70-1.30) H 11/02/22 02:25 Est GFR (MDRD) Af Amer 10 (>60) L 11/02/22 02:25 Est GFR (MDRD) Non-Af 8 (>60) L 11/02/22 02:25 Glucose 91 mg/dL (65-99) 11/02/22 02:25 Calcium 8.2 mg/dL (8.5-10.1) L 11/02/22 02:25 Corrected Calcium 9.0 mg/dL (8.5-10.1) 11/02/22 02:25 Total Bilirubin 0.30 mg/dL (0.2-1.0) 11/02/22 02:25 AST 32 Units/L (15-37) 11/02/22 02:25 ALT 39 Units/L (12-78) 11/02/22 02:25 Alkaline Phosphatase 66 Units/L (46-116) 11/02/22 02:25 Troponin I High Sens 91.0 ng/L (4.0-60.0) H* 11/02/22 02:25 B-Natriuretic Peptide 1840 pg/mL (0-79) H* 11/02/22 02:25 Total Protein 6.3 g/dL (6.4-8.2) L 11/02/22 02:25 Albumin 3.0 g/dL (3.4-5.0) L 11/02/22 02:25 Globulin 3.3 g/dL (2.5-4.5) 11/02/22 02:25 Albumin/Globulin Ratio 0.9 Ratio (1.1-2.1) L 11/02/22 02:25 Specimen Type Clean catch urine 11/02/22 02:17 Urine Color Pale yellow (YELLOW) 11/02/22 02:17 Urine Appearance Clear (CLEAR) 11/02/22 02:17 Urine pH 7.0 (5.0 - 8.0) 11/02/22 02:17 Ur Specific [place] 1.010 (1.000-1.030) 11/02/22 02:17 Urine Protein 4+ (NEGATIVE) 11/02/22 02:17 Urine Glucose (UA) 2+ (NEGATIVE) 11/02/22 02:17 Urine Ketones Negative (NEGATIVE) 11/02/22 02:17 Urine Blood 2+ (NEGATIVE) 11/02/22 02:17 Urine Nitrite Negative (NEGATIVE) 11/02/22 02:17 Urine Bilirubin Negative (NEGATIVE) 11/02/22 02:17 Urine Urobilinogen Normal (NORMAL) 11/02/22 02:17 Ur Leukocyte Esterase Negative (NEGATIVE) 11/02/22 02:17 Urine RBC 3-5 /HPF (0-3) A 11/02/22 02:17 Urine WBC 0-2 /HPF (0-5) 11/02/22 02:17 Ur Squamous Epith Cells Rare /HPF (NEGATIVE) 11/02/22 02:17 Urine Bacteria Negative /HPF (NEGATIVE) 11/02/22 02:17 Ur Culture Indicated? No/not indicated 11/02/22 02:17 Urine Opiates Screen Negative (NEG=<300) 11/02/22 02:17 Urine Methadone Screen Negative (NEG=<300) 11/02/22 02:17 Ur Barbiturates Screen Negative (NEG=<200) 11/02/22 02:17 Ur Phencyclidine Scrn Negative (NEG=<25) 11/02/22 02:17 Ur Amphetamines Screen Negative (NEG=<1000) 11/02/22 02:17 U Benzodiazepines Scrn Negative (NEG=<200) 11/02/22 02:17 Urine Cocaine Screen Positive (NEG=<300) 11/02/22 02:17 U Marijuana (THC) Screen Negative (NEG=<50) 11/02/22 02:17 XRAY XRAY Interpreted by: Radiologist X-ray Results: + cardiolmegaly. EKG Rate: 99 [place]: Normal Rhythm: NSR Hypertrophy: LAE and LVH ST: Nonsp Opioid Opioid Risk Tool Family Hx of Substance Abuse: Alcohol Personal Hx of Substance Abuse: Alcohol Age (Nav box if 16-45): No History of Preadolescent Sexual Abuse: No Psychological Disease: Depression Total: 0 Total Score Risk Category: Low Risk Copyright: Wilber AGEE predicting aberrant behaviors Discharge Plan Diagnosis Discharge Problem: Hypertensive urgency, [id number]-[id number] renal failure Discharge Plan Patient Disposition: 09 ADMITTED INPATIENT Condition: Stable Orders to Discharge Patient Discharge Orders: Transfer (Routine); Ordered 11/02/22 Ordered By: Sidney Rodas
[2022-11-02] MEDS ORDERED: APRESOLINE INJ 20 MG VIAL IVP ONE ×2 (01:48→02:39)
[2022-11-02] MEDS ORDERED: ATIVAN INJ 2 MG VIAL IVP ONE ×2 (01:50→02:39)
[2022-11-02] MEDS ORDERED: APRESOLINE INJ 20 MG VIAL ONE ×2 (01:55→02:42)
[2022-11-02] MEDS ORDERED: ATIVAN INJ 2 MG VIAL ONE ×2 (01:56→02:42)
--- NOTE | 2022-11-02 02:03 | EKG ---
Test Reason : dyspnea, HTN Blood Pressure : */* mmHG Vent. Rate : 99 BPM Atrial Rate : 99 BPM P-R Int : 136 ms QRS Dur : 88 ms QT Int : 374 ms P-R-T Axes : 66 39 140 degrees QTc Int : 479 ms Normal sinus rhythm Biatrial enlargement Left ventricular hypertrophy ( Sokolow-Arita , [place] product ) Nonspecific T wave abnormality Prolonged QT Abnormal ECG When compared with ECG of 06-OCT-2022 04:01, Nonspecific T wave abnormality now evident in Inferior leads T wave inversion now evident in Lateral leads Confirmed by David Ndiaye ([id number]) on 11/02/2022 9:50:19 AM Referred By: Confirmed By: David Ndiaye
[2022-11-02 02:26] LABS: BILIRUBIN,URINE NEGATIVE (NEGATIVE); BLOOD/HEMOGLOBIN,URINE 2+ (NEGATIVE); GLUCOSE, URINE 2+ (NEGATIVE); KETONES,URINE NEGATIVE (NEGATIVE); LEUKOCYTE ESTERASE ,URINE NEGATIVE (NEGATIVE); NITRITES,URINE NEGATIVE (NEGATIVE); PROTEIN,URINE 4+ (NEGATIVE); UROBILINOGEN,URINE NORMAL (NORMAL)
[2022-11-02 02:31] LABS: APPEARANCE,URINE CLEAR (CLEAR); COLOR,URINE PALE YELLOW (YELLOW)
[2022-11-02 02:32] LABS: BACTERIA,URINE NEGATIVE /HPF (NEGATIVE); SQUAMOUS EPITHELIAL CELL,UR RARE /HPF (NEGATIVE)
[2022-11-02 02:36] LABS: BASOPHILS # (AUTO) 0.1 X10^3/uL (0.0-0.1); EOSINOPHILS # (AUTO) 1.1 x10^3/uL (0.0-0.2); LYMPHOCYTES # (AUTO) 1.1 X10^3/uL (1.3-2.9); MEAN CORPUSCULAR HEMOGLOBIN 30.3 pg (27.0-34.0); MONOCYTES # (AUTO) 0.6 x10^3/uL (0.3-0.8); MONOCYTES % (AUTO) 6.5 % (0.0-13.0); RED BLOOD COUNT 3.63 X10^6/uL (4.7-6.0); WHITE BLOOD COUNT 8.6 X10^3/uL (3.6-10.0)
[2022-11-02 02:40] LABS: BASOPHILS % (AUTO) 1.3 % (0.2-1.0); EOSINOPHILS % (AUTO) 12.3 % (0.9-2.9); HEMATOCRIT 33.3 % (42.0-54.0); LYMPHOCYTES % (AUTO) 12.8 % (21.0-51.0); MEAN CORPUSCULAR HGB CONC 33.1 g/dL (33.0-35.0); MEAN CORPUSCULAR VOLUME 91.7 fL (80.0-100.0); NEUTROPHILS # (AUTO) 5.8 x10^3/uL (2.2-4.8); NEUTROPHILS % (AUTO) 67.1 % (42.0-75.0); RED CELL DISTRIBUTION WIDTH 15.4 % (11.6-16.5)
[2022-11-02] MEDS ORDERED: LASIX IVP ONE ×2 (02:40→02:42)
--- NOTE | 2022-11-02 02:40 | RAD ---
HISTORYPT IN ED VIA [facility] WITH C/O ASTHMA FLARE UP.STUDYCHEST, 1 VIEWCOMPARISONDeceer 2021.TECHNIQUEA single frontal view of the chest was obtained.FINDINGSThere are multiple EKG leads and wires seen overlying the patient. There is moderate to severe cardiomegaly. There is no focal infiltrate. There is no effusion. There is no pneumothorax. The osseous structures are intact.IMPRESSIONNo focal infiltrate or effusion.Electronically signed by: Carmen Omalley (Nov 02, 2022 02:37:23)
[2022-11-02 03:10] LABS: ALANINE AMINOTRANSFERASE 39 Units/L (12-78); ALKALINE PHOSPHATASE 66 Units/L (46-116); ASPARTATE AMINO TRANSFERASE 32 Units/L (15-37); BLOOD UREA NITROGEN 50 mg/dL (7-18); CALCIUM 8.2 mg/dL (8.5-10.1); CARBON DIOXIDE 22.5 mmol/L (21-32); CHLORIDE 111 mmol/L (98-107); CREATININE 7.53 mg/dL (0.70-1.30); SODIUM 145 mmol/L (136-145); TOTAL PROTEIN 6.3 g/dL (6.4-8.2); eGFR NON BLACK RACES 8 (>60)
[2022-11-02] MEDS ORDERED: CARDIZEM INJ 50 MG VIAL IVP ONE (03:20)
[2022-11-02] MEDS ORDERED: DILTIAZEM 125mg/125mL-0.7%NACL 125 MG/125 ML PLAST..BAG IV PRN (03:20)
[2022-11-02] MEDS ORDERED: NS 500 ML IV 500 ML IV ONE ×2 (03:21→03:27)
[2022-11-02] MEDS ORDERED: CARDIZEM INJ 125 MG VIAL ONE ×2 (03:23→03:24)
[2022-11-02] MEDS ORDERED: NS 100 ML IV 100 ML ONE (03:23)
[2022-11-02] MEDS ORDERED: NS 1,000 ML IV 1,000 ML IV SCH (05:09)
[2022-11-02] MEDS ORDERED: ROXICODONE TAB 5 MG PO PRN (05:14)
[2022-11-02 05:18] VITALS: BMI 25.3
[2022-11-02] MEDS: APRESOLINE TAB 25 MG PO SCH ×2 (05:28→14:04)
[2022-11-02] MEDS ORDERED: CATAPRES TAB 0.2 MG PO SCH (09:00)
[2022-11-02] MEDS ORDERED: PROCARDIA (PLAIN) CAP 10 MG PO ONE (10:25)
[2022-11-02] MEDS ORDERED: TOPROL XL PO ONE (10:33)
[2022-11-02] MEDS ORDERED: HEPARIN SODIUM INJ 5000 UNITS SC SCH (11:00)
[2022-11-02] MEDS ORDERED: TOPROL XL PO SCH (11:00)
[2022-11-02 14:45] VITALS: BP 126/78
--- NOTE | 2022-11-03 10:59 | DR.SSS ---
SHORT STAY SUMMARY Admission Date Date of Admission: 11/02/22 Discharge Date Discharge Date: 11/02/22 Admission Diagnoses Admission Diagnoses: Hypertensive urgency Chronic renal failure Discharge Diagnoses Discharge Diagnoses: Hypertension urgency Chronic renal failure Cocaine use Chief Complaint Chief Complaint: Chest tightness Headache Shortness of breath History of Present Illness History of Present Illness: Pt is a 52 year old male that presented after having shortness of breath, chest tightness, and headache. He presented to ED and was noted to be severely hypertensive. He reports not taking his blood pressure medications and on his UDS was noted to be positive for cocaine. Labs/imaging: Wbc 8.6, Hgb 11, Plt 253, Na 145, K 3.4, Creatinine 7.53, Glucose 91, Troponin ~90, CXR was obtained that did not reveal any acute findings. Troponin due to hypertensive urgency and is at his baseline. Pt was started on cardizem gtt, home medications, IV hydralazine prn, given procardia x1, and monitored on telemetry. He was able to be weaned off the cardizem gtt and blood pressure remained in normal range. Pt will be scheduled to see service coordinator elderly facility-Dr Herring outpatient. Instructed to take his blood pressure medications as prescribed. Pt discharged in stable condition. Instructed to follow up with pcp in 1 week. Past Medical History Past Medical History: Asthma, Hypertension and Renal Disease Past Surgical History Surgical History: No History Allergies Allergies Allergy/AdvReac Type Severity Reaction Status Date / Time lisinopril Allergy Verified 10/06/22 03:36 Medications Home Medications: lisinopril Allergy (Verified 10/06/22 03:36) CONTINUE taking the following medications albuterol sulfate 1.25 mg/3 mL solution for nebulization ml 11/02/22 [History] albuterol sulfate 90 mcg/actuation aerosol inhaler inh inhalation 11/02/22 [History] amlodipine 5 mg tablet 1 tab PO BID 11/02/22 [History] clonidine HCl 0.1 mg tablet 1 tab PO BID 11/02/22 [History] clonidine HCl 0.2 mg tablet 1 tab PO BID 11/02/22 [History] fluticasone propionate 50 mcg/actuation nasal spray,suspension ea intranasal 11/02/22 [History] hydralazine 50 mg tablet 1 tab PO TID 11/02/22 [History] oxycodone 10 mg tablet 1 tab PO TID PRN 11/02/22 [History] Family History Family Medical History: Diabetes Mellitus and Heart Failure Social History Does patient currently use any type of tobacco product: No Have you used tobacco products in the last 12 months: Yes Type of Tobacco Use: Cigarettes Alcohol Use: None Drug Use: Cocaine and Marijuana Review of Systems Constitutional: No Symptoms Reported Eyes: No Symptoms Reported ENT: No Symptoms Reported Respiratory: Shortness of Breath Cardiovascular: Chest Pain Gastrointestinal: No Symptoms Reported Genitourinary: No Symptoms Reported Musculoskeletal: No Symptoms Reported Skin: No Symptoms Reported Neurological: No Symptoms Reported Physical Exam Vital Signs: Last Vital Signs Temp 98.9 F 11/02/22 12:00 Pulse 61 11/02/22 14:31 Resp 21 11/02/22 14:31 BP 126/78 11/02/22 14:31 Pulse Ox 97 11/02/22 14:31 O2 Del Method Nasal Cannula 11/02/22 09:32 O2 Flow Rate 2 11/02/22 09:32 FiO2 28 11/02/22 09:32 Oriented: Normal Eyes: Normal Ear: Normal Nose: Normal Throat: Normal Respiratory: Clear Throughout Cardiovascular: Normal : Normal Auscultation: Bowel Sounds: Normal Palpation: Normal Tenderness: Normal Skin: Normal Musculoskeletal: Normal Psychiatric: Normal Mood Description: Calm Affect: Normal Speech Pattern: Clear Labs Labs: Laboratory Last Values WBC 8.6 X10^3/uL (3.6-10.0) 11/02/22 02:25 RBC 3.63 X10^6/uL (4.7-6.0) L 11/02/22 02:25 Hgb 11.0 g/dL (13.5-18.0) L 11/02/22 02:25 Hct 33.3 % (42.0-54.0) L 11/02/22 02:25 MCV 91.7 fL (80.0-100.0) 11/02/22 02:25 MCH 30.3 pg (27.0-34.0) 11/02/22 02:25 MCHC 33.1 g/dL (33.0-35.0) 11/02/22 02:25 RDW 15.4 % (11.6-16.5) 11/02/22 02:25 Plt Count 253 X10^3/uL (150.0-450.0) 11/02/22 02:25 MPV 9.0 fL (7.4-11.0) 11/02/22 02:25 Neut % (Auto) 67.1 % (42.0-75.0) 11/02/22 02:25 Lymph % (Auto) 12.8 % (21.0-51.0) L 11/02/22 02:25 [place] % (Auto) 6.5 % (0.0-13.0) 11/02/22 02:25 Eos % (Auto) 12.3 % (0.9-2.9) H 11/02/22 02:25 Baso % (Auto) 1.3 % (0.2-1.0) H 11/02/22 02:25 Neut # (Auto) 5.8 x10^3/uL (2.2-4.8) H 11/02/22 02:25 Lymph # (Auto) 1.1 X10^3/uL (1.3-2.9) L 11/02/22 02:25 [place] # (Auto) 0.6 x10^3/uL (0.3-0.8) 11/02/22 02:25 Eos # (Auto) 1.1 x10^3/uL (0.0-0.2) H 11/02/22 02:25 Baso # (Auto) 0.1 X10^3/uL (0.0-0.1) 11/02/22 02:25 Absolute Nucleated RBC 0.3 /100WBC 11/02/22 02:25 Sodium 145 mmol/L (136-145) 11/02/22 02:25 Corrected Sodium TNP 11/02/22 02:25 Potassium 3.4 mmol/L (3.5-5.1) L 11/02/22 02:25 Chloride 111 mmol/L (98-107) H 11/02/22 02:25 Carbon Dioxide 22.5 mmol/L (21-32) 11/02/22 02:25 BUN 50 mg/dL (7-18) H 11/02/22 02:25 Creatinine 7.53 mg/dL (0.70-1.30) H 11/02/22 02:25 Est GFR (MDRD) Af Amer 10 (>60) L 11/02/22 02:25 Est GFR (MDRD) Non-Af 8 (>60) L 11/02/22 02:25 Glucose 91 mg/dL (65-99) 11/02/22 02:25 Calcium 8.2 mg/dL (8.5-10.1) L 11/02/22 02:25 Corrected Calcium 9.0 mg/dL (8.5-10.1) 11/02/22 02:25 Total Bilirubin 0.30 mg/dL (0.2-1.0) 11/02/22 02:25 AST 32 Units/L (15-37) 11/02/22 02:25 ALT 39 Units/L (12-78) 11/02/22 02:25 Alkaline Phosphatase 66 Units/L (46-116) 11/02/22 02:25 Troponin I High Sens 90.7 ng/L (4.0-60.0) H* 11/02/22 07:10 B-Natriuretic Peptide 1840 pg/mL (0-79) H* 11/02/22 02:25 Total Protein 6.3 g/dL (6.4-8.2) L 11/02/22 02:25 Albumin 3.0 g/dL (3.4-5.0) L 11/02/22 02:25 Globulin 3.3 g/dL (2.5-4.5) 11/02/22 02:25 Albumin/Globulin Ratio 0.9 Ratio (1.1-2.1) L 11/02/22 02:25 Specimen Type Clean catch urine 11/02/22 02:17 Urine Color Pale yellow (YELLOW) 11/02/22 02:17 Urine Appearance Clear (CLEAR) 11/02/22 02:17 Urine pH 7.0 (5.0 - 8.0) 11/02/22 02:17 Ur Specific [place] 1.010 (1.000-1.030) 11/02/22 02:17 Urine Protein 4+ (NEGATIVE) 11/02/22 02:17 Urine Glucose (UA) 2+ (NEGATIVE) 11/02/22 02:17 Urine Ketones Negative (NEGATIVE) 11/02/22 02:17 Urine Blood 2+ (NEGATIVE) 11/02/22 02:17 Urine Nitrite Negative (NEGATIVE) 11/02/22 02:17 Urine Bilirubin Negative (NEGATIVE) 11/02/22 02:17 Urine Urobilinogen Normal (NORMAL) 11/02/22 02:17 Ur Leukocyte Esterase Negative (NEGATIVE) 11/02/22 02:17 Urine RBC 3-5 /HPF (0-3) A 11/02/22 02:17 Urine WBC 0-2 /HPF (0-5) 11/02/22 02:17 Ur Squamous Epith Cells Rare /HPF (NEGATIVE) 11/02/22 02:17 Urine Bacteria Negative /HPF (NEGATIVE) 11/02/22 02:17 Ur Culture Indicated? No/not indicated 11/02/22 02:17 Urine Opiates Screen Negative (NEG=<300) 11/02/22 02:17 Urine Methadone Screen Negative (NEG=<300) 11/02/22 02:17 Ur Barbiturates Screen Negative (NEG=<200) 11/02/22 02:17 Ur Phencyclidine Scrn Negative (NEG=<25) 11/02/22 02:17 Ur Amphetamines Screen Negative (NEG=<1000) 11/02/22 02:17 U Benzodiazepines Scrn Negative (NEG=<200) 11/02/22 02:17 Urine Cocaine Screen Positive (NEG=<300) 11/02/22 02:17 U Marijuana (THC) Screen Negative (NEG=<50) 11/02/22 02:17 Assessment/Plan (1) Hypertensive urgency: (2) Fapeg-so-jpsowxx renal failure: (3) Cocaine abuse: Hospital Course Hospital Course: Pt is a 52 year old male that presented after having shortness of breath, chest tightness, and headache. He presented to ED and was noted to be severely hypertensive. He reports not taking his blood pressure medications and on his UDS was noted to be positive for cocaine. Labs/imaging: Wbc 8.6, Hgb 11, Plt 253, Na 145, K 3.4, Creatinine 7.53, Glucose 91, Troponin ~90, CXR was obtained that did not reveal any acute findings. Troponin due to hypertensive urgency and is at his baseline. Pt was started on cardizem gtt, home medications, IV hydralazine prn, given procardia x1, and monitored on telemetry. He was able to be weaned off the cardizem gtt and blood pressure remained in normal range. Pt will be scheduled to see service coordinator elderly facility-Dr Herring outpatient. Instructed to take his blood pressure medications as prescribed. Pt discharged in stable condition. Instructed to follow up with pcp in 1 week. Discharge Medications Discharge Medications: Home Medication List albuterol sulfate 1.25 mg/3 mL solution for nebulization ml 11/02/22 [History] albuterol sulfate 90 mcg/actuation aerosol inhaler inh inhalation 11/02/22 [History] amlodipine 5 mg tablet 1 tab PO BID 11/02/22 [History] clonidine HCl 0.1 mg tablet 1 tab PO BID 11/02/22 [History] clonidine HCl 0.2 mg tablet 1 tab PO BID 11/02/22 [History] fluticasone propionate 50 mcg/actuation nasal spray,suspension ea intranasal 11/02/22 [History] hydralazine 50 mg tablet 1 tab PO TID 11/02/22 [History] oxycodone 10 mg tablet 1 tab PO TID PRN 11/02/22 [History] Prescriptions: Discharge Plan Discharge Plan Patient Disposition: 01 HOME, SELF-CARE Condition: Stable Health Concerns: Post Hospitalization: new medications and changes needed to prevent readmission or further decline. Pt educated and given instructions on all concerns. Care Plan Goals: Problem: Pain/Alteration in Comfort Goal: Improve/ Resolve Pain; Achieve Pain Tolerance Instructions: Take pain medications as prescribed. Contact your primary care provider if your pain is unrelieved or worsens. Follow up with primary care provider as directed. Plan of Treatment: Continue with present treatment and follow up plan. Pt is to keep follow up appointment as instructed and take medications as ordered. Prescriptions: No Action clonidine HCl 0.1 mg tablet 1 tab PO BID albuterol sulfate 1.25 mg/3 mL solution for nebulization Label Comments: [NO ORIGINAL SIG] amlodipine 5 mg tablet 1 tab PO BID clonidine HCl 0.2 mg tablet 1 tab PO BID hydralazine 50 mg tablet 1 tab PO TID albuterol sulfate 90 mcg/actuation HFA aerosol inhaler INHALATION Label Comments: [NO ORIGINAL SIG] fluticasone propionate 50 mcg/actuation spray,suspension INTRANASAL Label Comments: [NO ORIGINAL SIG] oxycodone 10 mg tablet 1 tab PO TID PRN Orders to Discharge Patient Discharge Orders: Discharge (Routine); Ordered 11/02/22 Ordered By: Kareem Guillory Follow ups/Referrals Follow ups/Referrals: Kareem Guillory [Primary Care Provider] - 11/09/22 1:40 pm FRANCOIS SPEAR [CONSULTING PHYSICIAN] - 11/09/22 2:00 pm Instructions Instructions: Cocaine Use Disorder, How to Take Your Blood Pressure, Substance Use Disorder, Preventing Hypertension, Finding Treatment for Addiction, Hypertension Stand Alone Forms: Excuse From Work or School
== END 2022-11-02 15:10 | disposition home or self-care (01) ==
LOC: ER 01:34 → INTOOBSV 04:34 → ICU 04:34
PROVIDERS: ADMIT Internal Medicine; ATTEND Family Medicine
DX: N17.8 Other acute kidney failure; R94.31 Abnormal electrocardiogram [ECG] [EKG]; F14.90 Cocaine use, unspecified, uncomplicated; R07.89 Other chest pain; I12.9 Hypertensive chronic kidney disease with stage 1 through stage 4 chronic kidney disease, or unspecified chronic kidney disease; N18.9 Chronic kidney disease, unspecified; R51.9 Headache, unspecified; I16.0 Hypertensive urgency; R77.8 Other specified abnormalities of plasma proteins; R06.02 Shortness of breath